=== PATIENT | female | born 1995 ===

== ENCOUNTER 2021-11-03 13:09 | Emergency (ER) | payer OTHER, SELFPAY ==
--- NOTE | 2021-11-03 13:13 | ECG_ITS ---
Test Reason : chest muscle pain Blood Pressure : / mmHG Vent. Rate : 098 BPM Atrial Rate : 098 BPM P-R Int : 152 ms QRS Dur : 086 ms QT Int : 356 ms P-R-T Axes : 039 007 021 degrees QTc Int : 454 ms Normal sinus rhythm Inferior infarct , age undetermined Cannot rule out Anterior infarct , age undetermined Abnormal ECG No previous ECGs available Referred By: Generic ED Physician Electronically Signed By:DAYAMI BOWERS MD
[2021-11-03 13:14] VITALS: BP 147/93; PULSE 90; RESP 18; TEMP 36.6; O2SAT 98; BMI 50.1
--- NOTE | 2021-11-03 15:41 | ED.GENADULT ---
HPI - General Adult General Chief complaint: General Medical Stated complaint: chest pain Time Seen by Provider: 11/03/21 15:41 Source: patient Mode of arrival: ambulatory Limitations: no limitations History of Present Illness HPI narrative: 26 yo female presents to the ER for evaluation of chest wall pain since yesterday after she was pushing a vehicle. She reports the pain is in left side of her breast bone and it is worse with movement her arms and when she moves her head up. She states the pain got worse after she was pushing her uncle's car. She did fall or sustain any injuries. She denies any other muscle pains or aches. No SOB. No leg pain or swelling. She took some tylenol for the pain but did not have any relief. MD complaint: chest wall pain Onset (ago): day(s) (1) Location: chest Radiation: non-radiation Severity: moderate Severity scale (1-10): 6 Quality: aching Pain Consistency: intermittent Relieving factors: rest Exacerbating factors: movement Associated symptoms: denies other symptoms Treatments prior to arrival: none Related Data Previous Rx's Medication Instructions Recorded naproxen 500 mg tablet 500 mg PO BID PRN pain #20 tabs 11/03/21 Allergies Allergy/AdvReac Type Severity Reaction Status Date / Time No Known Allergies Allergy Unverified 01/11/20 16:13 [No Known Allergies*] Review of Systems Review of Systems: Constitutional: No Fever, No Chills ENT/Mouth: No sore throat Cardiovascular: + Chest Pain, No SOB, No Orthopnea, No Edema Respiratory: No Cough, No Sputum, No Wheezing, No dyspnea Gastrointestinal: No Nausea, No Vomiting, No abdominal Pain Musculoskeletal: No joint pain, No Myalgias Skin: No Skin Lesions, No rash Neuro: No Weakness, No Numbness, No Dizziness, No Headache Psych: No Anxiety/Panic, No Depression Heme/Lymph: No Bruising, No Lymphadenopathy Physical Exam ED Vital Signs: Vital Signs - 24 hr 11/03/21 13:14 Temperature 98 F Pulse Rate 90 Respiratory Rate 18 Blood Pressure 147/93 H Pulse Oximetry 98 BMI result Body Mass Index 50.1 Appearance: Alert. Oriented X3. No acute distress. HEENT: normal inspection CVS: Normal heart rate and rhythm. Pulses normal. Respiratory: No respiratory distress. Lungs CTAB. No chest wall ecchymosis. Tenderness along the left sternal border, reproducible with palpation and movement of the arms. Skin: Skin warm and dry. Normal skin color. Normal skin turgor. No rashes. Extremities: normal inspection x4, no leg swelling, no calf pain Neuro: Oriented X 3. Grossly normal, nonfocal Course Course Course Narrative: 26 yo female presents to the ER with nontraumatic, reproducible central chest pain that is worse with movement of her UE. Started after she was playing with her kids and pushing her uncle's car. EKG is unremarkable. Exam and clinical presentation is consistent with costochondritis. PERC negative. Will treat with NSAID and have her follow up with her PCP. Return precauations discussed. Stable for d/c home. Medical Decision Making ECG Data Attestation: I personally reviewed and interpreted this ECG as follows: Interpretation: normal sinus rhythm, HR 98 BPM, normal NV interval, normal QTc, no ST segment elevations or depressions. Critical Care Time Critical Care Time Critical Care Time: No Discharge Plan Discharge Clinical Impression: Acute costochondritis Patient Disposition: Home, Self-Care Instructions: Costochondritis (ED) Additional Instructions: Your EKG today was normal. Take the prescribed anti-inflammatory pain medication as needed for pain. Rest. No heavy lifting until better. Follow up with your PCP as needed. If you develop new or worsening symptoms call 911 or come back to the ER for further evaluation. Prescriptions: New naproxen 500 mg tablet 500 mg PO BID PRN (Reason: pain) Qty: 20 0RF
== END 2021-11-03 16:17 | disposition home or self-care (01) ==
PROVIDERS: Emergency Provider Emergency Medicine
DX: M94.0 Chondrocostal junction syndrome [Tietze] (principal); R07.89 Other chest pain
CPT/HCPCS: 93005; 99283

== ENCOUNTER 2021-12-24 16:34 | Emergency (ER) | payer OTHER, SELFPAY ==
[2021-12-24 16:36] VITALS: BP 135/105; PULSE 111; RESP 18; TEMP 36.8; O2SAT 98; BMI 50.8
--- NOTE | 2021-12-24 18:19 | ED.GENADULT ---
HPI - General Adult General Chief complaint: Eye Problems Stated complaint: facial pressure,headache Time Seen by Provider: 12/24/21 17:24 Source: patient Mode of arrival: ambulatory Limitations: no limitations History of Present Illness HPI narrative: Patient is a 26 year old female presenting to the emergency department today with drainage of her left eye and not feeling well. Patient states that her daughter has been home sick with the same symptoms. Patient states that over the last 3 days, she has woken up with left eye drainage and pressure as well not feeling well. Patient denies any dizziness, lightheadedness, abdominal pain, nausea, vomiting, fever, chills, blurry vision, double vision, loss of vision, chest pain, difficulty breathing, shortness of breath, back pain, night sweats, pain with urination, increased urinary frequency, increased urinary urgency, blood in her urine or stool, syncope or a near syncopal episode, recent trauma or falls, bowel incontinence, bladder incontinence, bowel retention, bladder retention, or any other complaints at this time. Onset (ago): day(s) (3) Radiation: non-radiation Severity: mild Severity scale (1-10): 2 Quality: aching and dull Pain Consistency: constant Relieving factors: none Exacerbating factors: none Associated symptoms: denies other symptoms Treatments prior to arrival: none Related Data Previous Rx's Medication Instructions Recorded naproxen 500 mg tablet 500 mg PO BID PRN pain #20 tabs 11/03/21 erythromycin 5 mg/gram (0.5 %) eye 0.5 inch ophthalmic (eye) DAILY 7 12/24/21 ointment days #3.5 grams penicillin V potassium 500 mg 500 mg PO BID 10 days #20 tabs 12/24/21 tablet Allergies Allergy/AdvReac Type Severity Reaction Status Date / Time No Known Allergies Allergy Unverified 01/11/20 16:13 [No Known Allergies*] Review of Systems Constitutional: Constitutional: Reports no additional constitutional complaints, Denies chills, Denies fever(s) and Denies night sweats Eyes: Eyes: Reports no additional eye complaints, Denies blurry vision, Denies change in vision, Denies diplopia, Reports eye discharge, Denies loss of vision and Denies eye pain ENT: Denies dizziness Cardiovascular: Cardiovascular: Reports no additional cardiovascular complaints, Denies chest pain, Denies lightheadedness, Denies Loss of Consciousness and Denies dyspnea Respiratory: Respiratory: Reports no additional respiratory complaints and Denies dyspnea Gastrointestinal: Gastrointestinal: Reports no additional gastrointestinal complaints, Denies abdominal pain, Denies melena, Denies hematochezia, Denies change in bowel habits and Denies change in stool character Genitourinary: Genitourinary: Denies hematuria, Denies urinary frequency, Denies dysuria, Denies urinary incontinence, Denies urinary hesitancy and Denies urinary urgency Musculoskeletal: Musculoskeletal: Reports no additional musculoskeletal complaints, Denies numbness and Denies tingling Neurologic: Denies dizziness, Denies loss of vision, Denies numbness and Denies tingling Psychiatric: Psychiatric: Reports no additional psychiatric complaints Endocrine: Endocrine: Reports no additional endocrine complaints Hematologic/Lymphatic: Hematologic/Lymphatic: Reports no additional hematologic/lymphatic complaints Allergic/Immunologic: Allergic/Immunologic: Reports no additional allergic/immunologic complaints [facility] Past Medical History Attestation statement: The following information was validated with the patient. Source: old records reviewed Social History Social History Advance Directives: No Advance Directives Information Provided: No Physical Exam ED Vital Signs: Vital Signs - 24 hr 12/24/21 16:36 Temperature 98.2 F Pulse Rate 111 H Respiratory Rate 18 Blood Pressure 135/105 H Pulse Oximetry 98 Oxygen Delivery Method Room Air BMI result Body Mass Index 50.8 Const General: cooperative, no acute distress, alert and awake Nutritional Appearance: well nourished Orientation/consciousness: patient oriented x3 Limitations: no limitations [facility] Head: Yes normal to inspection and Yes atraumatic Ears: hearing grossly normal bilaterally and external ears normal General nose exam: Normal external nose present, no nasal discharge noted and no epistaxis Face and sinus: Yes normal facial exam, No abrasion and No laceration Mouth: Normal oral and palatal mucosa present, no drooling and no muffled voice Eyes General: appearance normal, both eyes and all related structures Periorbital: periorbital findings normal Eyelids: Yes eyelids normal Conjunctivae: conjunctivae normal Pupils: Equal, round and reactive pupils present EOM: EOMs intact bilaterally Neck Neck: Yes normal visual inspection, Yes full ROM and Yes no lymphadenopathy Chest Chest palpation & inspection: normal inspection of the chest Resp Effort & Inspection: normal respiratory effort and able to speak in complete sentences Auscultation: clear to auscultation bilaterally Cardio Rate: regular rate Rhythm: regular rhythm GI Inspection: Yes normal to inspection Neuro General: patient oriented x3 and moves all extremities Cranial nerves: Yes Equal, round and reactive pupils present Cognition (Neuro): normal cognition Motor exam (neuro): 5/5 motor strength present throughout Sensory Exam: Normal double simultaneous stimulation for sensation Coordination: [id number] test normal Extrem General: Yes normal to inspection, Yes full ROM and Yes capillary refill normal Psych Appearance: grossly normal Mental Status: mental status grossly normal Affect: normal affect Attitude: cooperative Thought process: Normal thought process present Thought content: Normal thought content present Insight: Good insight present (Psych) Medical Decision Making MDM Narrative Medical decision making narrative: Patient is a 26 year old female presenting to the emergency department today with left eye discharge and feeling generally unwell. Patient's physical exam was unremarkable. I explained my physical exam findings to the patient. I answered all questions asked by the patient. I stressed the importance of the patient taking her medication as prescribed. I stressed the importance of the patient following up with her primary care provider. I stressed the importance of the patient returning to the emergency department immediately if her symptoms were to worsen or if she were to develop any dizziness, shortness of breath, difficulty breathing, chest pain, blurry vision, loss of vision, nausea, vomiting, abdominal pain, fever, chills, back pain, or any other complaints. Patient verbalized agreement and understanding with this treatment plan and discharge. Differential Diagnosis Differential Diagnosis: conjunctivitis, pharyngitis Medical Records Medical records reviewed: Yes I reviewed the patient's medical records. Discharge Plan Discharge Clinical Impression: Bacterial conjunctivitis, Pharyngitis Patient Disposition: Home, Self-Care Instructions: Pharyngitis (ED), Conjunctivitis (ED) Additional Instructions: Follow up with your primary care provider. Return to the emergency department immediately if your symptoms worsen or if you develop any dizziness, shortness of breath, difficulty breathing, chest pain, blurry vision, loss of vision, nausea, vomiting, abdominal pain, fever, chills, back pain, or any other complaints. Prescriptions: New penicillin V potassium 500 mg tablet 500 mg PO BID 10 Days Qty: 20 0RF erythromycin 5 mg/gram (0.5 %) ointment 0.5 inch ophthalmic (eye) DAILY 7 Days Qty: 3.5 0RF No Action naproxen 500 mg tablet 500 mg PO BID PRN (Reason: pain) Qty: 20 0RF [place] [facility] [place] (Call to establish and follow up with a primary care provider. If you already have a primary care provider, please call and follow up with them. ) [facility] [place] Group] (Call to establish and follow up with a primary care provider. If you already have a primary care provider, please call and follow up with them. ) [facility] [place]] (Call to establish and follow up with a primary care provider. If you already have a primary care provider, please call and follow up with them. ) Stand Alone Forms: Work/School Release Print Language: [place]
== END 2021-12-24 18:48 | disposition home or self-care (01) ==
PROVIDERS: Emergency Provider Emergency Medicine
DX: H10.32 Unspecified acute conjunctivitis, left eye (principal); J02.9 Acute pharyngitis, unspecified; R51.9 Headache, unspecified; Z79.899 Other long term (current) drug therapy
CPT/HCPCS: 99281; 99283

== ENCOUNTER 2022-12-23 17:17 | Outpatient (REF) | payer MEDICAID, SELFPAY ==
[2022-12-23 20:38] LABS: Influenza A PCR NEGATIVE (Negative); Influenza B PCR NEGATIVE (Negative); Resp Syncy Virus RNA Qual PCR NEGATIVE (Negative); SARS COV2 PCR INHOUSE NEGATIVE (Negative)
== END 2022-12-23 17:18 | disposition home or self-care (01) ==
LOC: HO.HHCLNP 17:17
PROVIDERS: Visit Provider Emergency Medicine
DX: R68.89 Other general symptoms and signs (principal); Z20.822 Contact with and (suspected) exposure to COVID-19
CPT/HCPCS: 0241U; 87070; 87147

== ENCOUNTER 2023-01-25 18:09 | Outpatient (REF) | payer MEDICAID, SELFPAY ==
[2023-01-25 19:10] LABS: Influenza A PCR NEGATIVE (Negative); Influenza B PCR NEGATIVE (Negative); Resp Syncy Virus RNA Qual PCR NEGATIVE (Negative); SARS COV2 PCR INHOUSE NEGATIVE (Negative)
== END 2023-01-25 18:10 | disposition home or self-care (01) ==
LOC: HO.HHCLNP 18:09
PROVIDERS: Visit Provider Internal Medicine
DX: R05.9 Cough, unspecified (principal); Z11.52 Encounter for screening for COVID-19
CPT/HCPCS: 0241U

== ENCOUNTER 2023-02-03 11:18 | Outpatient (REF) | payer MEDICAID, SELFPAY ==
[2023-02-05 22:53] LABS: C. trachomatis RNA TMA NOT DETECTED (NOT DETECTED); N. gonorrhoeae RNA TMA NOT DETECTED (NOT DETECTED); Trichomonas (NAAT) NOT DETECTED (NOT DETECTED)
== END 2023-02-03 11:19 | disposition home or self-care (01) ==
LOC: HO.HHCL 11:18
PROVIDERS: Visit Provider Advanced Practice Midwife
DX: N93.9 Abnormal uterine and vaginal bleeding, unspecified (principal); Z12.4 Encounter for screening for malignant neoplasm of cervix
CPT/HCPCS: 36415; 84443; 85014; 85018; 87491; 87591; 87661; 88142

== ENCOUNTER 2023-06-23 07:17 | Emergency (ER) | payer MEDICAID, SELFPAY ==
[2023-06-23 07:19] VITALS: BP 121/79; PULSE 82; RESP 14; TEMP 36.8; O2SAT 95; BMI 51.0
--- NOTE | 2023-06-23 07:55 | ED.BACK ---
HPI - Back Pain/Injury General Chief Complaint: Back Pain/Injury Stated Complaint: Back Side & Chest Pain Time Seen by Provider: 06/23/23 07:31 Source: patient Mode of arrival: ambulatory Limitations: no limitations History of Present Illness HPI Narrative: 28 yo female otherwise healthy here with c/o bilateral paraspinal pain with spasm no radicular symptoms no numbness no weakness no loss of control of bowel or bladder. This started two days ago after lifting a 65lb entertainment center at home on her own. 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 She has tried tylenol and motrin last dose tylenol today with little relief. She is not on thinners and does not use IVDA. MD elicited complaint: back injury Onset (ago): day(s) (2) Timing: constant Severity: moderate Similar Symptoms Previously: No Quality: spasming and throbbing Location: lumbar spine and thoracic spine Radiation: neck Exacerbating factors: movement and walking Relieving factors: immobilization Context: while lifting Associated symptoms: denies other symptoms Treatments prior to arrival: NSAIDS and acetaminophen Work related injury: No Related Data Previous Rx's Medication Instructions Recorded naproxen 500 mg tablet 500 mg PO BID PRN pain #20 tabs 11/03/21 erythromycin 5 mg/gram (0.5 %) eye 0.5 inch ophthalmic (eye) DAILY 7 12/24/21 ointment days #3.5 grams penicillin V potassium 500 mg 500 mg PO BID 10 days #20 tabs 12/24/21 tablet cyclobenzaprine 10 mg tablet 10 mg PO TID PRN muscle spasm #20 06/23/23 tabs ibuprofen 600 mg tablet 600 mg PO Q6H PRN pain #30 tabs 06/23/23 lidocaine 5 % topical patch 1 patch topical DAILY #30 ea 06/23/23 Allergies Allergy/AdvReac Type Severity Reaction Status Date / Time No Known Allergies Allergy Verified 06/23/23 07:19 [No Known Allergies*] Review of Systems Review of Systems: Constitutional : No Weight loss, No Fever, No Chills, ENT/Mouth : No Hearing loss, No Ear Pain, No Nasal Congestion, No Sinus Pain, No Hoarseness, No sore throat, No Rhinorrhea, No Swallowing Difficulty Cardiovascular : No Chest Pain, No SOB Respiratory : No Cough, No Dyspnea Gastrointestinal : No Nausea, No Vomiting, No Diarrhea, No abdominal Pain, No Hematochezia, No Melena Genitourinary : No Dysuria, No Urinary Frequency, No Hematuria, No Urinary Incontinence, Musculoskeletal : positive back pain Skin : No Skin Lesions, No rash Neuro : No Weakness, No Numbness, No Paresthesias, no loss of bowel or bladder incontinence, no saddle anesthesia all other systems reviewed and are negative [facility] Past Medical History Attestation statement: The following information was validated with the patient. Source: old records reviewed Medical History No pertinent past medical history Social History Social History (Updated 06/23/23 @ 08:01 by Deirdre Carlson DO) Patient Tobacco Use Status: Never used Tobacco Physical Exam Vital Signs: Vital Signs: Last Vital Signs Temp 98.3 F 06/23/23 07:19 Pulse 82 06/23/23 07:19 Resp 14 06/23/23 07:19 BP 121/79 06/23/23 07:19 Pulse Ox 95 06/23/23 07:19 O2 Del Method Room Air 06/23/23 07:19 BMI result Body Mass Index 51.0 Appearance: Alert. Oriented X3. No acute distress. Eyes: Pupils equal, round and reactive to light. ENT: Pharynx normal. Neck: Normal inspection. Neck supple. CVS: Normal heart rate and rhythm. Pulses normal. Respiratory: No respiratory distress. Breath sounds normal. Abdomen: Soft and nontender. Back: bilateral paraspinal ttp with reproduction of pain Skin: Skin warm and dry. Normal skin color. Normal skin turgor. Extremities: No lower extremity edema. No calf ttp Neuro: Oriented X 3. No motor deficit. No sensory deficit. L5 5/5 bilaterally SILT intact inner thigh Medical Decision Making Medical Decision Making [facility] Narrative: 28 yo female with no sig PMH here with back pain and injury after lifting she has no b/b incontinence no saddle anesthesia no radicular symptoms - no red flags she is neuro intact at this time will provide IM toradol and PO valium for spasm. Will start on medications for spasm and limit activities for the next two days Differential Diagnosis Differential Diagnoses: The differential diagnosis associated with the presentation includes back spasm, back pain Admission/Observation Consideration of admission/observation: Escalation of care including admission/observation considered pain improved able to walk stable for DC Prescription Management I considered prescription management with: Pain Medication and Other Discharge Plan Discharge Clinical Impression: Back muscle spasm Patient Disposition: Home, Self-Care Instructions: Muscle Spasm (ED), Back Pain (ED) Additional Instructions: return for worsening symptoms - numbness, weakness, loss of control of bowel or bladder or any other concerns no lifting more than 10lbs for 10 days Prescriptions: New cyclobenzaprine 10 mg tablet 10 mg PO TID PRN (Reason: muscle spasm) Qty: 20 0RF lidocaine 5 % adhesive patch,medicated 1 patch topical DAILY Qty: 30 0RF Rx Instructions: leave on most painful area for up to 12 hrs ibuprofen 600 mg tablet 600 mg PO Q6H PRN (Reason: pain) Qty: 30 0RF No Action naproxen 500 mg tablet 500 mg PO BID PRN (Reason: pain) Qty: 20 0RF penicillin V potassium 500 mg tablet 500 mg PO BID 10 Days Qty: 20 0RF erythromycin 5 mg/gram (0.5 %) ointment 0.5 inch ophthalmic (eye) DAILY 7 Days Qty: 3.5 0RF Stand Alone Forms: Work/School Release
[2023-06-23] MEDS: diazePAM 2 MG TABLET 5 MG PO (08:05)
[2023-06-23] MEDS: Ketorolac Tromethamine 30 MG/ML VIAL IM (08:06)
--- NOTE | 2023-06-23 08:26 | PC.NURSE ---
pt a&o x4, pleasant, calm, and cooperative. pt medicated per mar for pain. given heating packs for back. pt provided with willie crackers. call fong within reach. plan of care ongoing.
== END 2023-06-23 09:10 | disposition home or self-care (01) ==
PROVIDERS: Emergency Provider Emergency Medicine; PCP Nurse Practitioner Family
DX: M62.830 Muscle spasm of back (principal)
CPT/HCPCS: 96372; 99284; J1885

== ENCOUNTER 2023-10-01 17:25 | Outpatient (REF) | payer MEDICAID, SELFPAY | END 2023-10-01 17:26 | disposition home or self-care (01) | LOC: HO.HHCLNP 17:25 | PROVIDERS: Visit Provider Emergency Medicine | DX: R05.1 Acute cough (principal) | CPT/HCPCS: 87070; 87147 ==

== ENCOUNTER 2023-11-24 07:53 | Emergency (ER) | payer MEDICAID, SELFPAY ==
[2023-11-24 08:02] VITALS: BP 128/85; PULSE 90; RESP 18; TEMP 36.4; O2SAT 98; BMI 50.8
[2023-11-24 08:13] VITALS: BP 128/85; PULSE 90; RESP 18; TEMP 36.4; O2SAT 98
--- NOTE | 2023-11-24 08:18 | ED.GENADULT ---
HPI - General Adult General Chief complaint: Upper Respiratory Symptoms Stated complaint: sore throat Time Seen by Provider: 11/24/23 08:02 Source: patient Mode of arrival: ambulatory Limitations: no limitations History of Present Illness ED Provider: jj LI narrative: Patient is a 28-year-old female presenting to the emergency department with complaint of sore throat, nonproductive cough, bilateral ear pain, nasal congestion, body aches and chest pain since Wednesday. States chest pain is with episodes of coughing but yesterday felt as though the pain was radiating to her left arm. Reports subjective fevers. States daughter was recently sick with viral illness for 1 week. Has not taken any [id number] medications for her symptoms. Had nausea and vomiting yesterday, denies any today and has been able to tolerate fluids today. MD complaint: sore throat, cough Onset (ago): day(s) Associated symptoms: chest pain, cough and fever/chills Treatments prior to arrival: none Related Data Previous Rx's ?Medication ?Instructions ?Recorded naproxen 500 mg tablet 500 mg PO BID PRN pain #20 tabs 11/03/21 erythromycin 5 mg/gram (0.5 %) eye 0.5 inch ophthalmic (eye) DAILY 7 12/24/21 ointment days #3.5 grams penicillin V potassium 500 mg 500 mg PO BID 10 days #20 tabs 12/24/21 tablet cyclobenzaprine 10 mg tablet 10 mg PO TID PRN muscle spasm #20 06/23/23 tabs ibuprofen 600 mg tablet 600 mg PO Q6H PRN pain #30 tabs 06/23/23 lidocaine 5 % topical patch 1 patch topical DAILY #30 ea 06/23/23 ondansetron 4 mg disintegrating 4 mg PO Q8H PRN nausea and 11/24/23 tablet vomiting #6 tabs Allergies Allergy/AdvReac Type Severity Reaction Status Date / Time No Known Allergies Allergy Verified 11/24/23 08:03 [No Known Allergies*] Review of Systems Review of Systems: As per HPI. Yes all other systems are reviewed and are negative Constitutional: Constitutional: Reports as per HPI [facility] Past Medical History Medical History No pertinent past medical history Social History Social History (Updated 06/23/23 @ 08:01 by Deirdre Carlson DO) Patient Tobacco Use Status: Never used Tobacco Smoked in Last 30 Days: Yes Substance Use Type: Marijuana Advance Directives: No Advance Directives Information Provided: No Patient : No Physical Exam ED Vital Signs: Vital Signs - 24 hr 11/24/23 08:02 11/24/23 08:13 11/24/23 08:13 Temperature 97.5 F 97.5 F Pulse Rate 90 90 Respiratory Rate 18 18 Blood Pressure 128/85 128/85 Pulse Oximetry 98 98 98 Oxygen Delivery Method Room Air Room Air Room Air BMI result Body Mass Index 50.8 Vital signs have been reviewed and appear to be correct. Blood pressure normal. Heart rate normal. Respiratory rate normal. Temperature normal. Oxygen saturation normal. Const General: cooperative, healthy appearing and no acute distress Orientation/consciousness: oriented to person, oriented to place, oriented to time and patient oriented x3 Limitations: no limitations HENMT Head: Yes normocephalic and Yes atraumatic Ears: external ears normal, TM's normal bilaterally and EAC's normal General nose exam: Normal external nose present, Normal nasal mucous membranes and turbinates present and Normal septum present Face and sinus: Yes face symmetric Mouth: Normal oral and palatal mucosa present, lip normal, tongue normal, oropharynx normal and moist mucous membranes Throat: Yes uvula midline, Yes abnormal tonsil (erythema, no edema or exudate), No peritonsillar mass and No uvular edema Eyes Pupils: Equal, round and reactive pupils present Neck Neck: Yes normal visual inspection, Yes no lymphadenopathy and Yes supple Resp Effort & Inspection: normal respiratory effort and able to speak in complete sentences Auscultation: clear to auscultation bilaterally Cardio Rate: regular rate Rhythm: regular rhythm Heart sounds: S1 normal heart sound present and S2 normal heart sound present GI Palpation (GI): Soft to palpation and nontender Auscultation: normoactive bowel sounds General: Yes no CVA tenderness Back/Spine/Pelvis Back: no CVA tenderness Skin General skin exam: elasticity normal and turgor normal Neuro General: oriented to person, oriented to place, oriented to time, patient oriented x3, moves all extremities, no focal motor deficits and CN's II-XI intact bilaterally Cranial nerves: Yes Equal, round and reactive pupils present Cognition (Neuro): normal cognition Extrem General: Yes full ROM, Yes no pedal edema and Yes no calf tenderness Psych Mental Status: mental status grossly normal Affect: normal affect Thought process: Normal thought process present Medical Decision Making Medical Decision Making [facility] Narrative: Patient is a 28-year-old female presenting to the emergency department with complaint of sore throat, nonproductive cough, bilateral ear pain, nasal congestion, body aches and chest pain since Wednesday. On exam patient is awake, A+Ox3, VS WNL, afebrile, normal neurological exam without focal deficits, physical exam findings as above. Given reported symptoms and physical exam findings, initial differential includes viral illness, COVID, flu, strep pharyngitis. Unlikely ACS but will obtain EKG. EKG shows normal sinus rhythm. Viral swab positive for Covid, strep negative. Results discussed with patient and all questions answered. Discussed treatment with Paxlovid which patient declined. Isolation discussed. Patient verbalized understanding of and agreement with plan. Differential Diagnosis Differential Diagnoses: The differential diagnosis associated with the presentation includes As per [facility] Lab Data [facility] Lab Attestation statement: I reviewed the patient's lab results. As per [facility] Labs: Lab Results 11/24/23 Range/Units 08:09 Influenza Type A (PCR) NEGATIVE (Negative) Influenza Type B (PCR) NEGATIVE (Negative) RSV RNA Qual (PCR) NEGATIVE (Negative) SARS-CoV-2 RNA (RT-PCR) POSITIVE A (Negative) S. pyogenes GrpA ANNABEL Negative (Negative) Independent Interpretation I performed an independent interpretation of an: EKG (normal sinus rhythm, rate 77bpm, normal TX interval and QTc) External Record Review External record reviewed: Inpatient record, Office record and Outpatient record Prescription Management I considered prescription management with: Antiviral Discharge Plan Discharge Clinical Impression: COVID-19 Patient Disposition: Home, Self-Care Instructions: COVID-19 (Coronavirus Disease 2019) (ED) Additional Instructions: You were evaluated in the emergency department today for sore throat, cough, fever. Your COVID test was resulted as positive. You should continue to isolate at home for another 4 days. You should continue to wear mask for 5 days after that. You were offered treatment with Paxlovid which you deferred. If you change your mind within the next 48 hours, contact your primary care provider to discuss this treatment. Return to the emergency department with worsening shortness of breath, chest pain, fever that does not improve with Tylenol or ibuprofen, persistent vomiting, or any other concerning symptoms. You should follow-up with your primary care provider. Prescriptions: New ondansetron 4 mg tablet,disintegrating 4 mg PO Q8H PRN (Reason: nausea and vomiting) Qty: 6 0RF No Action naproxen 500 mg tablet 500 mg PO BID PRN (Reason: pain) Qty: 20 0RF penicillin V potassium 500 mg tablet 500 mg PO BID 10 Days Qty: 20 0RF erythromycin 5 mg/gram (0.5 %) ointment 0.5 inch ophthalmic (eye) DAILY 7 Days Qty: 3.5 0RF cyclobenzaprine 10 mg tablet 10 mg PO TID PRN (Reason: muscle spasm) Qty: 20 0RF lidocaine 5 % adhesive patch,medicated 1 patch topical DAILY Qty: 30 0RF Rx Instructions: leave on most painful area for up to 12 hrs ibuprofen 600 mg tablet 600 mg PO Q6H PRN (Reason: pain) Qty: 30 0RF Stand Alone Forms: Work/School Release Print Language: Jamaican
--- NOTE | 2023-11-24 08:23 | ECG_ITS ---
Test Reason : chest pain Blood Pressure : / mmHG Vent. Rate : 077 BPM Atrial Rate : 077 BPM P-R Int : 158 ms QRS Dur : 080 ms QT Int : 372 ms P-R-T Axes : 054 017 022 degrees QTc Int : 420 ms Normal sinus rhythm Cannot rule out Anterior infarct (cited on or before 03-NOV-2021) Abnormal ECG When compared with ECG of 03-NOV-2021 13:05, No significant change was found Referred By: Kamini Mckeon Electronically Signed By:Gurjit Calles
[2023-11-24 08:39] LABS: IDNOW Serial# 08D9AD1C; Strep A Nucleic Acid Negative (Negative)
[2023-11-24 09:17] LABS: Influenza A PCR NEGATIVE (Negative); Influenza B PCR NEGATIVE (Negative); Resp Syncy Virus RNA Qual PCR NEGATIVE (Negative); SARS COV2 PCR INHOUSE POSITIVE (Negative)
[2023-11-24 09:36] VITALS: BP 128/85; PULSE 90; RESP 18; TEMP 36.4; O2SAT 98
== END 2023-11-24 09:36 | disposition home or self-care (01) ==
PROVIDERS: Registered Nurse Emergency; Emergency Provider Emergency Medicine; PCP Nurse Practitioner Family
DX: U07.1 COVID-19 (principal); J02.9 Acute pharyngitis, unspecified; R07.89 Other chest pain
CPT/HCPCS: 0241U; 87651; 93005; 99283; 99285

== ENCOUNTER → 2023-11-24 08:23 | Outpatient (BNV) | payer MEDICAID, SELFPAY | PROVIDERS: Emergency Provider Emergency Medicine; PCP Nurse Practitioner Family; Visit Provider Internal Medicine Cardiovascular Disease | DX: R94.31 Abnormal electrocardiogram [ECG] [EKG] (principal) | CPT/HCPCS: 93010 ==

== ENCOUNTER 2024-02-18 08:16 | Inpatient (IN) | payer MEDICAID, SELFPAY ==
[2024-02-18] VITALS (8 sets, daily range): BP systolic 102–118; BP diastolic 50–76; PULSE 95–118; RESP 18–103; TEMP 36.1–39.4; O2SAT 95–99; BMI 50.5; BMI 51.1
--- NOTE | ~2024-02-18 | CT_ITS ---
EXAMINATION: CT ABDOMEN AND PELVIS WITH CONTRAST CLINICAL INFORMATION: Left lower quadrant pain and tenderness. COMPARISON: Most recent limited abdominal ultrasound dated 08/16/[address] abdomen/pelvis dated 05/08/2018. TECHNIQUE: Multidetector volumetric images were obtained from the superior aspect of the liver through the pubic symphysis following administration 85 mL of Omnipaque 350 intravenous contrast. Sagittal and coronal reformatted images were obtained on the technologist's workstation. Oral contrast: No This CT examination was performed using dose optimization techniques as appropriate, variously including the following: *Automated exposure control *Adjustment of mA and/or kV according to patient size (this includes techniques or standardized protocols for targeted exams where dose is matched to indication/reason for exam; i.e. extremities or head) *Use of iterative reconstruction technique DLP: 889 mGy-cm FINDINGS: LUNG BASES: The visualized lung bases are unremarkable. LIVER, GALLBLADDER, AND BILIARY TREE: The liver is normal in size and shape. Diffuse parenchymal hypoattenuation consistent with steatosis. There are areas of fatty sparing within the lateral right hepatic lobe as well as centrally. No focal hepatic lesion or biliary ductal dilatation is present. Status post cholecystectomy. PANCREAS: Unremarkable. SPLEEN: Unremarkable. ADRENAL GLANDS: Unremarkable. KIDNEYS AND URETERS: The kidneys are normal in size, shape, and attenuation. No hydronephrosis, hydroureter, or calculi seen. No perinephric stranding. BLADDER: Unremarkable. GASTROINTESTINAL TRACT: Left lower quadrant sigmoid colon diverticula with associated hyperdensity as well as wall thickening and adjacent fat stranding, consistent with acute diverticulitis (axial image 66/94). No extraluminal air or organized fluid collection to suggest perforation or abscess formation. No small or large bowel obstruction. Unremarkable appendix. PERITONEAL CAVITY: No intra-abdominal free air or free fluid. No intra-abdominal mass or organized fluid collection/abscess formation. ABDOMINAL WALL: No significant hernia is appreciated. LYMPH NODES: No significant lymphadenopathy. VASCULAR: Unremarkable. PELVIC VISCERA: The uterus and adnexa are unremarkable. OSSEOUS STRUCTURES: Unremarkable. CT/CT abdomen pelvis w IV con IMPRESSION: 1. Acute left lower quadrant sigmoid diverticulitis. No evidence of perforation or abscess formation. 2. Hepatic steatosis. No hepatic parenchymal lesion or biliary ductal dilatation. Fleischner guidelines were followed. Electronically signed by: Sumanth Oseguera MD 02/18/2024 11:02 AM EDT
--- NOTE | 2024-02-18 08:50 | PC.NURSE ---
a&ox4. vss and up to date. sinus tachy on the electronic device monitor - pt denies chest pain/palpitations. pt presents to the ED c/o 10/10 LLQ pain that radiates to RLQ x wednesday. pt reports pain worsens w/ movement. subsides w/ rest. abd tender w/ palpation. pt also c/o nausea w/ nonbloody vomiting/diarrhea. pt denies any fever but reports chills x last night. denies chance of . LMP some time last week. 20gIV placed in the left AC - labs obtained/sent to lab. urine obtained/sent to lab. no sob/wob noted. respirations even/unlabored. plan of care ongoing. call fong placed within reach.
[2024-02-18 08:52] LABS: MANUAL DIFF FLAG NO
--- NOTE | 2024-02-18 08:55 | ED_ITS ---
HPI - Abdominal Pain General Chief Complaint: Abdominal Pain Stated Complaint: abd pain Time Seen by Provider: 02/18/24 08:54 Source: patient Mode of arrival: ambulatory Limitations: no limitations History of Present Illness ED Provider: Flaco Smith PA-C HPI narrative: 28 yo female with history of morbid obesity who presents to the ER for evaluation of 2-3 days of LLQ abdominal cramping pain with nausea and vomiting. Patient reports the pain comes in severe waves, doubles her over in pain. She has had a diffuse headache as well. She has not had any diarrhea or constipation. Her last bowel movement was yesterday and was normal. She reports the pain is primarily in the left lower quadrant, worse with any movement. It sometimes radiates to the center of her abdomen. She denies any urinary symptoms. No vaginal discharge. Denies chance of . No known sick contacts. No fevers at home. MD elicited complaint: abdominal pain Pertinent past history: none Onset (ago): day(s) (3) Pain Consistency: intermittent Location: LLQ Severity: severe Pain scale (0-10): 9 Quality: cramping and stabbing Radiation: other (Periumbilical) Migration to: no migration Exacerbating factors: movement Relieving factors: nothing Associated symptoms: nausea and vomiting Related Data Previous Rx's ?Medication ?Instructions ?Recorded naproxen 500 mg tablet 500 mg PO BID PRN pain #20 tabs 11/03/21 erythromycin 5 mg/gram (0.5 %) eye 0.5 inch ophthalmic (eye) DAILY 7 12/24/21 ointment days #3.5 grams penicillin V potassium 500 mg 500 mg PO BID 10 days #20 tabs 12/24/21 tablet cyclobenzaprine 10 mg tablet 10 mg PO TID PRN muscle spasm #20 06/23/23 tabs ibuprofen 600 mg tablet 600 mg PO Q6H PRN pain #30 tabs 06/23/23 lidocaine 5 % topical patch 1 patch topical DAILY #30 ea 06/23/23 ondansetron 4 mg disintegrating 4 mg PO Q8H PRN nausea and 11/24/23 tablet vomiting #6 tabs Allergies Allergy/AdvReac Type Severity Reaction Status Date / Time No Known Allergies Allergy Verified 02/18/24 08:26 [No Known Allergies*] Review of Systems Review of Systems Yes all other systems are reviewed and are negative PMFSH Past Medical History Medical History (Updated 02/18/24 @ 13:22 by Wolfgang Manzo MD) Morbid obesity No pertinent past medical history Social History Social History (Updated 06/23/23 @ 08:01 by Deirdre Carlson DO) Unable to assess alcohol history related to: Unable to respond Patient Tobacco Use Status: Never used Tobacco Smoked in Last 30 Days: Yes Use of substances other than those prescribed or required for medical reasons: Yes Substance Use Type: Marijuana Advance Directives: No Advance Directives Information Provided: No Nutrition Risks: No Nutritional Risk Patient : No Physical Exam ED Vital Signs: Vital Signs - 24 hr 02/18/24 08:24 02/18/24 10:17 02/18/24 12:07 Temperature 98.8 F 100.0 F 98.3 F Pulse Rate 118 H 103 H Respiratory Rate 18 18 103 H Blood Pressure 109/76 105/51 L 118/68 Pulse Oximetry 97 97 98 Oxygen Delivery Method Room Air Room Air Room Air BMI result Body Mass Index 50.5 Appearance: Alert. Oriented X3. Appears uncomfortable Head: normocephalic, atraumatic. Eyes: Pupils equal, round and reactive to light. ENT: Pharynx normal. No tonsillar swelling or exudate. Neck: Normal inspection. Neck supple. CVS: Normal heart rate and rhythm. Pulses normal. Respiratory: No respiratory distress. Breath sounds normal. Abdomen: Obese, Soft with significant tenderness and guarding to the left lower quadrant. Positive rebound. Normal active +BS x4 Skin: Skin warm and dry. Normal skin color. Normal skin turgor. No rashes. Extremities: No lower extremity edema. No joint swelling. Neuro/psych: Oriented X 3. No motor deficit. No sensory deficit. CN II-XII intact. Normal speech and cognition. Medical Decision Making Medical Decision Making MDM Narrative: 28-year-old female presents to the ER for evaluation of intermittent, severe left lower quadrant abdominal cramping for the last 2 or 3 days. It is accompanied with nausea, vomiting, headaches. She reports the vomiting is due to severe pain waves. On examination she appears uncomfortable, she is tachycardic, likely due to pain. She has significant tenderness in her left lower quadrant. IV was established and she was given IV morphine and Zofran. CT scan and lab work were performed. Lab work showing a stable microcytic anemia with a significant leukocytosis of 18.7. Platelets are normal. No major metabolic derangement or evidence of dehydration. Urinalysis shows possible UTI with moderate leukocyte esterase and some white blood cells however may be contaminated with squamous cells. Empiric IV Rocephin given due to her leukocytosis, tachycardia and severe pain. CT scan of her abdomen was performed that showed acute left lower quadrant sigmoid diverticulitis without evidence of perforation or abscess. Upon re- evaluation patient continued to have significant discomfort and pain. Toradol and Flagyl added. Case discussed with Dr. Manzo who will admit the patient for further management. He came to the bedside to evaluate the patient in the ER Differential Diagnosis Differential Diagnoses: The differential diagnosis associated with the presentation includes UTI, pyelonephritis, diverticulitis, colitis, intra-abdominal abscess, PID, TOA Admission/Observation Consideration of admission/observation: Escalation of care including admission/observation considered Consult Healthcare Provider Management of the patient was discussed with: [employer] Dr. Manzo general surgeon Lab Data MDM Lab Attestation statement: I reviewed the patient's lab results. Microcytic anemia, leukocytosis, normal BUN and creatinine 02/18/24 08:43 02/18/24 08:43 Labs: Lab Results 02/18/24 02/18/24 02/18/24 Range/Units 08:43 09:12 10:12 WBC 18.7 H (4.8-10.8) X10*3/uL RBC 5.19 (4.20-5.50) X10*6/uL Hgb 11.4 L (12.0-16.0) g/dl Hct 36.4 L (37.0-47.0) % MCV 70.1 L (80.0-98.0) fL MCH 22.0 L (27.0-33.0) pg MCHC 31.3 (31.0-35.0) g/dl RDW 16.2 H (11.0-16.0) % Plt Count 346 (160-400) X10*3/uL MPV 10.3 (9.4-12.3) fL Immature Gran % (Auto) 0.6 H (0.0-0.4) % Neut % (Auto) 91.0 H (45-73) % Lymph % (Auto) 4.3 L (20-40) % [place] % (Auto) 3.5 (2-11) % Eos % (Auto) 0.3 (0-4) % Baso % (Auto) 0.3 (0-2) % Lymph # (Auto) 0.8 L (1.2-4.9) X10*3/uL [place] # (Auto) 0.7 (0.1-1.2) X10*3/uL Eos # (Auto) 0.1 (0.0-0.4) X10*3/uL Baso # (Auto) 0.1 (0.0-0.2) X10*3/uL Abs Immat Gran (auto) 0.11 H (0.00-0.03) X10*3/uL Absolute Neuts (auto) 17.0 H (2.0-8.3) x10*3/uL Absolute Nucleated RBC 0.000 (0.0-0.012) X10*3/uL Nucleated RBC % (auto) 0.0 (0.0-0.2) /100WBC Sodium 137 (135-145) mmol/L Potassium 3.6 (3.3-5.1) mmol/L Chloride 105 (96-108) mmol/L Carbon Dioxide 25 (22-29) mmol/L Anion Gap 11 L (12-20) BUN 8 L (9-16) mg/dL Creatinine 0.77 (0.5-1.4) mg/dL Estim Creat Clear Calc 125.0 Estimated GFR > 60 Random Glucose 134 H (60-115) mg/dL Lactic Acid 1.4 (0.5-2.0) mmol/L Calcium 8.9 (8.4-10.2) mg/dL Total Bilirubin 0.2 (0.0-1.0) mg/dL AST 15 (5-31) U/L ALT 15 (0-31) U/L Alkaline Phosphatase 71 (39-117) U/L Total Protein 7.0 (6.5-8.0) g/dL Albumin 3.8 (3.5-5.0) g/dL Lipase 18 (8-78) U/L Beta HCG, Quant < 2 mIU/mL Urine Color Yellow Urine Appearance Clear Urine pH 6.0 (5.0-9.0) Ur Specific [place] 1.020 (1.005-1.025) Urine Protein Negative (Neg-Trace) mg/dL Urine Glucose (UA) Negative (Negative) mg/dL Urine Ketones Negative (Negative) mg/dL Urine Blood Negative (Negative) Urine Nitrite Negative (Negative) Ur Leukocyte Esterase Moderate (2+) H (Negative) Urine RBC 0-2 (0-2) /HPF Urine WBC 21-50 H (0-5) /HPF Ur Squamous Epith Cells 6-10 (0-2) /HPF Urine Bacteria 1+ (None Seen) Hyaline Casts 0-2 (0-2) /LPF Urine Test NEGATIVE (NEGATIVE) COVID-19 ([place]) Negative (Negative) COVID-19 Clin Com See Note Independent Interpretation I performed an independent interpretation of an: CT Scan Interpretation: CT scan with the inflammation in the left lower quadrant, no evidence of free air or air-fluid levels to suggest obstruction Radiology Impression Discussion of test interpretation with radiology: I have reviewed the radiologist's reading. Radiologist Impression: CT/CT abdomen pelvis w IV con IMPRESSION: 1. Acute left lower quadrant sigmoid diverticulitis. No evidence of perforation or abscess formation. 2. Hepatic steatosis. No hepatic parenchymal lesion or biliary ductal dilatation. External Record Review External record reviewed: Prior outpatient labs and Prior outpatient radiology Prescription Management I considered prescription management with: Pain Medication and Antibiotic Chronic Conditions Patient?s care impacted by: Other (Morbid obesity) Medications Administered Discontinued Medications Generic Name Dose Route Start Last Admin Trade Name Freq PRN Reason Stop Dose Admin Ceftriaxone Sodium 1 gm 02/18/24 09:51 02/18/24 10:18 Ceftriaxone Sodium 1 Gm Vial IVPUSH 02/18/24 09:52 1 gm ONCE ONE Administration Metronidazole 500 mg in 100 mls @ 100 mls/hr 02/18/24 11:36 02/18/24 13:15 Flagyl IV 02/18/24 12:35 Infused ONCE ONE Infusion Iohexol 85 ml 02/18/24 10:13 02/18/24 10:14 Iohexol 350 Mg/Ml 100 Ml Infus..Btl IV 02/18/24 10:14 85 ml ONCE ONE Administration Ketorolac Tromethamine 30 mg 02/18/24 11:36 02/18/24 12:13 Ketorolac Tromethamine 30 Mg/Ml Vial IVPUSH 02/18/24 11:37 30 mg ONCE ONE Administration Morphine Sulfate 4 mg 02/18/24 09:03 02/18/24 09:09 Morphine Sulfate 4 Mg/Ml Cartridge IVPUSH 02/18/24 09:04 4 mg ONCE ONE Administration Protocol Morphine Sulfate 4 mg 02/18/24 12:59 02/18/24 13:08 Morphine Sulfate 4 Mg/Ml Cartridge IVPUSH 02/18/24 13:00 4 mg ONCE ONE Administration Protocol Ondansetron HCl 4 mg 02/18/24 09:03 02/18/24 09:09 Ondansetron Hcl 4 Mg/2 Ml Vial IVPUSH 02/18/24 09:04 4 mg ONCE ONE Administration Critical Care Time Critical Care Time Critical Care Time: Yes Total Critical Care Time: 35 Attestation: I have personally provided critical care time exclusive of time spent on separately billable procedures. Time includes review of lab data, radiology results, discussion with consultants, and monitoring for potential decompensation. Intervention performed as documented. Discharge Plan Discharge Clinical Impression: Diverticulitis Patient Disposition: Admitted As Inpatient
[2024-02-18 08:56] LABS: Appearance Urine Clear; Color Urine Yellow; Glucose Urine UA Negative (Negative); Leukocyte Esterase Urine Moderate (2+) (Negative); Nitrite Urine Negative (Negative); UMIC TRIGGER UACC YES; Urine Blood Negative (Negative); Urine Ketones Negative (Negative); Urine Protein Negative (Neg-Trace)
[2024-02-18 08:57] LABS: UPreg QC Valid YES; Urine Pregnancy NEGATIVE (NEGATIVE)
[2024-02-18 09:02] LABS: Bacteria Urine 1+ (None Seen); Hyaline Casts Urine 0-2 /LPF (0-2); RBC Urine 0-2 /HPF (0-2); UACC Culture Trigger YES; WBC Urine 21-50 /HPF (0-5)
[2024-02-18 09:08] LABS: Basophils Absolute Auto 0.1 X10*3/uL (0.0-0.2); Basophils Percent Auto 0.3 % (0-2); Eosinophils Absolute Auto 0.1 X10*3/uL (0.0-0.4); Eosinophils Percent Auto 0.3 % (0-4); Hematocrit 36.4 % (37.0-47.0); Hemoglobin 11.4 g/dl (12.0-16.0); Imm Gran Abs Auto 0.11 X10*3/uL (0.00-0.03); Imm Gran Pct Auto 0.6 % (0.0-0.4); Lymphocytes Absolute Auto 0.8 X10*3/uL (1.2-4.9); Lymphocytes Percent Auto 4.3 % (20-40); Mean Corpuscular HGB Conc 31.3 g/dl (31.0-35.0); Mean Corpuscular Volume 70.1 fL (80.0-98.0); Mean Platelet Volume 10.3 fL (9.4-12.3); Monocytes Absolute Auto 0.7 X10*3/uL (0.1-1.2); Monocytes Percent Auto 3.5 % (2-11); Platelet Count 346 X10*3/uL (160-400); Red Blood Count 5.19 X10*6/uL (4.20-5.50); Red Cell Distribution Width 16.2 % (11.0-16.0); SCAN SMEAR FLAG 1; White Blood Count 18.7 X10*3/uL (4.8-10.8)
[2024-02-18] MEDS: ondansetron HCL 4 MG/2 ML VIAL IVPUSH ×2 (09:09→17:38)
[2024-02-18] MEDS: Morphine Sulfate 4 MG/ML CARTRIDGE IVPUSH ×4 (09:09→23:04)
[2024-02-18 09:13] LABS: Alanine Aminotransferase 15 U/L (0-31); Albumin Level 3.8 g/dL (3.5-5.0); Alkaline Phosphatase 71 U/L (39-117); Anion Gap 11 (12-20); Aspartate Amino Transferase 15 U/L (5-31); Bilirubin Total 0.2 mg/dL (0.0-1.0); Blood Urea Nitrogen 8 mg/dL (9-16); Calcium 8.9 mg/dL (8.4-10.2); Carbon Dioxide 25 mmol/L (22-29); Chloride 105 mmol/L (96-108); Estimated Glomerular Filt Rate > 60; Glucose Random 134 mg/dL (60-115); Lipase 18 U/L (8-78); Potassium 3.6 mmol/L (3.3-5.1); Sodium 137 mmol/L (135-145)
--- NOTE | 2024-02-18 09:14 | PC.NURSE ---
swab obtained/sent to lab. medication administered per provider order. effectiveness pending.
[2024-02-18 09:16] LABS: HCG Quantitative < 2 mIU/mL
[2024-02-18 09:46] LABS: COVID-19 Test Negative (Negative); IDNOW Serial# 152EDE1D
[2024-02-18] MEDS: iohexoL 350 MG/ML 100 ML INFUS..BTL 85 ML IV (10:14)
[2024-02-18] MEDS: cefTRIAXone sodium 1 GM VIAL IVPUSH (10:18)
--- NOTE | 2024-02-18 10:19 | PC.NURSE ---
cultures obtained/sent to lab. abx administered per provider order.
[2024-02-18 10:42] LABS: Lactic Acid 1.4 mmol/L (0.5-2.0)
[2024-02-18] MEDS: metroNIDAZOLE/NS 500 MG/100 ML PIGGYBACK 100 MG IV (12:13)
[2024-02-18] MEDS: Ketorolac Tromethamine 30 MG/ML VIAL IVPUSH ×2 (12:13→19:59)
--- NOTE | 2024-02-18 13:21 | P.HPGS_ITS ---
History of Present Illness History of Present Illness Date of Service: 02/20/24 Chief complaint: Acute diverticulitis Narrative: Rosalind Rajan is a 28 year old female in the ER for abdominal pain. She says this started about almost 48 hours ago. She describes this as on the left lower quadrant and lower abdomen. She says that seemed to be a little better yesterday but had persisted. She says that this seems to be worse with bowel movements as well. She denies any fever or chills. She denies any previous similar episodes. She denies dysuria She denies other GI complaints. She has significant morbid obesity. She says she used to be on blood pressure medications but she says she had stopped this on her own. She says that her blood pressure has been stable. Review of Systems Constitutional: Constitutional: Denies chills and Denies fever(s) Cardiovascular: Cardiovascular: Denies chest pain, Denies dyspnea and Denies dyspnea on exertion Respiratory: Respiratory: Denies cough, Denies dyspnea and Denies dyspnea on exertion Gastrointestinal: Gastrointestinal: Denies hematochezia and Denies change in bowel habits Genitourinary: Genitourinary: Denies hematuria Musculoskeletal: Musculoskeletal: Denies back pain and Denies limited range of motion Neurologic: Denies focal weakness and Denies convulsions Psychiatric: Psychiatric: Denies depression and Denies mood swings PMFSH Past Medical History Medical History (Updated 02/19/24 @ 10:02 by Wolfgang Manzo MD) Urinary tract infection HTN (hypertension) with goal to be determined Morbid obesity No pertinent past medical history Surgical History Surgical History (Updated 02/18/24 @ 18:26 by Wolfgang Manzo MD) History of laparoscopic cholecystectomy Social History Social History Household Members: Family and Children Housing: Apartment Do you presently have visiting nurse or other home services: No Unable to assess alcohol history related to: Unable to respond Patient Tobacco Use Status: Never used Tobacco Tobacco use type: Cigarette Cigarette Packs Per Day: 0.5 Cigarettes Per Day: 10.0 Smoked in Last 30 Days: Yes e-Cigarette/Vaping Use: Never Used Patient Interested in Nicotine Replacement: No Use of substances other than those prescribed or required for medical reasons: Yes Substance Use Type: Marijuana Substance Use Frequency: Daily Last Used Substance: Days (ago) Currently Displaying Signs/Symptoms of Drug Intoxication Withdrawal: No Any prior treatment program specific to substance use: No Have you been hit, kicked, punched, or otherwise hurt by someone within the past year? If so, by whom?: No Do you feel safe in your current relationship?: No Current Relationship Is there a partner from a previous relationship who is making you feel unsafe now?: No Are you made to feel afraid or neglected: No Advance Directives: No Advance Directives Information Provided: No Advance Directives on File: No Recently lost weight without trying: No Eating poorly because of decreased appetite: No Nutrition Risks: No Nutritional Risk Patient : No : No Poor oral hygiene: No service: No Meds Allergies Allergy/AdvReac Type Severity Reaction Status Date / Time No Known Allergies Allergy Verified 02/18/24 08:26 [No Known Allergies*] Home Medications ?Medication ?Instructions ?Recorded ?Confirmed ?Last Taken ?Type amlodipine 5 mg tablet 5 mg PO DAILY 02/18/24 02/18/24 Unknown History bupropion HCl 150 mg 24 hr tablet, 150 mg PO DAILY 02/18/24 02/18/24 Unknown History extended release Physical Exam Vital Signs: Vital Signs: Last Vital Signs Temp 98.3 F 02/18/24 12:07 Pulse 103 H 02/18/24 10:17 Resp 103 H 02/18/24 12:07 BP 118/68 02/18/24 12:07 Pulse Ox 98 02/18/24 12:07 O2 Del Method Room Air 02/18/24 12:07 BMI result Body Mass Index 50.5 Const: Other: Very morbidly obese General: no acute distress Orientation/consciousness: patient oriented x3 Neck: Neck: Yes no lymphadenopathy Resp: Auscultation: clear to auscultation bilaterally Cardio: Rhythm: regular rhythm GI: Other: Tender in the left lower quadrant Palpation (GI): Soft to palpation, not firm, Tenderness to palpation present (GI) and no guarding Neuro: General: patient oriented x3 Results Results Labs: Short CBC 02/18/24 Range/Units 08:43 WBC 18.7 H (4.8-10.8) X10*3/uL Hgb 11.4 L (12.0-16.0) g/dl Hct 36.4 L (37.0-47.0) % Plt Count 346 (160-400) X10*3/uL BMP 02/18/24 08:43 Sodium 137 Potassium 3.6 Chloride 105 Carbon Dioxide 25 BUN 8 L Creatinine 0.77 Calcium 8.9 Liver Function 02/18/24 Range/Units 08:43 Total Bilirubin 0.2 (0.0-1.0) mg/dL AST 15 (5-31) U/L ALT 15 (0-31) U/L Alkaline Phosphatase 71 (39-117) U/L Albumin 3.8 (3.5-5.0) g/dL Urine 02/18/24 Range/Units 08:43 Urine Color Yellow Urine Appearance Clear Urine pH 6.0 (5.0-9.0) Ur Specific [place] 1.020 (1.005-1.025) Urine Protein Negative (Neg-Trace) mg/dL Urine Glucose (UA) Negative (Negative) mg/dL Urine Test NEGATIVE (NEGATIVE) Assessment and Plan (1) Diverticulitis: Status: Acute She has left lower quadrant and lower abdominal pain a CT scan showing inflammatory changes in the sigmoid consistent with acute diverticulitis. There was no evidence of any collection. There was note of hyper density in the area. She does have leukocytosis but her exam is otherwise benign. I will admit her and start her on IV antibiotics with Zosyn. We will do bowel rest. We will do serial abdominal exams The rest of management will depend on her clinical course. She does understand that there is always a small chance of requiring urgent surgery. She should have a colonoscopy down the line to visually examine the area of the sigmoid colon and rule out other pathology. Quality Stroke Does the patient have a stroke diagnosis?: No VTE Prior VTE?: No VTE Risk Level:: Medical - low VTE Device Contraindication: N/A - Device Ordered VTE Drug Contraindication: Treatment Not Indicated Procedures Date of Service Date of Service: 02/20/24
--- NOTE | 2024-02-18 13:33 | PC.NURSE ---
pt verbalizes 9/10 pain despite previous interventions. provider notified/aware. medication administered per provider order. effectiveness pending. otherwise, vs remain stable/up to date. nsr on the ophthalmologist retina specialist. no sob/wob noted. respirations remain even/unlabored. pending admission at this time. plan of care ongoing. call fong placed within reach.
--- NOTE | 2024-02-18 13:41 | PHA.MEDREC ---
Pharmacy Consult ? Medication Reconciliation Pharmacy has completed the medication reconciliation. Spoke with pt at bedside to confirm meds. Pt confirmed she should be on Wellbutrin and Amlodipine, but has not taken them in 3 months. Called her pharmacy to confirm medications, as claims were not since September 2023, and they confirmed she has not filled any medications since then also.
[2024-02-18] MEDS: Lactated Ringers 1,000 ML 100 ML IVCONT (13:48)
[2024-02-18] MEDS: Piperacillin Sodium/Tazobactam 3.375 GM in 0.9 % Sodium Chloride 50 ML IV (13:48)
[2024-02-18] MEDS: Acetaminophen 325 MG TABLET 650 MG PO (17:42)
--- NOTE | 2024-02-18 17:48 | PC.NURSE ---
Addendum entered by Mary Hernandez RN 02/18/24 19:08: Zosyn dose increased to 4.5GM per MD. Addendum entered by Mary Hernandez RN 02/18/24 18:45: MD Manzo made aware pt temp recheck 103.0. Ice packs in bilateral groin and axilla applied. No new orders at this time. Original Note: MD Manzo made aware pt has oral temperature of 101.8, nausea & vomiting. PRN Tylenol and Zofran given per JUN, pending effectiveness.
[2024-02-18] MEDS: Piperacillin Sodium/Tazobactam 4.5 GM in 0.9 % Sodium Chloride 100 ML IV (20:01)
[2024-02-19] VITALS (10 sets, daily range): BP systolic 113–138; BP diastolic 54–67; PULSE 102–113; RESP 16–20; TEMP 37.2–39.2; O2SAT 95–96
[2024-02-19] MEDS: ondansetron HCL 4 MG/2 ML VIAL IVPUSH ×3 (01:09→19:48)
[2024-02-19] MEDS: Piperacillin Sodium/Tazobactam 4.5 GM in 0.9 % Sodium Chloride 100 ML IV ×4 (01:30→19:51)
[2024-02-19] MEDS: Lactated Ringers 1,000 ML 100 ML IVCONT ×3 (01:30→22:50)
[2024-02-19] MEDS: Morphine Sulfate 4 MG/ML CARTRIDGE IVPUSH ×4 (02:22→18:33)
[2024-02-19 07:57] LABS: Hematocrit 32.8 % (37.0-47.0); Hemoglobin 10.7 g/dl (12.0-16.0); Mean Corpuscular HGB Conc 32.6 g/dl (31.0-35.0); Mean Corpuscular Hemoglobin 22.6 pg (27.0-33.0); Mean Corpuscular Volume 69.2 fL (80.0-98.0); Mean Platelet Volume 10.1 fL (9.4-12.3); Platelet Count 258 X10*3/uL (160-400); Red Blood Count 4.74 X10*6/uL (4.20-5.50); Red Cell Distribution Width 16.2 % (11.0-16.0); White Blood Count 9.6 X10*3/uL (4.8-10.8)
[2024-02-19] MEDS: buPROPion HCl XL 150 MG TAB.ER.24H PO (08:21)
[2024-02-19] MEDS: Acetaminophen 325 MG TABLET 650 MG PO ×3 (08:21→19:49)
[2024-02-19] MEDS: 0.9 % Sodium Chloride Flush 3 ML SYRINGE IVFLUSH ×2 (08:22→19:49)
[2024-02-19] MEDS: amLODIPine Besylate 5 MG TABLET PO (08:25)
[2024-02-19 08:28] LABS: Anion Gap 11 (12-20); Blood Urea Nitrogen 5 mg/dL (9-16); Calcium 8.2 mg/dL (8.4-10.2); Carbon Dioxide 22 mmol/L (22-29); Chloride 105 mmol/L (96-108); Creatinine Clr Calc Pharmacy 127.8; Estimated Glomerular Filt Rate > 60; Glucose Random 114 mg/dL (60-115); Potassium 3.4 mmol/L (3.3-5.1); Sodium 135 mmol/L (135-145)
--- NOTE | 2024-02-19 09:31 | PM.PNGS ---
Subjective Subjective Date of Service: 02/20/24 Interval history: Less abdominal pain although still present especially when she moves around No fever overnight but had another spike this morning Denies nausea or vomiting Complains of headache Physical Exam Vital Signs: Vital Signs: Last Vital Signs Temp 102.6 F H 02/19/24 08:00 Pulse 113 H 02/19/24 08:00 Resp 16 02/19/24 08:00 BP 119/59 L 02/19/24 08:00 Pulse Ox 96 02/19/24 08:00 O2 Del Method Room Air 02/19/24 08:00 BMI result Body Mass Index 51.1 Const: Other: Complains of headache General: comfortable and no acute distress Nutritional Appearance: obese morbidly obese Resp: Effort & Inspection: normal respiratory effort Cardio: Rate: tachycardic GI: Palpation (GI): Soft to palpation, not firm, Tenderness to palpation present (GI) (Some tenderness of the left lower quadrant) and no guarding Objective Data Active Medications Acetaminophen (Acetaminophen 325 Mg Tablet) 650 mg PO Q6H PRN PRN Reason: Pain, Mild (Pain Scale 1-3), fever or headache Last Admin: 02/19/24 08:21 Dose: 650 mg Documented By: ADONIS Amlodipine Besylate (Amlodipine Besylate 5 Mg Tablet) 5 mg PO DAILY [facility]; Protocol Last Admin: 02/19/24 08:25 Dose: 5 mg Documented By: ADONIS Bupropion HCl (Bupropion Hcl Xl 150 Mg Tab.Er.24h) 150 mg PO DAILY [facility] Last Admin: 02/19/24 08:21 Dose: 150 mg Documented By: ADONIS Calcium Carbonate (Calcium Carbonate 750 Mg Tab.Chew) 750 mg PO Q4H PRN PRN Reason: Heartburn Lactated Ringer's (Lr) 1,000 mls @ 100 mls/hr IVCONT .Q10H [facility] Last Infusion: 02/19/24 02:02 Dose: 100 mls/hr Documented By: KARLA Piperacillin Sod/Tazobactam (Sod 4.5 gm/ Sodium Chloride) 100 mls @ 200 mls/hr IV Q6H [facility] Last Admin: 02/19/24 08:22 Dose: 200 mls/hr Documented By: ADONIS Ketorolac Tromethamine (Ketorolac Tromethamine 30 Mg/Ml Vial) 30 mg IVPUSH Q6H PRN PRN Reason: Pain, Severe (Pain Scale 7-10) Last Admin: 02/18/24 19:59 Dose: 30 mg Documented By: KARLA Melatonin (Melatonin 3 Mg Tablet) 6 mg PO BEDTIME PRN PRN Reason: Insomnia Morphine Sulfate (Morphine Sulfate 4 Mg/Ml Cartridge) 4 mg IVPUSH Q3H PRN; Protocol PRN Reason: Pain, Severe (Pain Scale 7-10) Last Admin: 02/19/24 06:36 Dose: 4 mg Documented By: KARLA Ondansetron HCl (Ondansetron Hcl 4 Mg/2 Ml Vial) 4 mg IVPUSH Q6H PRN PRN Reason: Nausea and Vomiting Last Admin: 02/19/24 01:09 Dose: 4 mg Documented By: KARLA Sodium Chloride (0.9 % Sodium Chloride Flush 3 Ml Syringe) [facility] Last Admin: 02/19/24 08:22 Dose: 3 ml Documented By: ADONIS Labs 02/19/24 07:50 02/19/24 07:50 Labs: Laboratory Results - last 24 hr 02/18/24 02/18/24 02/19/24 09:12 10:12 07:50 MCV 69.2 L MCH 22.6 L MCHC 32.6 RDW 16.2 H Plt Count 258 D MPV 10.1 Absolute Nucleated RBC 0.000 Nucleated RBC % (auto) 0.0 Anion Gap 11 L Estim Creat Clear Calc 127.8 Estimated GFR > 60 Random Glucose 114 Lactic Acid 1.4 Calcium 8.2 L D COVID-19 ([place]) Negative COVID-19 Clin Com See Note Microbiology Microbiology Results: Microbiology 02/18/24 10:12 Blood Culture - Preliminary Blood - Venous Prelim: GNR Gram Stain only Procedures Date of Service Date of Service: 02/20/24 Progress Note: A&P Assessment and plan (1) Diverticulitis: Status: Acute Assessment and Plan: Abdominal pain and tenderness less No fever overnight but again another fever spike this morning Check blood cultures and lactate WBC now normal Clinically looks well We will keep on bowel rest for now IV Zosyn Rest of labs okay Encouraged to get out of bed and ambulate Review of labs in the ED shows she has UTI - we will ask hospitalist to see (2) Urinary tract infection: Status: Acute Assessment and Plan: On IV antibiotics Has had fevers so I will consult the hospitalist service Time Spent With Patient Time: Total time managing care of this patient today ____ minutes. Quality Stroke Does the patient have a stroke diagnosis?: No VTE Prior VTE?: No VTE Risk Level:: Medical - low VTE Device Contraindication: N/A - Device Ordered VTE Drug Contraindication: Treatment Not Indicated
[2024-02-19 09:53] LABS: Lactic Acid 0.7 mmol/L (0.5-2.0)
--- NOTE | 2024-02-19 10:45 | PM.IMCN ---
History of Present Illness Data of Consult Service Date: 02/19/24 Primary Care Provider: Rhonda Mejia NP HPI Reason for consult: fever 28F PMH htn, morbid obesity, mood disorder, admitted to general surgery for acute sigmoid diverticulitis. Patient reports left lower quadrant and lower abdominal pain for about [address] scan consistent with sigmoid diverticulitis. Also had positive UA, and Gram-negative rods in 1/2 blood cultures. Review of Systems Review of Systems: Yes all other systems are reviewed and are negative [facility] Medical History (Updated 02/19/24 @ 10:02 by Wolfgang Manzo MD) Urinary tract infection HTN (hypertension) with goal to be determined Morbid obesity No pertinent past medical history Surgical History (Updated 02/18/24 @ 18:26 by Wolfgang Manzo MD) History of laparoscopic cholecystectomy Social History Household Members: Family and Children Housing: Apartment Do you presently have visiting nurse or other home services: No Unable to assess alcohol history related to: Unable to respond Patient Tobacco Use Status: Never used Tobacco Tobacco use type: Cigarette Cigarette Packs Per Day: 0.5 Cigarettes Per Day: 10.0 Smoked in Last 30 Days: Yes e-Cigarette/Vaping Use: Never Used Patient Interested in Nicotine Replacement: No Use of substances other than those prescribed or required for medical reasons: Yes Substance Use Type: Marijuana Substance Use Frequency: Daily Last Used Substance: Days (ago) Currently Displaying Signs/Symptoms of Drug Intoxication Withdrawal: No Any prior treatment program specific to substance use: No Have you been hit, kicked, punched, or otherwise hurt by someone within the past year? If so, by whom?: No Do you feel safe in your current relationship?: No Current Relationship Is there a partner from a previous relationship who is making you feel unsafe now?: No Are you made to feel afraid or neglected: No Advance Directives: No Advance Directives Information Provided: No Advance Directives on File: No Recently lost weight without trying: No Eating poorly because of decreased appetite: No Nutrition Risks: No Nutritional Risk Patient : No : No Poor oral hygiene: No Meds Allergies Allergy/AdvReac Type Severity Reaction Status Date / Time No Known Allergies Allergy Verified 02/18/24 08:26 [No Known Allergies*] Active Medications: Current Medications Acetaminophen (Acetaminophen 325 Mg Tablet) 650 mg PO Q6H PRN PRN Reason: Pain, Mild (Pain Scale 1-3), fever or headache Last Admin: 02/19/24 08:21 Dose: 650 mg Amlodipine Besylate (Amlodipine Besylate 5 Mg Tablet) 5 mg PO DAILY [facility]; Protocol Last Admin: 02/19/24 08:25 Dose: 5 mg Bupropion HCl (Bupropion Hcl Xl 150 Mg Tab.Er.24h) 150 mg PO DAILY [facility] Last Admin: 02/19/24 08:21 Dose: 150 mg Calcium Carbonate (Calcium Carbonate 750 Mg Tab.Chew) 750 mg PO Q4H PRN PRN Reason: Heartburn Lactated Ringer's (Lr) 1,000 mls @ 100 mls/hr IVCONT .Q10H [facility] Last Infusion: 02/19/24 02:02 Dose: 100 mls/hr Piperacillin Sod/Tazobactam (Sod 4.5 gm/ Sodium Chloride) 100 mls @ 200 mls/hr IV Q6H [facility] Last Infusion: 02/19/24 09:47 Dose: Infused Ketorolac Tromethamine (Ketorolac Tromethamine 30 Mg/Ml Vial) 30 mg IVPUSH Q6H PRN PRN Reason: Pain, Severe (Pain Scale 7-10) Last Admin: 02/18/24 19:59 Dose: 30 mg Melatonin (Melatonin 3 Mg Tablet) 6 mg PO BEDTIME PRN PRN Reason: Insomnia Morphine Sulfate (Morphine Sulfate 4 Mg/Ml Cartridge) 4 mg IVPUSH Q3H PRN; Protocol PRN Reason: Pain, Severe (Pain Scale 7-10) Last Admin: 02/19/24 06:36 Dose: 4 mg Ondansetron HCl (Ondansetron Hcl 4 Mg/2 Ml Vial) 4 mg IVPUSH Q6H PRN PRN Reason: Nausea and Vomiting Last Admin: 02/19/24 01:09 Dose: 4 mg Sodium Chloride (0.9 % Sodium Chloride Flush 3 Ml Syringe) [address] [facility] Last Admin: 02/19/24 08:22 Dose: 3 ml Home Medications ?Medication ?Instructions ?Recorded ?Confirmed ?Last Taken ?Type amlodipine 5 mg tablet 5 mg PO DAILY 02/18/24 02/18/24 Unknown History bupropion HCl 150 mg 24 hr tablet, 150 mg PO DAILY 02/18/24 02/18/24 Unknown History extended release Physical Exam Vital Signs and Narrative: Vital Signs: Last Vital Signs Temp 100.8 F H 02/19/24 09:34 Pulse 113 H 02/19/24 08:00 Resp 16 02/19/24 08:00 BP 119/59 L 02/19/24 08:00 Pulse Ox 96 02/19/24 08:00 O2 Del Method Room Air 02/19/24 08:00 BMI result Body Mass Index 51.1 General: AO X 3, no acute distress Resp: CTA bilateral, no accessory muscles used CVS: S1,S2,RRR GI: soft, tender, non distended Neuro: motor grossly intact, alert Psych: appropriate affect, appropriate insight Results Labs 02/19/24 07:50 02/19/24 07:50 Labs: Laboratory Results - last 24 hr 02/19/24 02/19/24 07:50 09:27 MCV 69.2 L MCH 22.6 L MCHC 32.6 RDW 16.2 H Plt Count 258 D MPV 10.1 Absolute Nucleated RBC 0.000 Nucleated RBC % (auto) 0.0 Anion Gap 11 L Estim Creat Clear Calc 127.8 Estimated GFR > 60 Random Glucose 114 Lactic Acid 0.7 Calcium 8.2 L D Imaging Radiologist's Impressions: Impressions Abdomen/Pelvis CT 02/18/24 09:56 IMPRESSION: 1. Acute left lower quadrant sigmoid diverticulitis. No evidence of perforation or abscess formation. 2. Hepatic steatosis. No hepatic parenchymal lesion or biliary ductal dilatation. Fleischner guidelines were followed. Electronically signed by: Sumanth Oseguera MD 02/18/2024 11:02 AM EDT Assessment and Plan (1) HTN (hypertension) with goal to be determined: Status: Acute Plan 28F PMH htn, morbid obesity, mood disorder, admitted to general surgery for acute sigmoid diverticulitis Sepsis(not severe) due to acute sigmoid diverticulitis and urinary tract infection complicated by Gram-negative rodrigo bacteremia Continue IV Zosyn Follow-up cultures and adjust antibiotics as needed Hypertension Continue amlodipine Mood disorder Continue bupropion Morbid obesity Weight loss is recommended
--- NOTE | 2024-02-19 11:28 | MHC.CM.PN ---
Patient lives in an apartment w/ sister and children. Functionally independent. Denies use of DME/services. PCP Rhonda Mejia [employer] No HCP. CM provided education and offered assistance. Patient declined. DP: Goal is home self care. Grandmother to transport. CM will continue to follow.
--- NOTE | 2024-02-19 17:16 | PM.EVENT ---
Event Note Date of Service: 02/19/24 Event Note: Seen on afternoon rounds Had another fever spike earlier this afternoon Looks comfortable Abdomen is soft and benign Non septic looking Continue IV antibiotics Blood cultures showing Gram-negative rods in 1/2 bottles We will stay with Zosyn - discussed with hospitalist service Time Spent With Patient Time: Total time managing care of this patient today ____ minutes.
[2024-02-19] MEDS: Ketorolac Tromethamine 30 MG/ML VIAL IVPUSH (19:55)
[2024-02-20] MEDS: Piperacillin Sodium/Tazobactam 4.5 GM in 0.9 % Sodium Chloride 100 ML IV ×4 (01:06→19:42)
[2024-02-20 02:23] VITALS: BP 104/52; PULSE 76; RESP 18; TEMP 36.4; O2SAT 98
[2024-02-20] MEDS: ondansetron HCL 4 MG/2 ML VIAL IVPUSH ×3 (05:23→22:24)
[2024-02-20 07:53] VITALS: BP 140/88; PULSE 98; RESP 18; TEMP 37; O2SAT 97
[2024-02-20] MEDS: amLODIPine Besylate 5 MG TABLET PO (08:04)
[2024-02-20] MEDS: Lactated Ringers 1,000 ML 100 ML IVCONT (08:05)
[2024-02-20] MEDS: buPROPion HCl XL 150 MG TAB.ER.24H PO (08:05)
[2024-02-20] MEDS: Acetaminophen 325 MG TABLET 650 MG PO ×3 (08:11→22:41)
--- NOTE | 2024-02-20 09:02 | PM.PNGS ---
Subjective Subjective Date of Service: 02/20/24 Interval history: feels much better much less pain says she slept well no fever overnight Physical Exam Vital Signs: Vital Signs: Last Vital Signs Temp 98.6 F 02/20/24 07:53 Pulse 98 02/20/24 07:53 Resp 18 02/20/24 07:53 BP 140/88 H 02/20/24 07:53 Pulse Ox 97 02/20/24 07:53 O2 Del Method Room Air 02/20/24 07:53 BMI result Body Mass Index 51.1 Const: General: comfortable and no acute distress Nutritional Appearance: obese Resp: Effort & Inspection: normal respiratory effort Cardio: Rate: regular rate GI: Other: mild tenderness left lower quadrant Palpation (GI): Soft to palpation, not firm and no guarding Objective Data Active Medications Acetaminophen (Acetaminophen 325 Mg Tablet) 650 mg PO Q6H PRN PRN Reason: Pain, Mild (Pain Scale 1-3), fever or headache Last Admin: 02/20/24 08:11 Dose: 650 mg Documented By: ADONIS Amlodipine Besylate (Amlodipine Besylate 5 Mg Tablet) 5 mg PO DAILY [facility]; Protocol Last Admin: 02/20/24 08:04 Dose: 5 mg Documented By: ADONIS Bupropion HCl (Bupropion Hcl Xl 150 Mg Tab.Er.24h) 150 mg PO DAILY [facility] Last Admin: 02/20/24 08:05 Dose: 150 mg Documented By: ADONIS Calcium Carbonate (Calcium Carbonate 750 Mg Tab.Chew) 750 mg PO Q4H PRN PRN Reason: Heartburn Lactated Ringer's (Lr) 1,000 mls @ 100 mls/hr IVCONT .Q10H [facility] Last Admin: 02/20/24 08:05 Dose: 100 mls/hr Documented By: ADONIS Piperacillin Sod/Tazobactam (Sod 4.5 gm/ Sodium Chloride) 100 mls @ 200 mls/hr IV Q6H [facility] Last Admin: 02/20/24 08:04 Dose: 200 mls/hr Documented By: ADONIS Ketorolac Tromethamine (Ketorolac Tromethamine 30 Mg/Ml Vial) 30 mg IVPUSH Q6H PRN PRN Reason: Pain, Severe (Pain Scale 7-10) Last Admin: 02/19/24 19:55 Dose: 30 mg Documented By: TRACY Melatonin (Melatonin 3 Mg Tablet) 6 mg PO BEDTIME PRN PRN Reason: Insomnia Morphine Sulfate (Morphine Sulfate 4 Mg/Ml Cartridge) 4 mg IVPUSH Q3H PRN; Protocol PRN Reason: Pain, Severe (Pain Scale 7-10) Last Admin: 02/19/24 18:33 Dose: 4 mg Documented By: ADONIS Ondansetron HCl (Ondansetron Hcl 4 Mg/2 Ml Vial) 4 mg IVPUSH Q6H PRN PRN Reason: Nausea and Vomiting Last Admin: 02/20/24 05:23 Dose: 4 mg Documented By: TRACY Sodium Chloride (0.9 % Sodium Chloride Flush 3 Ml Syringe) 3 ml IVFLUSH [facility] Last Admin: 02/19/24 19:49 Dose: 3 ml Documented By: TRACY Labs 02/19/24 07:50 02/19/24 07:50 Labs: Laboratory Results - last 24 hr 02/19/24 09:27 Lactic Acid 0.7 Microbiology Microbiology Results: Microbiology 02/18/24 10:12 Blood Culture - Preliminary Blood - Venous Gram negative rodrigo 02/18/24 10:12 Blood Culture - Preliminary Blood - Venous No growth after 24 hours. 02/18/24 Unknown Urine Culture - Final Urine clean catch - Clean Catch Midstream No growth. Procedures Date of Service Date of Service: 02/20/24 Progress Note: A&P Assessment and plan (1) Diverticulitis: Status: Acute Assessment and Plan: abdl pain much improved looks well abdl exam soft, benign temperature pattern much improved ambulate continue IV abx ok to try clear liquids (2) Urinary tract infection: Status: Acute Assessment and Plan: temperature pattern much improved on IV abx Time Spent With Patient Time: Total time managing care of this patient today ____ minutes. Quality Stroke Does the patient have a stroke diagnosis?: No VTE Prior VTE?: No VTE Risk Level:: Medical - low VTE Device Contraindication: N/A - Device Ordered VTE Drug Contraindication: Treatment Not Indicated
[2024-02-20 14:37] VITALS: TEMP 36.8
[2024-02-20 16:00] VITALS: BP 129/81; PULSE 88; RESP 16; TEMP 36.9; O2SAT 97
[2024-02-20] MEDS: Lactated Ringers 1,000 ML 80 ML IVCONT (16:00)
[2024-02-20] MEDS: Ketorolac Tromethamine 30 MG/ML VIAL IVPUSH ×2 (16:35→22:42)
[2024-02-20 20:00] VITALS: BP 131/84; PULSE 82; RESP 18; TEMP 36.3; O2SAT 96
[2024-02-20] MEDS: Calcium Carbonate 750 MG TAB.CHEW PO (22:40)
[2024-02-20] MEDS: Melatonin 3 MG TABLET 6 MG PO (22:41)
[2024-02-21] MEDS: 0.9 % Sodium Chloride Flush 3 ML SYRINGE IVFLUSH ×3 (01:00→14:36)
[2024-02-21] MEDS: Piperacillin Sodium/Tazobactam 4.5 GM in 0.9 % Sodium Chloride 100 ML IV ×3 (02:13→14:36)
[2024-02-21] MEDS: Lactated Ringers 1,000 ML 80 ML IVCONT (03:56)
[2024-02-21 04:00] VITALS: BP 142/92; PULSE 107; RESP 18; TEMP 36.1; O2SAT 97
[2024-02-21] MEDS: ondansetron HCL 4 MG/2 ML VIAL IVPUSH (06:37)
--- NOTE | 2024-02-21 07:45 | PM.PNGS ---
Subjective Subjective Date of Service: 02/21/24 <Missy Bragg PA-C - Last Filed: 02/21/24 07:49> 02/21/24 <Wolfgang Manzo MD - Last Filed: 02/21/24 10:30> Interval history: Feels improved. Currently denies pain this morning. Tolerating clear liquids. Would like to eat solid food. <Missy Bragg PA-C - Last Filed: 02/21/24 07:49> Physical Exam Vital Signs: Vital Signs: Last Vital Signs Temp 97.0 F 02/21/24 04:00 Pulse 107 H 02/21/24 04:00 Resp 18 02/21/24 04:00 BP 142/92 H 02/21/24 04:00 Pulse Ox 97 02/21/24 04:00 O2 Del Method Room Air 02/21/24 04:00 BMI result Body Mass Index 51.1 <Missy Bragg PA-C - Last Filed: 02/21/24 07:49> Const: General: comfortable, no acute distress and alert <Missy Bragg PA-C - Last Filed: 02/21/24 07:49> Orientation/consciousness: patient oriented x3 <KIAH Fernández Last Filed: 02/21/24 07:49> Resp: Effort & Inspection: normal respiratory effort <KIAH Fernández Last Filed: 02/21/24 07:49> GI: Other: corpulent abdomen mild left sided tenderness, moderate LLQ <Missy Bragg PA-C - Last Filed: 02/21/24 07:49> Palpation (GI): Soft to palpation, Tenderness to palpation present (GI) with no rebound tenderness and no guarding <Missy Bragg PA-C - Last Filed: 02/21/24 07:49> Skin: General skin exam: no rashes or lesions noted <KIAH Fernández Last Filed: 02/21/24 07:49> Neuro: General: patient oriented x3 and moves all extremities <KIAH Fernández Last Filed: 02/21/24 07:49> Objective Data Active Medications Acetaminophen (Acetaminophen 325 Mg Tablet) 650 mg PO Q6H PRN PRN Reason: Pain, Mild (Pain Scale 1-3), fever or headache Last Admin: 02/20/24 22:41 Dose: 650 mg Documented By: KARLA Amlodipine Besylate (Amlodipine Besylate 5 Mg Tablet) 5 mg PO DAILY [facility]; Protocol Last Admin: 02/20/24 08:04 Dose: 5 mg Documented By: ADONIS Bupropion HCl (Bupropion Hcl Xl 150 Mg Tab.Er.24h) 150 mg PO DAILY [facility] Last Admin: 02/20/24 08:05 Dose: 150 mg Documented By: ADONIS Calcium Carbonate (Calcium Carbonate 750 Mg Tab.Chew) 750 mg PO Q4H PRN PRN Reason: Heartburn Last Admin: 02/20/24 22:40 Dose: 750 mg Documented By: KARLA Piperacillin Sod/Tazobactam (Sod 4.5 gm/ Sodium Chloride) 100 mls @ 200 mls/hr IV Q6H [facility] Last Infusion: 02/21/24 02:43 Dose: Infused Documented By: KARLA Lactated Ringer's (Lr) 1,000 mls @ 80 mls/hr IVCONT .[id number] [facility] Last Admin: 02/21/24 03:56 Dose: 80 mls/hr Documented By: KARLA Ketorolac Tromethamine (Ketorolac Tromethamine 30 Mg/Ml Vial) 30 mg IVPUSH Q6H PRN PRN Reason: Pain, Severe (Pain Scale 7-10) Last Admin: 02/20/24 22:42 Dose: 30 mg Documented By: KARLA Melatonin (Melatonin 3 Mg Tablet) 6 mg PO BEDTIME PRN PRN Reason: Insomnia Last Admin: 02/20/24 22:41 Dose: 6 mg Documented By: KARLA Morphine Sulfate (Morphine Sulfate 4 Mg/Ml Cartridge) 3 mg IVPUSH Q3H PRN; Protocol PRN Reason: Pain, Severe (Pain Scale 7-10) Ondansetron HCl (Ondansetron Hcl 4 Mg/2 Ml Vial) 4 mg IVPUSH Q6H PRN PRN Reason: Nausea and Vomiting Last Admin: 02/21/24 06:37 Dose: 4 mg Documented By: KARLA Sodium Chloride (0.9 % Sodium Chloride Flush 3 Ml Syringe) 3 ml IVFSH QSHIFT [facility] Last Admin: 02/21/24 01:00 Dose: 3 ml Documented By: KARLA <Missy Bragg PA-C - Last Filed: 02/21/24 07:49> Labs CBC & Chem 7: 02/19/24 07:50 02/19/24 07:50 <Missy Bragg PA-C - Last Filed: 02/21/24 07:49> Microbiology Microbiology Results: Microbiology 02/18/24 10:12 Blood Culture - Preliminary Blood - Venous No growth after 48 hours. 02/19/24 09:27 Blood Culture - Preliminary Blood - Venous No growth after 24 hours. 02/19/24 09:27 Blood Culture - Preliminary Blood - Venous No growth after 24 hours. 02/18/24 10:12 Blood Culture - Preliminary Blood - Venous Gram negative rodrigo <Missy Bragg PA-C - Last Filed: 02/21/24 07:49> Procedures Date of Service Date of Service: 02/21/24 <Missy Bragg PA-C - Last Filed: 02/21/24 07:49> 02/21/24 <Wolfgang Manzo MD - Last Filed: 02/21/24 10:30> Progress Note: A&P Assessment and plan (1) Diverticulitis: Status: Acute <Missy Bragg PA-C - Last Filed: 02/21/24 07:49> Assessment and Plan: Continues to feel better Abdomen soft and benign Nontender currently Has been afebrile She is hungry and wants to eat Advance diet today Re-evaluate later on - she says her daughter has a with a democrat tomorrow and she wants to go home today <Wolfgang Manzo MD - Last Filed: 02/21/24 10:30> Assessment and Plan: Improved, tolerating clears. VS- no fevers >24h, intermittently tachycardic. Normal HR on exam this AM. Abd overall benign, some tenderness, no peritoneal signs. Will advance to solid diet. If tolerating home possibly later today or tomorrow. patient comfortable with plan. Had BM yesterday. <iMssy Bragg PA-C - Last Filed: 02/21/24 07:49> Time Spent With Patient Time: Total time managing care of this patient today ____ minutes. <Missy Bragg PA-C - Last Filed: 02/21/24 07:49> Quality Stroke Does the patient have a stroke diagnosis?: No <Missy Bragg PA-C - Last Filed: 02/21/24 07:49> VTE Prior VTE?: No <Missy Bragg PA-C - Last Filed: 02/21/24 07:49> VTE Risk Level:: Medical - low <Missy Bragg PA-C - Last Filed: 02/21/24 07:49> VTE Device Contraindication: N/A - Device Ordered <Missy Bragg PA-C - Last Filed: 02/21/24 07:49> VTE Drug Contraindication: Treatment Not Indicated <Missy Bragg PA-C - Last Filed: 02/21/24 07:49>
[2024-02-21 08:09] VITALS: BP 134/75; PULSE 69; RESP 18; TEMP 36.5; O2SAT 97
[2024-02-21] MEDS: buPROPion HCl XL 150 MG TAB.ER.24H PO (08:38)
[2024-02-21] MEDS: amLODIPine Besylate 5 MG TABLET PO (08:38)
[2024-02-21] MEDS: Calcium Carbonate 750 MG TAB.CHEW PO (11:14)
--- NOTE | 2024-02-21 12:38 | PM.EVENT ---
Event Note Date of Service: 02/21/24 Event Note: tolerating diet denies abdl pain feels well overall has remained afberile abd soft, notnender she wants to go home - she has a bday constitution party for her daughter tomorrow dc home on Augmentin advised of benefits of weight loss - she wants to be referred to Weight Management she understands risks of recurrence dw above with Hospitalist Time Spent With Patient Time: Total time managing care of this patient today ____ minutes.
--- NOTE | 2024-02-21 13:12 | PM.DS ---
DS: Providers Provider Date of Service: 02/21/24 Date of admission: 02/18/24 13:25 Primary care physician: Rhonda Mejia NP Attending physician on admission: Wolfgang Manzo Consults: 02/19/24 10:01 Consult to Hospitalist Routine Comment: Consulting Provider: Hospitalist Reason For Exam: UTI, diverticulitis, with fever Attending physician on discharge: Wolfgang Manzo DS: Diagnosis Discharge Diagnosis (1) Diverticulitis: Status: Acute DS: Summary Hospital Course Hospital Course: HPI AT ADMISSION: Rosalind Rajan is a 28 year old female in the ER for abdominal pain. She says this started about almost 48 hours ago. She describes this as on the left lower quadrant and lower abdomen. She says that seemed to be a little better yesterday but had persisted. She says that this seems to be worse with bowel movements as well. She denies any fever or chills. She denies any previous similar episodes. She denies dysuria. She denies other GI complaints. She has significant morbid obesity. She says she used to be on blood pressure medications but she says she had stopped this on her own. She says that her blood pressure has been stable. CT scan showing inflammatory changes in the sigmoid consistent with acute diverticulitis, no evidence of any collection. There was note of hyper density in the area. HOSPITAL COURSE: She was admitted to the surgical service for further treatment of the acute diverticulitis. She did have a leukocytosis but her exam was otherwise benign. She was start her on IV Zosyn, IVF, bowel rest, serial abdominal exams with colonoscopy down the line to visually examine the area of the sigmoid colon and rule out other pathology. The patient improved symptomatically however spiked fevers. She had a UTI on admission urinalysis with blood cultures showing Gram-negative rods in 1/2 bottles. Hospitalist service was consulted who agreed with IV zosyn for coverage. Her fevers improved. Her diet was slowly advanced to clear liquids and then solids. On the day of discharge, she was tolerating a solid diet without nausea or vomiting, her abdominal pain had resolved. Her abdomen was benign with mild tenderness. Her vitals were stable and she was afebrile <24hs. She felt ready for discharge. She was discharged to home on a PO course of Augmentin and outpatient f/u in [address] Manzo. She was advised of the benefits of weight loss and was referred to Weight Management program. Status at Discharge Functional status at discharge: independent ambulation Overall status at discharge: patient is progressing back to baseline Time Attestation Discharge Coordination Time (in mins): 30 Quality: Safe Use of Opioids Does Pt have an Active Cancer Diagnosis on the Problem List?: No Quality: Stroke Does the patient have a stroke diagnosis?: No Physical Exam Vital Signs: Vital Signs: Last Vital Signs Temp 97.7 F 02/21/24 08:09 Pulse 69 02/21/24 08:09 Resp 18 02/21/24 08:09 BP 134/75 02/21/24 08:09 Pulse Ox 97 02/21/24 08:09 O2 Del Method Room Air 02/21/24 08:09 BMI result Body Mass Index 51.1 Const: General: comfortable, no acute distress and alert Orientation/consciousness: patient oriented x3 Resp: Effort & Inspection: normal respiratory effort GI: Inspection: No distended Palpation (GI): Soft to palpation, Tenderness to palpation present (GI) (mild left sided) and no guarding Skin: General skin exam: no rashes or lesions noted Neuro: General: patient oriented x3 and moves all extremities DS: Data Data Completed and Pending Labs on day of discharge: Preliminary micro results at discharge 02/19/24 09:27 Blood Culture - Preliminary Blood - Venous No growth after 48 hours. 02/19/24 09:27 Blood Culture - Preliminary Blood - Venous No growth after 48 hours. 02/18/24 10:12 Blood Culture - Preliminary Blood - Venous No growth after 48 hours. Discharge Plan Discharge Anticipated Discharge Date/Time: 02/21/24 12:40 Patient Disposition: Home, Self-Care Discharge Diagnosis: acute diverticulitis, UTI Referrals: Joshua De La Fuente PA [Physician Tester [employer]] - 1 Week Rhonda Mejia NP [Primary Care Provider] - Discharge Medications: New amoxicillin 875 mg tablet 875 mg PO BID Qty: 20 0RF ondansetron 8 mg tablet,disintegrating 8 mg PO Q8H PRN (Reason: nausea and vomiting) Qty: 20 0RF Continued amlodipine 5 mg tablet 5 mg PO DAILY bupropion HCl 150 mg tablet extended release 24 hr 150 mg PO DAILY Discharge Orders: Discharge Order (Routine); Ordered 02/21/24 Ordered By: Wolfgang Manzo Diet: Low fat, low cholesterol Activity on Discharge: As tolerated Stand Alone Forms: Patient Portal Discharge page, Work/School Release Print Language: Welsh Activity Restrictions/Additional Instructions: Follow up with your primary care physician A referral for the weight management program has been sent on your behalf Returned to the ER if you have high fevers, abdominal pain, vomiting Care Plan Goals: return to baseline Health Concerns: Diverticular disease Morbid obesity Plan of Treatment: Oral antibiotics Referral to weight management Assessment: Much improved Patient Instructions: Diverticulitis (ED), Diverticulitis Diet (ED)
--- NOTE | 2024-02-21 14:09 | MHC.CM.PN ---
PT WILL DC HOME TODAY WITH NO SERVICES VIA FAMILY TRANSPORT
--- NOTE | 2024-03-01 10:29 | P.CDIM_ITS ---
PROVIDER RESPONSE TEXT: To clarify, the appropriate diagnosis supported by the clinical indicators: Sepsis is/was present and is a clinical diagnosis QUERY TEXT: PHYSICIAN'S DOCUMENTATION REQUEST Date of Query: 03/01/2024 08:09 AM EST Patient Name: Rosalind Rajan Admit Date: 02/18/2024 Dear Wolfgang Manzo MD, A review of the medical record indicates additional documentation may be needed. Please review below and update the documentation accordingly. Documentation on progress note dated 02/19/24 included the diagnosis of sepsis. Sepsis is not noted as a diagnosis in the Discharge Summary of 02/21/24 The patient's infectious clinical indicators include: abd pain LLQ WBC 18.7 T 100.8 P 113 Urinalysis shows possible UTI Sepsis(not severe) due to acute sigmoid diverticulitis and urinary tract infection complicated by Gra m-negative rodrigo bacteremia Continue IV Zosyn Follow-up cultures and adjust antibiotics as needed Recognized standard criteria for this condition and other infectious definitions includes: Bacteremia Abnormal laboratory test - does not indicate a clinically ill patient Sepsis Systemic manifestations of infection, with 2 or more SIRS criteria which include: Fever > 100.4?F or hypothermia < 96.8?F Leukocytosis - WBC > 12,000 or leukopenia, WBC < 4,000, or > 10% bands Tachycardia- > 90 beats/minute Tachypnea- RR > 20 breaths/minute or PaCO2 < 32mmHg Source: [employer] Manual 2013 Documentation should include the known or suspected organism, and the underlying infection, such as U TI or pneumonia Severe Sepsis Sepsis with associated acute organ dysfunction, such as renal or respiratory failure Documentation should indicate the association between the sepsis and the organ dysfunction Septic Shock Severe sepsis with associated with circulatory failure, evidenced by hypotension and hypoperfusion Based on the above information and the recognized standard for sepsis, could you please clarify if th is diagnoses is still accurate and reflective of the patient's condition to ensure quality of the medical record. Sepsis is/was present and is a clinical diagnosis After study, Sepsis has been ruled out Other (explain) Clinically unable to determine (explain) Thank you, Janice Falcon RN Use of terms such as suspected, likely, concern for, or probable (associated with a specific diagnosi s that is being evaluated, monitored, or treated as if it exists) are acceptable and can be coded in the inpatient se tting, when documented at the time of discharge. Please use your independent medical judgment in providing your response. THIS QUERY IS PART OF THE PERMANENT MEDICAL RECORD
== END 2024-02-21 15:23 | disposition home or self-care (01) | DRG 720 ==
LOC: HO.ED 11:25 → HO.EDOVER 13:35 → HO.S3 14:45
PROVIDERS: Physician Assistant; Admitting Provider Surgery; Emergency Provider Emergency Medicine Emergency Medical Services; PCP Nurse Practitioner Family; Visit Provider Surgery
DX: A41.9 Sepsis, unspecified organism (principal); Z68.43 Body mass index [BMI] 50.0-59.9, adult; E66.01 Morbid (severe) obesity due to excess calories; K57.32 Diverticulitis of large intestine without perforation or abscess without bleeding; N39.0 Urinary tract infection, site not specified; F17.210 Nicotine dependence, cigarettes, uncomplicated; Z71.6 Tobacco abuse counseling; I10 Essential (primary) hypertension; F39 Unspecified mood [affective] disorder; Z71.3 Dietary counseling and surveillance; Z20.822 Contact with and (suspected) exposure to COVID-19; Z79.899 Other long term (current) drug therapy
CPT/HCPCS: 36415; 74177; 80048; 80053; 81001; 81025; 83605; 83690; 84702; 85025; 85027; 87040; 87077; 87086; 87186; 87205; 87635; 99285; J0696; J1836; J1885; J2270; J2405; J2543; J7120; Q9967

== ENCOUNTER → 2024-02-18 13:25 | Outpatient (BNV) | payer MEDICAID, SELFPAY | PROVIDERS: Admitting Provider Surgery; Emergency Provider Emergency Medicine Emergency Medical Services; PCP Nurse Practitioner Family; Visit Provider Internal Medicine | DX: A41.9 Sepsis, unspecified organism (principal); I10 Essential (primary) hypertension | CPT/HCPCS: 99223; 99232 ==

== ENCOUNTER → 2024-02-18 13:25 | Outpatient (BNV) | payer MEDICAID, SELFPAY | PROVIDERS: Admitting Provider Surgery; Emergency Provider Emergency Medicine Emergency Medical Services; PCP Nurse Practitioner Family; Visit Provider Surgery | DX: K57.92 Diverticulitis of intestine, part unspecified, without perforation or abscess without bleeding (principal) | CPT/HCPCS: 99222; 99232; 99238; 99499 ==

== ENCOUNTER → 2024-02-24 10:49 | Outpatient (BNVA) | payer MEDICAID, SELFPAY | PROVIDERS: PCP Internal Medicine; Visit Provider Physician Assistant Surgical ==

== ENCOUNTER 2024-03-21 10:39 | Emergency (ER) | payer MEDICAID, SELFPAY ==
--- NOTE | ~2024-03-21 | CT_ITS ---
EXAMINATION: CT ABDOMEN AND PELVIS WITH CONTRAST CLINICAL INFORMATION: Abdominal pain. COMPARISON: None available. TECHNIQUE: Multidetector volumetric images were obtained from the superior aspect of the liver through the pubic symphysis following administration 85 mL of Omnipaque 350 intravenous contrast. Sagittal and coronal reformatted images were obtained on the technologist's workstation. Oral contrast: No This CT examination was performed using dose optimization techniques as appropriate, variously including the following: *Automated exposure control *Adjustment of mA and/or kV according to patient size (this includes techniques or standardized protocols for targeted exams where dose is matched to indication/reason for exam; i.e. extremities or head) *Use of iterative reconstruction technique DLP: 861 mGy-cm FINDINGS: LUNG BASES: The visualized lung bases are unremarkable. LIVER, GALLBLADDER, AND BILIARY TREE: The liver is of heterogeneous diminished attenuation. There is no intrahepatic biliary duct dilatation. There has been a prior cholecystectomy. PANCREAS: Unremarkable. SPLEEN: Unremarkable. ADRENAL GLANDS: Unremarkable. KIDNEYS AND URETERS: The kidneys are normal in size, shape, and attenuation. No hydronephrosis, hydroureter, or calculi seen. No perinephric stranding. BLADDER: Unremarkable. GASTROINTESTINAL TRACT: There are diverticula of the transverse and descending colon with thickening and adjacent infiltrative change along the mid descending colon. The appendix is visualized and is within normal limits. ABDOMINAL WALL: No significant hernia is appreciated. LYMPH NODES: Normal. VASCULAR: Unremarkable. PELVIC VISCERA: Unremarkable. OSSEOUS STRUCTURES: There is mild diffuse thoracolumbar degenerative change. CT/CT abdomen pelvis w IV con IMPRESSION: Findings consistent with acute diverticulitis of the mid descending colon. Fleischner guidelines were followed. Electronically signed by: Lalito Pizarro MD 03/22/2024 12:09 AM [facility]
[2024-03-21 10:46] VITALS: BP 158/89; PULSE 84; RESP 18; TEMP 37; O2SAT 97; BMI 49.1
[2024-03-21 14:39] LABS: MANUAL DIFF FLAG NO
[2024-03-21 14:43] LABS: Basophils Absolute Auto 0.1 X10*3/uL (0.0-0.2); Basophils Percent Auto 0.3 % (0-2); Eosinophils Absolute Auto 0.3 X10*3/uL (0.0-0.4); Eosinophils Percent Auto 1.7 % (0-4); Hematocrit 37.1 % (37.0-47.0); Hemoglobin 11.9 g/dl (12.0-16.0); Imm Gran Abs Auto 0.08 X10*3/uL (0.00-0.03); Imm Gran Pct Auto 0.5 % (0.0-0.4); Lymphocytes Absolute Auto 3.7 X10*3/uL (1.2-4.9); Lymphocytes Percent Auto 23.1 % (20-40); Mean Corpuscular HGB Conc 32.1 g/dl (31.0-35.0); Mean Corpuscular Hemoglobin 22.1 pg (27.0-33.0); Mean Platelet Volume 10.7 fL (9.4-12.3); Monocytes Absolute Auto 0.8 X10*3/uL (0.1-1.2); Neutrophils Absolute Auto 11.2 x10*3/uL (2.0-8.3); Neutrophils Percent Auto 69.4 % (45-73); Platelet Count 385 X10*3/uL (160-400); Red Blood Count 5.38 X10*6/uL (4.20-5.50); Red Cell Distribution Width 16.5 % (11.0-16.0); White Blood Count 16.2 X10*3/uL (4.8-10.8)
[2024-03-21 14:48] LABS: Appearance Urine Clear; Color Urine Yellow; Glucose Urine UA Negative (Negative); Leukocyte Esterase Urine Trace (Negative); Nitrite Urine Negative (Negative); PH 5.5 (5.0-9.0); Specific Gravity - Urine 1.025 (1.005-1.025); UMIC TRIGGER UACC YES; Urine Blood Negative (Negative); Urine Ketones Trace mg/dL (Negative); Urine Protein Negative (Neg-Trace)
[2024-03-21 14:55] LABS: Bacteria Urine None Seen (None Seen); Hyaline Casts Urine 0-2 /LPF (0-2); RBC Urine 0-2 /HPF (0-2); WBC Urine 0-5 /HPF (0-5)
[2024-03-21 15:01] LABS: Alanine Aminotransferase 19 U/L (0-31); Albumin Level 4.1 g/dL (3.5-5.0); Alkaline Phosphatase 76 U/L (39-117); Anion Gap 13 (12-20); Aspartate Amino Transferase 18 U/L (5-31); Bilirubin Total 0.1 mg/dL (0.0-1.0); Blood Urea Nitrogen 8 mg/dL (9-16); Calcium 9.4 mg/dL (8.4-10.2); Carbon Dioxide 23 mmol/L (22-29); Chloride 106 mmol/L (96-108); Creatinine Clr Calc Pharmacy 127.9; Estimated Glomerular Filt Rate > 60; Glucose Random 102 mg/dL (60-115); Potassium 3.6 mmol/L (3.3-5.1); Sodium 138 mmol/L (135-145); Total Protein 7.6 g/dL (6.5-8.0)
[2024-03-21 15:04] LABS: HCG Quantitative < 2 mIU/mL
[2024-03-21 16:07] VITALS: BP 126/84; PULSE 101; RESP 20; TEMP 37; O2SAT 100
[2024-03-21 20:00] VITALS: BP 135/76; PULSE 91; RESP 18; TEMP 36.4; O2SAT 98
--- NOTE | 2024-03-21 20:18 | PC.NURSE ---
vomited 100ml bile tinged emisis.
--- NOTE | 2024-03-21 21:09 | ED.ABDPAIN ---
HPI - Abdominal Pain General Chief Complaint: Abdominal Pain Stated Complaint: Abd pain Time Seen by Provider: 03/21/24 21:04 Source: patient and old records reviewed Mode of arrival: ambulatory Limitations: no limitations History of Present Illness ED Provider: DA LI narrative: 28 yo female with PMH of lap hany and admitted here 02/17-02/20 for diverticulities and 1/2 GNR in blood - she was discharged on Augmentin and due to life stress did not take any antibiotcs as instructed. She noted pain came back Wednesday then much worse yesterday with n/v loose stools and some chills. She is worried she has diverticulitis again. Pain is in LLQ. MD elicited complaint: abdominal pain Pertinent past history: diverticulitis Onset (ago): day(s) (3) Pain Consistency: colicky Location: LLQ Severity: moderate Quality: stabbing Radiation: none Migration to: no migration Exacerbating factors: vomiting and movement Relieving factors: nothing Context: history of similar episodes Associated symptoms: nausea, vomiting and chills Related Data Home Medications ?Medication ?Instructions ?Recorded ?Confirmed amlodipine 5 mg tablet 5 mg PO DAILY 02/18/24 02/18/24 bupropion HCl 150 mg 24 hr tablet, 150 mg PO DAILY 02/18/24 02/18/24 extended release Previous Rx's ?Medication ?Instructions ?Recorded amoxicillin 875 mg tablet 875 mg PO BID #20 tabs 02/21/24 ondansetron 8 mg disintegrating 8 mg PO Q8H PRN nausea and 02/21/24 tablet vomiting #20 tabs hydrocodone 5 mg-acetaminophen 325 1 tab PO Q6H PRN pain #10 tabs 03/22/24 mg tablet levofloxacin 750 mg tablet 750 mg PO DAILY #9 tabs 03/22/24 metronidazole 500 mg tablet 500 mg PO BID 10 days #20 tabs 03/22/24 ondansetron 4 mg disintegrating 4 mg PO Q8H PRN nausea and 03/22/24 tablet vomiting #20 tabs Allergies Allergy/AdvReac Type Severity Reaction Status Date / Time No Known Allergies Allergy Verified 03/21/24 10:48 [No Known Allergies*] Review of Systems Review of Systems Constitutional : No Weight loss, No Fever, pos Chills ENT/Mouth : No sore throat, No Rhinorrhea Eyes: No Swelling, No Redness Cardiovascular : No Chest Pain, No SOB, NoEdema Respiratory : No Cough, No Sputum, No Wheezing Gastrointestinal : Positive Nausea, Positive Vomiting, no Diarrhea, positive abdominal Pain, No Hematochezia, No Melena Genitourinary : No Dysuria, No Urinary Frequency, No Hematuria, No Urgency Musculoskeletal : No joint pain, No Myalgias, No Joint Swelling Skin : No Skin Lesions, No rash Neuro : No Weakness, No Numbness, No Dizziness, No Headache All other systems reviewed and are negative. [facility] Past Medical History Attestation statement: The following information was validated with the patient. Source: old records reviewed Medical History COVID-19 Urinary tract infection HTN (hypertension) with goal to be determined Morbid obesity No pertinent past medical history Surgical History Hx of wisdom tooth extraction History of wisdom tooth extraction, class I edentulism History of laparoscopic cholecystectomy Family History Family History (Updated 02/24/24 @ 11:20 by Zohra Burleson CMA) Mother Paroxysmal dystonia Diabetes Father Family history unknown Daughter No problems noted. Social History Social History Household Members: Family and Children Housing: Apartment Do you presently have visiting nurse or other home services: No Alcohol intake: never Patient Tobacco Use Status: Current someday Tobacco user Tobacco use type: Cigarette Cigarette Packs Per Day: 0.5 Cigarettes Per Day: 7 Smoked in Last 30 Days: No e-Cigarette/Vaping Use: Never Used Use of substances other than those prescribed or required for medical reasons: No Substance Use Type: Marijuana Advance Directives: No Advance Directives Information Provided: No Patient : No service: No Physical Exam ED Vital Signs: Vital Signs - 24 hr 03/21/24 10:46 03/21/24 16:07 03/21/24 20:00 Temperature 98.6 F 98.6 F 97.6 F Pulse Rate 84 101 H 91 Respiratory Rate 18 20 18 Blood Pressure 158/89 H 126/84 135/76 Pulse Oximetry 97 100 98 Oxygen Delivery Method Room Air Room Air Room Air 03/21/24 21:26 03/21/24 23:38 Temperature 98.1 F 98.1 F Pulse Rate 81 96 Respiratory Rate 18 18 Blood Pressure 133/80 105/60 Pulse Oximetry 98 97 Oxygen Delivery Method Room Air Room Air BMI result Body Mass Index 49.1 Appearance: Alert. Oriented X3. No acute distress. Eyes: Pupils equal, round and reactive to light. ENT: Pharynx normal. Neck: Normal inspection. Neck supple. CVS: Normal heart rate and rhythm. Pulses normal. Respiratory: No respiratory distress. Breath sounds normal. Abdomen: Soft and moderate LLQ pain no rebound Skin: Skin warm and dry. Normal skin color. Normal skin turgor. Extremities: No lower extremity edema. No calf ttp Neuro: Oriented X 3. No motor deficit. No sensory deficit. Medical Decision Making Medical Decision Making [facility] Narrative: 28 yo female with PMH of lap hany recent diverticulitis with DC on 02/20 unfortunately did not take her Rx for augmentin. She is now back with recurrent LLQ pain n/v loose stools and chills. I have ordered labs, CT scan for diverticulitis with complication. IV morphine for pain and empiric levofloxacin. Differential Diagnosis Differential Diagnoses: The differential diagnosis associated with the presentation includes diverticulitis - complicated vs uncomplicated Admission/Observation Consideration of admission/observation: Escalation of care including admission/observation considered tolerating PO has WBC count but this seems intermittently chronic pain well controlled can be managed with oral abx Lab Data [facility] Lab Attestation statement: I reviewed the patient's lab results. 03/21/24 14:28 03/21/24 14:28 Labs: Lab Results 03/21/24 03/21/24 03/21/24 Range/Units 14:28 14:35 21:32 WBC 16.2 H (4.8-10.8) X10*3/uL RBC 5.38 (4.20-5.50) X10*6/uL Hgb 11.9 L (12.0-16.0) g/dl Hct 37.1 (37.0-47.0) % MCV 69.0 L (80.0-98.0) fL MCH 22.1 L (27.0-33.0) pg MCHC 32.1 (31.0-35.0) g/dl RDW 16.5 H (11.0-16.0) % Plt Count 385 D (160-400) X10*3/uL MPV 10.7 (9.4-12.3) fL Immature Gran % (Auto) 0.5 H (0.0-0.4) % Neut % (Auto) 69.4 (45-73) % Lymph % (Auto) 23.1 (20-40) % [place] % (Auto) 5.0 (2-11) % Eos % (Auto) 1.7 (0-4) % Baso % (Auto) 0.3 (0-2) % Lymph # (Auto) 3.7 (1.2-4.9) X10*3/uL [place] # (Auto) 0.8 (0.1-1.2) X10*3/uL Eos # (Auto) 0.3 (0.0-0.4) X10*3/uL Baso # (Auto) 0.1 (0.0-0.2) X10*3/uL Abs Immat Gran (auto) 0.08 H (0.00-0.03) X10*3/uL Absolute Neuts (auto) 11.2 H (2.0-8.3) x10*3/uL Absolute Nucleated RBC 0.000 (0.0-0.012) X10*3/uL Nucleated RBC % (auto) 0.0 (0.0-0.2) /100WBC Sodium 138 (135-145) mmol/L Potassium 3.6 (3.3-5.1) mmol/L Chloride 106 (96-108) mmol/L Carbon Dioxide 23 (22-29) mmol/L Anion Gap 13 (12-20) BUN 8 L (9-16) mg/dL Creatinine 0.74 (0.5-1.4) mg/dL Estim Creat Clear Calc 127.9 Estimated GFR > 60 Random Glucose 102 (60-115) mg/dL Lactic Acid 1.3 (0.5-2.0) mmol/L Calcium 9.4 D (8.4-10.2) mg/dL Total Bilirubin 0.1 (0.0-1.0) mg/dL AST 18 (5-31) U/L ALT 19 (0-31) U/L Alkaline Phosphatase 76 (39-117) U/L Total Protein 7.6 (6.5-8.0) g/dL Albumin 4.1 (3.5-5.0) g/dL Lipase 18 (8-78) U/L Beta HCG, Quant < 2 mIU/mL Urine Color Yellow Urine Appearance Clear Urine pH 5.5 (5.0-9.0) Ur Specific [place] 1.025 (1.005-1.025) Urine Protein Negative (Neg-Trace) mg/dL Urine Glucose (UA) Negative (Negative) mg/dL Urine Ketones Trace (Negative) mg/dL Urine Blood Negative (Negative) Urine Nitrite Negative (Negative) Ur Leukocyte Esterase Trace H (Negative) Urine RBC 0-2 (0-2) /HPF Urine WBC 0-5 (0-5) /HPF Ur Squamous Epith Cells 3-5 (0-2) /HPF Urine Bacteria None Seen (None Seen) Hyaline Casts 0-2 (0-2) /LPF Independent Interpretation I performed an independent interpretation of an: CT Scan (diverticulitis) Radiology Impression Discussion of test interpretation with radiology: I have reviewed the radiologist's reading. External Record Review External record reviewed: Inpatient record Prescription Management I considered prescription management with: Pain Medication, Antibiotic and Other Medications Administered Discontinued Medications Generic Name Dose Route Start Last Admin Trade Name Freq PRN Reason Stop Dose Admin Sodium Chloride 1,000 mls @ 999 mls/hr 03/21/24 21:11 03/21/24 21:27 Ns IV 03/21/24 22:11 999 mls/hr .Q1H1M ONE Administration Levofloxacin 750 mg in 150 mls @ 100 mls/hr 03/21/24 21:11 03/21/24 22:30 Levaquin IV 03/21/24 22:40 100 mls/hr ONCE ONE Administration Morphine Sulfate 4 mg 03/21/24 21:11 03/21/24 22:27 Morphine Sulfate 4 Mg/Ml Cartridge IVPUSH 03/21/24 21:12 4 mg ONCE ONE Administration Protocol Ondansetron HCl 4 mg 03/21/24 21:11 03/21/24 22:27 Ondansetron Hcl 4 Mg/2 Ml Vial IVPUSH 03/21/24 21:12 4 mg ONCE ONE Administration Critical Care Time Critical Care Time Critical Care Time: Yes Total Critical Care Time: 35 Attestation: review of records, repeat assessment, pain in improved with IV morphine I attest to this time spent taking care of the patient Discharge Plan Discharge Clinical Impression: Diverticulitis Patient Disposition: Home, Self-Care Instructions: Diverticulitis (ED) Additional Instructions: YOU HAVE TO TAKE THE ANTIBIOTICS WE DISCUSSED return for fevers, vomiting, worsening symptoms or any other concerns. no alcohol with the antibiotics no strenuous activity or working out while on antibiotics and for 5 days after Prescriptions: New ondansetron 4 mg tablet,disintegrating 4 mg PO Q8H PRN (Reason: nausea and vomiting) Qty: 20 0RF metronidazole 500 mg tablet 500 mg PO BID 10 Days Qty: 20 0RF levofloxacin 750 mg tablet 750 mg PO DAILY Qty: 9 0RF hydrocodone-acetaminophen 5-325 mg tablet 1 tab PO Q6H PRN (Reason: pain) Qty: 10 0RF Rx Instructions: partial fill okay; Partial Fill upon patient request. No Action amlodipine 5 mg tablet 5 mg PO DAILY bupropion HCl 150 mg tablet extended release 24 hr 150 mg PO DAILY amoxicillin 875 mg tablet 875 mg PO BID Qty: 20 0RF ondansetron 8 mg tablet,disintegrating 8 mg PO Q8H PRN (Reason: nausea and vomiting) Qty: 20 0RF Print Language: Korean
[2024-03-21 21:26] VITALS: BP 133/80; PULSE 81; RESP 18; TEMP 36.7; O2SAT 98
[2024-03-21] MEDS: 0.9 % Sodium Chloride 1,000 ML 999 ML IV (21:27)
[2024-03-21 21:36] LABS: Lipase 18 U/L (8-78)
[2024-03-21 21:50] LABS: Lactic Acid 1.3 mmol/L (0.5-2.0)
[2024-03-21] MEDS: Morphine Sulfate 4 MG/ML CARTRIDGE IVPUSH (22:27)
[2024-03-21] MEDS: ondansetron HCL 4 MG/2 ML VIAL IVPUSH (22:27)
[2024-03-21] MEDS: levoFLOXacin/D5W 750 MG/150 ML PIGGYBACK 100 MG IV (22:30)
[2024-03-21 23:38] VITALS: BP 105/60; PULSE 96; RESP 18; TEMP 36.7; O2SAT 97
[2024-03-22 01:00] VITALS: BP 110/71; PULSE 90; RESP 16; TEMP 36.4; O2SAT 98
== END 2024-03-22 01:01 | disposition home or self-care (01) ==
PROVIDERS: Registered Nurse Emergency; Emergency Provider Emergency Medicine; PCP Nurse Practitioner Family
DX: K57.32 Diverticulitis of large intestine without perforation or abscess without bleeding (principal); R10.2 Pelvic and perineal pain; R11.2 Nausea with vomiting, unspecified; Z79.899 Other long term (current) drug therapy
CPT/HCPCS: 36415; 74177; 80053; 81001; 83605; 83690; 84702; 85025; 87040; 96361; 96374; 96375; 99285; J1956; J2270; J2405

== ENCOUNTER 2024-03-31 15:11 | Outpatient (REF) | payer MEDICAID, SELFPAY ==
[2024-03-31 16:02] LABS: MANUAL DIFF FLAG NO
[2024-03-31 16:10] LABS: Basophils Absolute Auto 0.1 X10*3/uL (0.0-0.2); Basophils Percent Auto 0.4 % (0-2); Eosinophils Absolute Auto 0.2 X10*3/uL (0.0-0.4); Eosinophils Percent Auto 1.9 % (0-4); Hematocrit 36.5 % (37.0-47.0); Hemoglobin 11.6 g/dl (12.0-16.0); Imm Gran Abs Auto 0.05 X10*3/uL (0.00-0.03); Imm Gran Pct Auto 0.4 % (0.0-0.4); Lymphocytes Absolute Auto 3.4 X10*3/uL (1.2-4.9); Lymphocytes Percent Auto 28.4 % (20-40); Mean Corpuscular HGB Conc 31.8 g/dl (31.0-35.0); Mean Corpuscular Hemoglobin 22.2 pg (27.0-33.0); Mean Corpuscular Volume 69.9 fL (80.0-98.0); Mean Platelet Volume 10.9 fL (9.4-12.3); Monocytes Absolute Auto 0.6 X10*3/uL (0.1-1.2); Neutrophils Absolute Auto 7.7 x10*3/uL (2.0-8.3); Neutrophils Percent Auto 63.9 % (45-73); Platelet Count 410 X10*3/uL (160-400); Red Blood Count 5.22 X10*6/uL (4.20-5.50); Red Cell Distribution Width 16.8 % (11.0-16.0); White Blood Count 12.1 X10*3/uL (4.8-10.8)
[2024-03-31 16:26] LABS: Estimated Average Glucose 120 mg/dL; Hemoglobin A1C 118.7441 umol/L; Hemoglobin A1c % 5.8 % (<6.0); Total Hemoglobin (HGBA1C) 2951.6133 umol/L
[2024-03-31 16:34] LABS: Alanine Aminotransferase 11 U/L (0-31); Albumin Level 3.8 g/dL (3.5-5.0); Alkaline Phosphatase 64 U/L (39-117); Anion Gap 13 (12-20); Aspartate Amino Transferase 16 U/L (5-31); Bilirubin Total 0.1 mg/dL (0.0-1.0); Blood Urea Nitrogen 9 mg/dL (9-16); Calcium 9.6 mg/dL (8.4-10.2); Carbon Dioxide 26 mmol/L (22-29); Chloride 106 mmol/L (96-108); Cholesterol 126 mg/dL (<200); Estimated Glomerular Filt Rate > 60; Glucose Random 102 mg/dL (60-115); HDL Cholesterol 45 mg/dL (>40); LDL Cholesterol Calculated 67 mg/dL (<100); Potassium 3.7 mmol/L (3.3-5.1); Sodium 141 mmol/L (135-145); Total Protein 7.4 g/dL (6.5-8.0); Triglycerides 72 mg/dL (<150)
[2024-04-03 08:21] LABS: HIV AB/AG Nonreactive (Nonreactive); HIV Num 1 0.06 S/CO (0.00-0.99); ~HepC Num1 0.22 S/CO (0.00-0.79); ~Hepatitis C Antibody Nonreactive (Nonreactive)
[2024-04-03 17:13] LABS: RPR Rapid Plasma Reagin NON-REACTIVE (NON-REACTIVE)
== END 2024-03-31 15:12 | disposition home or self-care (01) ==
LOC: HO.HHCL 15:11
PROVIDERS: Visit Provider Nurse Practitioner Family
DX: Z00.00 Encounter for general adult medical examination without abnormal findings (principal); Z11.4 Encounter for screening for human immunodeficiency virus [HIV]; K57.92 Diverticulitis of intestine, part unspecified, without perforation or abscess without bleeding
CPT/HCPCS: 36415; 80053; 80061; 83036; 85025; 86592; 86803; 87389

== ENCOUNTER 2024-06-27 10:23 | Emergency (ER) | payer SELFPAY ==
--- NOTE | ~2024-06-27 | CT_ITS ---
EXAMINATION: CT HEAD WITHOUT CONTRAST CLINICAL INFORMATION: headache COMPARISON: None available. TECHNIQUE: Contiguous axial imaging was performed from the skull base to vertex without intravenous administration of contrast. This CT examination was performed using dose optimization techniques as appropriate, variously including the following: *Automated exposure control *Adjustment of mA and/or kV according to patient size (this includes techniques or standardized protocols for targeted exams where dose is matched to indication/reason for exam; i.e. extremities or head) *Use of iterative reconstruction technique DLP: 684 mGy-cm FINDINGS: No acute intracranial hemorrhage, mass effect, midline shift, hydrocephalus or herniation. Gonzales-white matter differentiation is normal. Posterior cranial fossa contents demonstrated no acute intracranial hemorrhage or mass effect. Sellar/suprasellar region demonstrated no gross masses. No air-fluid levels in the included paranasal sinuses. For pneumatization of the frontal sinuses. Tympanic cavities and mastoid air cells are aerated. CT/CT head/brain wo IV con IMPRESSION: No acute or structural brain abnormality by CT. Electronically signed by: Carlitos Pascual MD 06/27/2024 01:14 PM CHERYL MARKHAM
[2024-06-27 12:13] VITALS: BP 132/96; PULSE 101; RESP 16; TEMP 36.8; O2SAT 100; BMI 48.8
--- NOTE | 2024-06-27 12:13 | ED_ITS ---
HPI - Headache General Chief Complaint: Headache Stated Complaint: Headache 1 week Time Seen by Provider: 06/27/24 19:18 Source: patient Mode of arrival: ambulatory Limitations: no limitations History of Present Illness ED Provider: Dr. Vitale HPI Narrative: 29-year-old female past medical history significant for hypertension currently not on any medications migraines presents emergency department for 1 week of body aches headache and rash. She has not taken anything for the rash in the any falls or injuries denies any new exposures patient was seen in triage had x- ray and labs including COVID flu and RSV swabs which were all negative. She also had a CT of the head which was negative. Patient noticed itchy rash to her chest arms and face for the past 3 days she denies any new foods or different foods but then admitted that she is on a new diet is only eating once a day. No history of migraines headaches or previous neuroimaging Related Data Home Medications ?Medication ?Instructions ?Recorded ?Confirmed amlodipine 5 mg tablet 5 mg PO DAILY 02/18/24 02/18/24 bupropion HCl 150 mg 24 hr tablet, 150 mg PO DAILY 02/18/24 02/18/24 extended release Previous Rx's ?Medication ?Instructions ?Recorded amoxicillin 875 mg tablet 875 mg PO BID #20 tabs 02/21/24 ondansetron 8 mg disintegrating 8 mg PO Q8H PRN nausea and 02/21/24 tablet vomiting #20 tabs hydrocodone 5 mg-acetaminophen 325 1 tab PO Q6H PRN pain #10 tabs 03/22/24 mg tablet levofloxacin 750 mg tablet 750 mg PO DAILY #9 tabs 03/22/24 metronidazole 500 mg tablet 500 mg PO BID 10 days #20 tabs 03/22/24 ondansetron 4 mg disintegrating 4 mg PO Q8H PRN nausea and 03/22/24 tablet vomiting #20 tabs acetaminophen 325 mg tablet 325 mg PO QID PRN pain #90 tabs 06/27/24 (Tylenol) diphenhydramine HCl 25 mg capsule 25 mg PO Q6-8H PRN allergic 06/27/24 (Benadryl) reaction #60 caps prednisone 20 mg tablet 60 mg (3 x 20 mg) PO DAILY Asthma 06/27/24 5 days #15 tabs Allergies Allergy/AdvReac Type Severity Reaction Status Date / Time No Known Allergies Allergy Verified 06/27/24 12:16 [No Known Allergies*] Review of Systems 2 Review of Systems: Review of systems: General: Patient denies any fever chills recent illness or falls Musculoskeletal: Denies back pain or body aches or other injuries HEENT: headache, runny nose, ear pain Respiratory: denies shortness of breath, cough Cardiovascular: no chest pain or palpitations : denies dysuria, frequency Abdomen: no nausea vomiting denies abdominal pain Extremities: no swelling, no pain Skin: Rash no diaphoresis Yes all other systems are reviewed and are negative [facility] Past Medical History Medical History COVID-19 Urinary tract infection HTN (hypertension) with goal to be determined Morbid obesity No pertinent past medical history Surgical History Hx of wisdom tooth extraction History of wisdom tooth extraction, class I edentulism History of laparoscopic cholecystectomy Family History Family History (Updated 02/24/24 @ 11:20 by Zohra Burleson CMA) Mother Paroxysmal dystonia Diabetes Father Family history unknown Daughter No problems noted. Social History Social History Household Members: Family and Children Housing: Apartment Do you presently have visiting nurse or other home services: No Alcohol intake: never Patient Tobacco Use Status: Current someday Tobacco user Tobacco use type: Cigarette Cigarette Packs Per Day: 0.5 Cigarettes Per Day: 7 e-Cigarette/Vaping Use: Never Used Substance Use Type: Marijuana service: No Physical Exam 2 Vital Signs: Vital Signs: Last Vital Signs Temp 97.9 F 06/27/24 19:15 Pulse 98 06/27/24 19:15 Resp 16 06/27/24 19:15 BP 126/83 06/27/24 19:15 Pulse Ox 100 06/27/24 19:15 O2 Del Method Room Air 06/27/24 19:15 BMI result Body Mass Index 48.8 Neurological exam: CN II- XII tested. Patient is alert and oriented to person place and time. Patient has no dysphagia or dysarthia, denies good vision in all four vision sánchez no nystagmus on exam, good strength to upper and lower extremities with normal reflexes to brachioradialis, wrist, patella and achilles. Negative romberg, good finger to nose and heel to calab[place]. General: Well-appearing well-nourished in no signs of distress HEENT: Normocephalic atraumatic Neck: No signs of JVD, no masses no tenderness or lymphadenopathy Cardiovascular: Regular rate and rhythm Respiratory: Clear to auscultation bilaterally Abdomen: Soft nontender no masses Extremities: Normal pedal pulses no signs of edema Skin: Dry warm no rashes Back: No tenderness full ROM Course Course Course Narrative: This is an RME: Additional HPI, ROS, PE not included below will be deferred to primary provider. RME assessment and note performed by: Kristin Kelley PA-C This is a [id number], with a hx of HTN, who presents to the ER with complaints of headache, body aches x 1 week. Pt reports that she has been taking OTC migraine. Hx of HTN, has not been compliant on her medications - advised by her PCP that she does not need to take it if her BP is WNL. Reporting intermittent rash on trunk x 2-3 days. No fevers, chills. Rash is itchy. Plan: Viral swabs, labs, CT head Medical Decision Making Medical Decision Making [facility] Narrative: I am unsure if the rash is related to her recent dieting related I do think the dieting likely is contributing to her headache causing some dehydration she does look well she would have COVID flu RSV x-ray and labs which were all unremarkable I do think she is safe to go home I will treat the patient with Toradol Tylenol Pepcid prednisone and Benadryl at this time. Differential Diagnosis Differential Diagnoses: The differential diagnosis associated with the presentation includes headache migraine dehydration electrolyte abnormality allergic reaction Lab Data [facility] Lab Attestation statement: I reviewed the patient's lab results. 06/27/24 12:40 06/27/24 12:40 Labs: Lab Results 06/27/24 Range/Units 12:40 WBC 6.0 (4.8-10.8) X10*3/uL RBC 5.43 (4.20-5.50) X10*6/uL Hgb 12.0 (12.0-16.0) g/dl Hct 37.5 (37.0-47.0) % MCV 69.1 L (80.0-98.0) fL MCH 22.1 L (27.0-33.0) pg MCHC 32.0 (31.0-35.0) g/dl RDW 15.9 (11.0-16.0) % Plt Count 344 (160-400) X10*3/uL MPV 10.3 (9.4-12.3) fL Immature Gran % (Auto) 0.2 (0.0-0.4) % Neut % (Auto) 56.1 (45-73) % Lymph % (Auto) 25.4 (20-40) % [place] % (Auto) 10.8 (2-11) % Eos % (Auto) 7.3 H (0-4) % Baso % (Auto) 0.2 (0-2) % Lymph # (Auto) 1.5 (1.2-4.9) X10*3/uL [place] # (Auto) 0.7 (0.1-1.2) X10*3/uL Eos # (Auto) 0.4 (0.0-0.4) X10*3/uL Baso # (Auto) 0.0 (0.0-0.2) X10*3/uL Abs Immat Gran (auto) 0.01 (0.00-0.03) X10*3/uL Absolute Neuts (auto) 3.4 (2.0-8.3) x10*3/uL Absolute Nucleated RBC 0.000 (0.0-0.012) X10*3/uL Nucleated RBC % (auto) 0.0 (0.0-0.2) /100WBC Sodium 142 (135-145) mmol/L Potassium 4.2 (3.3-5.1) mmol/L Chloride 110 H (96-108) mmol/L Carbon Dioxide 23 (22-29) mmol/L Anion Gap 13 (12-20) BUN 6 L (9-16) mg/dL Creatinine 0.68 (0.5-1.4) mg/dL Estim Creat Clear Calc 137.4 Estimated GFR > 60 Random Glucose 105 (60-115) mg/dL Calcium 9.0 D (8.4-10.2) mg/dL Total Bilirubin 0.2 (0.0-1.0) mg/dL AST 25 (5-31) U/L ALT 18 (0-31) U/L Alkaline Phosphatase 66 (39-117) U/L Total Protein 8.1 H (6.5-8.0) g/dL Albumin 3.9 (3.5-5.0) g/dL Beta HCG, Quant < 2 mIU/mL Influenza Type A (PCR) NEGATIVE (Negative) Influenza Type B (PCR) NEGATIVE (Negative) RSV RNA Qual (PCR) NEGATIVE (Negative) SARS-CoV-2 RNA (RT-PCR) NEGATIVE (Negative) External Record Review External record reviewed: Inpatient record and Office record Discharge Plan Discharge Clinical Impression: Headache, Allergic reaction Patient Disposition: Home, Self-Care Instructions: Acute Headache (DC), General Allergic Reaction (ED), Allergy Testing (ED) Additional Instructions: you were seen today in the emergency department for a headache as well as rash. You underwent CT labs and testing for COVID flu and RSV which were all negative. You need to follow up with your doctor I recommend trying Tylenol and ibuprofen at home he can also try Benadryl as needed. I will start her on some prednisone to help you with the rash as well Prescriptions: New acetaminophen [Tylenol] 325 mg tablet 325 mg PO QID PRN (Reason: pain) Qty: 90 0RF prednisone 20 mg tablet 60 mg PO DAILY 5 Days Qty: 15 0RF diphenhydramine HCl [Benadryl] 25 mg capsule 25 mg PO Q6-8H PRN (Reason: allergic reaction) Qty: 60 0RF No Action ondansetron 4 mg tablet,disintegrating 4 mg PO Q8H PRN (Reason: nausea and vomiting) Qty: 20 0RF metronidazole 500 mg tablet 500 mg PO BID 10 Days Qty: 20 0RF levofloxacin 750 mg tablet 750 mg PO DAILY Qty: 9 0RF hydrocodone-acetaminophen 5-325 mg tablet 1 tab PO Q6H PRN (Reason: pain) Qty: 10 0RF Rx Instructions: partial fill okay; Partial Fill upon patient request. amlodipine 5 mg tablet 5 mg PO DAILY bupropion HCl 150 mg tablet extended release 24 hr 150 mg PO DAILY amoxicillin 875 mg tablet 875 mg PO BID Qty: 20 0RF ondansetron 8 mg tablet,disintegrating 8 mg PO Q8H PRN (Reason: nausea and vomiting) Qty: 20 0RF Print Language: Nauruan
[2024-06-27 12:45] LABS: MANUAL DIFF FLAG NO
[2024-06-27 12:46] LABS: Basophils Percent Auto 0.2 % (0-2); Eosinophils Absolute Auto 0.4 X10*3/uL (0.0-0.4); Eosinophils Percent Auto 7.3 % (0-4); Hematocrit 37.5 % (37.0-47.0); Imm Gran Abs Auto 0.01 X10*3/uL (0.00-0.03); Imm Gran Pct Auto 0.2 % (0.0-0.4); Lymphocytes Absolute Auto 1.5 X10*3/uL (1.2-4.9); Lymphocytes Percent Auto 25.4 % (20-40); Mean Corpuscular Hemoglobin 22.1 pg (27.0-33.0); Mean Corpuscular Volume 69.1 fL (80.0-98.0); Mean Platelet Volume 10.3 fL (9.4-12.3); Monocytes Absolute Auto 0.7 X10*3/uL (0.1-1.2); Monocytes Percent Auto 10.8 % (2-11); Neutrophils Absolute Auto 3.4 x10*3/uL (2.0-8.3); Neutrophils Percent Auto 56.1 % (45-73); Platelet Count 344 X10*3/uL (160-400); Red Blood Count 5.43 X10*6/uL (4.20-5.50); Red Cell Distribution Width 15.9 % (11.0-16.0)
[2024-06-27 13:06] LABS: Alanine Aminotransferase 18 U/L (0-31); Albumin Level 3.9 g/dL (3.5-5.0); Alkaline Phosphatase 66 U/L (39-117); Anion Gap 13 (12-20); Aspartate Amino Transferase 25 U/L (5-31); Bilirubin Total 0.2 mg/dL (0.0-1.0); Blood Urea Nitrogen 6 mg/dL (9-16); Carbon Dioxide 23 mmol/L (22-29); Chloride 110 mmol/L (96-108); Creatinine Clr Calc Pharmacy 137.4; Estimated Glomerular Filt Rate > 60; Glucose Random 105 mg/dL (60-115); HCG Quantitative < 2 mIU/mL; Potassium 4.2 mmol/L (3.3-5.1); Sodium 142 mmol/L (135-145); Total Protein 8.1 g/dL (6.5-8.0)
[2024-06-27 13:24] LABS: Influenza A PCR NEGATIVE (Negative); Influenza B PCR NEGATIVE (Negative); Resp Syncy Virus RNA Qual PCR NEGATIVE (Negative); SARS COV2 PCR INHOUSE NEGATIVE (Negative)
--- OUTSIDE RECORDS SUMMARY | 2024-06-27 15:23 | XMS_ITS | Encounter Summary ---
Author Organization [employer] Address [address] [facility] 7 [place] [address] Care Team Providers Care Smeller Name Role Phone Cande Tolentino NP Primary Care Provider [phone] Reason for Visit * Reason Onset Date Comments Hospital Follow-up 02/23/2024 Encounter Details Date Type Department Care Team ([facility] st Contact Info) Description 02/23/2024 Telephone [facility] MEDICINE [address] [place] [address] Cande Tolentino NP [address] [place] [address] Hospital Follow-up Social History Tobacco Use Types Packs/Day Years Used Date Smoking Tobacco: Every Day Cigarettes Passive Smoke Exposure: Current Smokeless Tobacco: Never Alcohol Use Standard Drinks/Week Comments Never 0 (1 standard drink = 0.6 oz pur e alcohol) Depression Answer Date Recorded Patient Health Questionnaire-9 Score 20 06/07/2023 Patient Health Questionnaire-9 Score 20 06/07/2023 Last PHQ-9: Questionnaire Data Not on file 0 06/07/2023 Housing Stability Answer Date Recorded What is your housing situation today? I do not have housing (Staying with others, in a hotel, in a assisted, living outside on the street, on a beach, in a car, or in a park 02/01/[address] you li ve. Do you have problems with any of the following? None of the above 02/01/2023 Food Insecurity Answer Date Recorded Within the past 12 months, y ou worried that your food would run out before you got money to buy more: Never True 02/08/2023 Within the past 12 months,th e food you bought just didn't last and you didn't have enough money to get more: Never True Transportation Answer Date Recorded In the past 12 months, has l ack of transportation kept you from medical appts, meetings, work or from getting things needed for daily living? No 02/08/2023 Utilities Answer Date Recorded In the past 12 months, has t he electric, gas, oil or water company threatened to shut off services in your home? No 02/08/2023 Depression Answer Date Recorded Patient Health Questionnaire-2 Score 6 06/07/2023 Comments No Sex and Gender Information Value Date Recorded Sex Assigned at Female 02/23/2022 10:21 AM EDT Legal Sex Female 10:21 AM EDT Gender Identity Female 09/07/2022 8:53 AM EDT Sexual Orientation Straight 09/07/2022 8: 53 AM EDT documented as of this encounter Miscellaneous Notes * Telephone Encounter - Selma Arreguin - 02/23/2024 9:47 AM EDT Tc from pt requesting a HDF appt. [place] [facility] [place] Date of admission: 02/18/24 Discharge date: 02/21/24 Diagnosed: diverticulitis and UTI documented in this encounter Plan of Treatment Not on file documented as of this encounter Visit Diagnoses Not on filedocumented in this encounter Additional Health Concerns Assessment Noted Time PHQ-9 Depression Total Score: 20 024 2:33 PM EST documented as of this encounter Care Teams Smeller Relationship Specialty Start Date End Date Cande Tolentino NP [address] [place] [address] PCP - General Family Medicine 12/29/23 documented as of this encounter
--- OUTSIDE RECORDS SUMMARY | 2024-06-27 15:23 | XMS_ITS | Encounter Summary ---
Author Organization [employer] Address [address] [facility] [address] [place] [address] Care Team Providers Care Manager Exchange Name Role Phone Rhonda Mejia Primary Care Provider [phone] Cande Tolentino NP Primary Care Provider [phone] Reason for Visit * Reason Onset Date Comments Med Refill 09/06/2023 Encounter Details Date Type Department Care Team (Late st Contact Info) Description 09/06/2023 Refill [facility] MEDICINE [address] [place] [address] Rhonda Mejia FNP [address] [place], [place] [phone] Depression with anxiety Social History Tobacco Use Types Packs/Day Years [...] with others, in a hotel, in a long term, living outside on the street, on a [...] AM EDT documented as of this encounter Plan of Treatment Not on file documented as of this encounter Visit Diagnoses Diagnosis Depression with anxiety Dysthymic disorder documented in this encounter Additional Health Concerns Assessment Noted Time PHQ-9 Depression Total Score: 20 024 2:33 PM EST documented as of this encounter Care Teams Manager Exchange Relationship Specialty Start Date End Date Rhonda Mejia FNP [address] [place] [address] PCP - General Family Medicine 08/19/22 12/28/23 Cande Tolentino NP [address] [place] [address] PCP - General Family Medicine 12/29/23 documented as of this encounter
--- OUTSIDE RECORDS SUMMARY | 2024-06-27 15:23 | XMS_ITS | Encounter Summary ---
Author Organization [facility] Address [address] [place] [address] Care Team Providers Care Juvenile Court Liaison Name Role Phone Unknown Primary Care Provider [phone] Naty Bravo APRN Primary Care Provider + Encounter Details Date Type Department Care Team (Late st Contact Info) Description 07/24/2020 Scanned Document [facility] [address] [place] [id number] Primary Care, Scan Social History Tobacco Use Types Packs/Day Years Used Date Smoking Tobacco: Former Cigarettes Q uit: 06/2017 Smokeless Tobacco: Never Alcohol Use Standard Drinks/Week Comments No 0 (1 standard drink = 0.6 oz pur e alcohol) Sex and Gender Information Value Date Recorded Sex Assigned at Not on file Gender Identity Not on file Sexual Orientation Not on file COVID-19 Exposure Response Date Recorded In the last month, have you been in contact with someone who was confirmed or suspected to have Coronavirus / COVID-19? No / Unsure 07/24/2020 1:22 PM EDT documented as of this encounter Plan of Treatment Not on file documented as of this encounter Procedures Procedure Name Priority Date/Time Associated Diagnosis Comments HX OUTSIDE ORDER 07/24/2020 documented in this encounter Results * HX OUTSIDE ORDER (07/24/2020) Scan Primary Care HX AMB PROCEDURES documented in this encounter Visit Diagnoses Not on filedocumented in this encounter Care Teams Juvenile Court Liaison Relationship Specialty Start Date End Date Unknown Unknow Provider Address PCP - General 04/21/20 08/09/20 Naty Bravo APRN [address] [place] [id number] PCP - General Adult Health - TREY/JULIO/PAULETTE/PAZ 08/10/20 documented as of this encounter
--- OUTSIDE RECORDS SUMMARY | 2024-06-27 15:23 | XMS_ITS | Clinical Summary ---
Author Organization [employer] Address [address] [facility] [address] [place] [address] Care Team Providers Care Radiotelephone Technical Operator Name Role Phone CamCande sanchez PAULETTE Primary Care Provider [phone] Allergies No known active allergies Medications * This document contains information received from the source organization and may not represent a complete record from that organization. buPROPion XL (Wellbutrin XL) 150 MG 24 hr tabletIndication s:Depression with anxiety Take 1 tablet (150 mg) by mouth in the morning. Do not crush, chew, or split. 30 tablet 11 4 07/19/19 25 Active albuterol 108 (90 Base) MCG/ACT inhaler Inhale 2 puffs every 4 (four) hours if needed for wheezing or shortness of breath. 18 g 1 4 09/30/19 25 Active Spacer/Aero-Hold ing Chambers (OptiChamber Elzbieta) misc 1 each every 4 (four) hours if needed (asthma). 1 each 4 Active amLODIPine (Norvasc) 5 MG tabletIndication s:Hypertension, unspecified type Take 1 tablet (5 mg) by mouth Once per day. 90 tablet 3 4 03/31/20 25 Active Blood Pressure Monitoring (Comfort Touch BP Cuff/Large) miscIndications: Elevated blood pressure reading 1 kit Once per day. 1 each 4 Active Active Problems Problem Noted Date Diagnosed Date Elevated blood pressure reading 03/31/2024 Healthcare maintenance 03/31/2024 Assessment & Plan (03/31/2024 7:10 PM EST): Routine labs ordered Will schedule pap Atopic dermatitis 03/31/2024 Assessment & Plan (03/31/2024 7:10 PM EST): Inner thighs and gluteal folds Intertrigo 03/31/2024 Diverticulitis 03/30/2024 Assessment & Plan (03/31/2024 7:13 PM EST): Improving, completed abx, Return to clinic in 3-4 weeks Referral to GI Will completed fmla paperwork Vertigo 09/06/2023 Assessment & Plan (09/06/2023 4:26 PM EDT): Use meclizine 12.5-25mg tid prn dizziness, x max 2w, re consult prn if sxs persist. Use Flonase dialy x 2w to decrease nasal congestion that may be triggering sxs. Out of work x 2d so that she can freely take meclizine without concern for sedation at work. Tobacco dependence 12/23/2022 HTN (hypertension) 12/23/2022 Assessment & Plan (03/31/2024 7:10 PM EST): Above goal today, home bp cuff ordered Resume amlodipine 5 mg for bp above goal Assessment & Plan (09/06/2023 4:23 PM EDT): Uncontrolled, likely related to acute sxs. Continue to take amlodipine , check BP at home three times per week and fu with PCP if still elevated after 2w. Abdominal pain 11/16/2022 Moderate episode of recurrent major depressive d isorder 09/25/2022 Assessment & Plan (09/29/2022 2:29 PM EDT): Assessment: Patient with little interest/pleasure in things, feeling depressed, sleep disturbance, no energy, feeling bad about herself, trouble concentrating, and changes in speech and movement. She denies SI/HI. Presentation in the context of history of depression and trauma, recent loss of her great grandmother, housing issues. Patient will benefit from OP therapy referral. Patient declines referral for psychopharmacology service. At this time Rosalind Rajan meets criteria for Visit Diagnoses: Problem List Items Addressed This Visit Other Moderate episode of recurrent major depressive disorder (CMS/HCC) Patient ready to address current needs Yes Strengths include ability to seek out for help PLAN: 1. Follow up with [facility]: Not recommended for follow-up 2. Patient goal is to be connected to OP therapy 3. Behavioral Recommendations a. Patient will engage in OP therapy once service is established b. Patient will request to speak with a C during next PCP visit, if needed 01/03/2018 Obesity 10/14/2017 Overview (11/16/2022): BMI=43 Assessment & Plan (03/31/2024 7:13 PM EST): Will address at follow up, pt uncertain about bariatric procedure at this time Encounters Date Type Department Care Team Description 06/27/2024 Orders Only GENERIC EXTERNAL DATA DEPARTMENT Provider, Generic External Data 04/27/[address] [address] Radha Henriquez MA Chart Prep 04/24/[address] [address] Cande Tolentino NP Nurse Triage 03/31/2024 2:00 PM EST Office Visit [address] [address] Cande Tolentino NP Diverticulitis (Primary Dx); Elevated blood pressure reading; Hypertension, unspecified type; Healthcare maintenance; Atopic dermatitis, unspecified type; Intertrigo; Class 3 severe obesity with serious comorbidity and body mass index (BMI) of 45.0 to 49.9 in adult, unspecified obesity type (CMS/HCC) 03/29/[address] [address] Jonas Flores MA may recall from Last 3 Months Immunizations Name Administration Dates Next Due Tdap 12/22/2017 Family History Medical History Relation Name Comments Diabetes Mother Relation Name Status Comments Mother Social History Tobacco Use Types Packs/Day Years Used Date Smoking Tobacco: Every Day Cigarettes Passive Smoke Exposure: Current Smokeless Tobacco: Never Tobacco Cessation:Ready to Q uit: Not Asked; Counseling Given: Not Answered Alcohol Use Standard Drinks/Week Comments Never 0 (1 standard drink = 0.6 oz pur e alcohol) Depression Answer Date Recorded Patient Health Questionnaire-9 Score 19 03/31/2024 Patient Health Questionnaire-9 Score 19 03/31/2024 Last PHQ-9: Questionnaire Data Not on file 1 06/01/2023 Housing Stability Answer Date Recorded What is your housing situation today? I do not have housing (Staying with others, in a hotel, in a halfway, living outside on the street, on a [...] Answer Date Recorded Patient Health Questionnaire-2 Score 4 03/31/2024 Comments No Sex and Gender Information Value Date Recorded Sex Assigned at Female 02/23/2022 10:21 AM EDT Legal Sex Female 10:21 AM EDT Gender Identity Female 09/07/2022 8:53 AM EDT Sexual Orientation Straight 09/07/2022 8: 53 AM EDT Last Filed Vital Signs Vital Sign Reading Time Taken Comments Blood Pressure 146/88 03/31/2024 2:02 PM EST Pulse 83 03/31/2024 2:02 PM EST Temperature 36.4 ??C (97.5 ??F) 03/31/2024 2:02 PM ES T Respiratory Rate 18 03/31/2024 2:02 PM EST Oxygen Saturation 98% 03/31/2024 2:02 PM EST Inhaled Oxygen Concentration - - Weight 116 kg (255 lb 12.8 oz) 03/31/2024 2:02 P M EST Height 152.4 cm (5') 03/31/2024 2:02 PM EST Body Mass Index 49.96 03/31/2024 2:02 PM EST Plan of Treatment Health Maintenance Due Date Last Done Comments Family Planning (PISQ) 2008 Hepatitis A Vaccines (1 of 2 - Risk 2-dose series) 2012 Hepatitis B Vaccines (1 of 3 - 19+ 3-dose series) 2012 Pneumococcal Vaccine: Pediatrics (0 to 5 Years) and At-Risk Patients (6 to 49) Years) (1 of 2 - PCV) 2012 SDOH Screening 09/19/2023 09/18/2022 COVID-19 Vaccine (1 - 2023-2 5 season) 2023 Influenza Vaccine (#1) 2023 Depression Monitoring (PHQ-9) 09/29/2024, 03/31/2024 Alcohol/Substance Use Screening 03/31/2025 03/31/2024 Depression Screening 03/31/2025 03/31/2024, 03/31/2024 Diabetes: Hemoglobin A1C 03/31/2025 024, 09/07/2022 Tobacco Screening 03/31/2025 03/31/2024 Cervical Cancer Screening 02/03/2026 HPV/Cotest 02/03/2026 Pap Smear 02/03/2026 02/03/2023, 02/03/2023 DTaP/Tdap/Td Vaccines (2 - T d or Tdap) 12/23/2027 12/22/2017 Lipid Panel 03/31/2029 03/31/2024, 09/07/2022 Zoster Vaccines (1 of 2) 2043 RSV Patients and Patients Aged 60 years or older (1 - 1-dose 75+ series) 2068 HIV Screening Completed 03/31/2024, 09/07/2022 Hepatitis C Screening Completed 03/31/2024 , 09/07/2022 HIB Vaccines Aged Out No longer eligi ble based on patient's age to complete this topic HPV Vaccines Aged Out No longer eligi ble based on patient's age to complete this topic IPV Vaccines Aged Out No longer eligi ble based on patient's age to complete this topic Meningococcal Vaccine Aged Out No matheus fer eligible based on patient's age to complete this topic RSV under 20 months Aged Out No longe r eligible based on patient's age to complete this topic Rotavirus Vaccines Aged Out No longer eligible based on patient's age to complete this topic Procedures Procedure Name Priority Date/Time Associated Diagnosis Comments HCG, TOTAL, QN Routine 06/27/2024 12:40 PM EST COMPREHENSIVE METABOLIC PANEL Routine 06/27/2024 12:40 PM EST CBC WITH AUTO DIFFERENTIAL Routine 06/27/2024 12:40 PM EST SARS COV2/INFLUENZA A/B AND RSV RNA QL NAAT Routine 06/27/2024 12:[address] HEAD WO CONTRAST Routine 06/27/2024 1 2:24 PM EST RPR (MONITOR) W/REFL TITER Routine 03/31/2024 3:12 PM EST Healthcare maintenance LIPID PANEL, STANDARD Routine 03/31/2024 3:12 PM EST Healthcare maintenance HEPATITIS C AB W/REFL TO HCV RNA, QN, PCR Routine 03/31/2024 3:12 PM EST Healthcare maintenance HIV 1/2 ANTIGEN/ANTIBODY, FOURTH GENERATION W/RFL Routine 03/31/2024 3:12 PM EST Healthcare maintenance HEMOGLOBIN A1C Routine 03/31/2024 3:12 PM EST Diverticulitis CBC WITH AUTO DIFFERENTIAL Routine 03/31/2024 3:12 PM EST Diverticulitis COMPREHENSIVE METABOLIC PANEL Routine 03/31/2024 3:12 PM EST Diverticulitis IMAGE-GUIDED PAP W/AGE BASED SCR,W/CT/NG/TRICH Routine 02/03/2023 10:58 AM EDT Abnormal uterine bleeding Cervical cancer screening Encntr screen for infections w sexl mode of transmiss from Last 3 Months or Most Recently Relevant to Health Maintenance Results * SARS-CoV-2 RNA, Influenza A/B, and RSV RNA, Ql NAAT (06/27/2024 12:40 PM EST) Influenza A PCR NEGATIVE Negative [facility] Influenza B PCR NEGATIVE Negative [facility] Resp Syncy Virus RNA Qual PCR NEGATIVE Negative [facility] SARS COV2 PCR NEGATIVE Negative [facility] Comment:All test results mus t be correlated with clinical findings.Negative results do not preclude SARS-CoV2, influenza Avirus, influenza B virus and/or RSV infectionand should not be used as the sole basis for treatment orother patient management decisions. Negative results must becombined with clinical observations, patient history, andepidemiological information.This test has not been evaluated for monitoring treatment ofinfection.This test has been authorized by the FDA under an EmergencyUse Authorization (EUA) for use by authorized laboratories.Testing performed on the [employer] GeneXpert utilizingreal-time RT-PCR.All SARS CoV2 and positive influenza A/B results arereported to [facility]. 06/27/2024 12:4 0 PM EST 06/27/2024 12:43 PM EST us Generic External Data Provider LAB MICROBIOLOGY - GENERAL ORDERABLES Final Result [facility] [address], [place] [phone] * (ABNORMAL) CBC auto differential (06/27/2024 12:40 PM EST) Only the most recent of2 resultswithin the time period is included. White Blood Count 6.0 4.8 - 10.8 X10*3/uL [facility] Red Blood Count 5.43 4.20 - 5.50 X10*6/uL [facility] Hemoglobin 12.0 12.0 - 16.0 g/dl [facility] Hematocrit 37.5 37.0 - 47.0 % [facility] Mean Corpuscular Volume 69.1(L) 80.0 - 98.0 fL [facility] Mean Corpuscular Hemoglobin 22.1(L) 27.0 - 33.0 pg [facility] Mean Corpuscular HGB Conc 32.0 31.0 - 35.0 g/dl [facility] Red Cell Distribution Width 15.9 11.0 - 16.0 % [facility] Platelet Count 344 160 - 400 X10*3/uL [facility] Mean Platelet Volume 10.3 9.4 - 12.3 fL [facility] Neutrophils Percent Auto 56.1 45 - 73 % [facility] Imm Gran Pct Auto 0.2 0.0 - 0.4 % [facility] Lymphocytes Percent Auto 25.4 20 - 40 % [facility] Monocytes Percent Auto 10.8 2 - 11 % [facility] Eosinophils Percent Auto 7.3(H) 0 - 4 % [facility] Basophils Percent Auto 0.2 0 - 2 % [facility] NRBC Pct Auto 0.0 0.0 - 0.2 /100WBC [facility] Neutrophils Absolute Auto 3.4 2.0 - 8.3 x10*3/uL [facility] Imm Gran Abs Auto 0.01 0.00 - 0.03 X10*3/uL [facility] Lymphocytes Absolute Auto 1.5 1.2 - 4.9 X10*3/uL [facility] Monocytes Absolute Auto 0.7 0.1 - 1.2 X10*3/uL [facility] Eosinophils Absolute Auto 0.4 0.0 - 0.4 X10*3/uL [facility] Basophils Absolute Auto 0.0 0.0 - 0.2 X10*3/uL [facility] NRBC Abs Auto 0.000 0.0 - 0.012 X10*3/uL [facility] 06/27/2024 12:4 0 PM EST 06/27/2024 12:43 PM EST Generic External Data Provider LAB BLOOD ORDERAB LES Final Result Performing Organization Address [facility] de Phone Number [facility] [address] [place] [address] [phone] * hCG, Total, Quantitative (06/27/2024 12:40 PM EST) HCG Quantitative <2 mIU/mL [facility] Comment:Weeks post LMP Appro ximate hCG(Last Menstrual Period) Range (mIU/ml)3 - 4 weeks 9 - 1304 - 5 weeks 75 - 2,6005 - 6 weeks 850 - 20,8006 - 7 weeks 4000 - 100,2007 - 12 weeks 11,500 - 289,00087 - 16 weeks 18,300 - 137,79081 - 29 weeks (2nd trimester) 1,400 - 53,23516 - 41 weeks (3rd trimester) 940 - 60,000The Marshall B-hCG assay is used for the early detection ofpregnancy; it cannot be used to diagnose any conditionunrelated to . If a B-hCG level is not supportedby the clinical evidence, results should be confirmed by analternative method (qualitative urine hCG, for example). 06/27/2024 12:4 0 PM EST 06/27/2024 12:43 PM EST Generic External Data Provider LAB BLOOD ORDERAB LES Final Result Performing Organization Address [facility] Co de Phone Number [facility] [address] [place] [address] [phone] * (ABNORMAL) Comprehensive Metabolic Panel (06/27/2024 12:40 PM EST) Only the most recent of2 resultswithin the time period is included. Sodium 142 135 - 145 mmol/L [facility] Potassium 4.2 3.3 - 5.1 mmol/L [facility] Chloride 110(H) 96 - 108 mmol/L [facility] Carbon Dioxide 23 22 - 29 mmol/L [facility] Anion Gap 13 12 - 20 [facility] Urea Nitrogen (BUN) 6(L) 9 - 16 mg/dL [facility] Creatinine, Serum 0.68 0.5 - 1.4 mg/dL [facility] Creatinine Clr Calc Pharmacy 137.4 [facility] Comment:Provided height and weight: 152.4 cm,113.398 kg.eGFR (calculated from the MDRD study equation) and eCrCl(calculated from the Cockcroft-Gault equation) are based ondifferent parameters and may not yield comparable results.If eCrCl result is absurd, please check patient'sheight/weight. Estimated Glomerular Filt Rate >60 [facility] Comment:Chronic Kidney Disea se: Estimated GFR < 60 mL/min/1.20e2Cpeddc Kidney Disease: Estimated GFR < 15 mL/min/1.73m2 Glucose 105 60 - 115 mg/dL [facility] Calcium 9.0 8.4 - 10.2 mg/dL [facility] Bilirubin, Total 0.2 0.0 - 1.0 mg/dL [facility] Aspartate Amino Transferase 25 5 - 31 U/L [facility] Alanine Aminotransferase 18 0 - 31 U/L [facility] Total Protein 8.1(H) 6.5 - 8.0 g/dL [facility] Albumin Level 3.9 3.5 - 5.0 g/dL [facility] Alkaline Phosphatase 66 39 - 117 U/L [facility] 06/27/2024 12:4 0 PM EST 06/27/2024 12:43 PM EST us Generic External Data Provider LAB BLOOD ORDERAB LES Final Result [facility] [address] [place] [phone] * CT Head w/o Contrast (06/27/2024 12:24 PM EST) Anatomical Region Laterality Modality Head, Neck Computed Tomogra phy 06/27/2024 12:2 4 PM EST Narrative 06/27/2024 1:17 PM EST ? [facility] ?[address] ?[place] [address] ? CT Scan Report ? Signed ? Patient: Satinder,Rosalind ?MR#: [id number] ?? [id number] ? : 1995 ?Acct:[id number] ? Age/Sex: 29 / F ?ADM Date: 06/27/24 ? Loc: HO.ED ? Attending Dr: ? Ordering Physician: Kristin Kelley ?? Date of Service: 06/27/24 ?? Procedure(s): CT head/brain wo IV con ?? Accession Number(s): [id number] ? cc: Cande Tolentino CASE MGR; Kristin Kelley ? Report Number: ?? [id number]: Total DLP = ??684.00 mGy-cm ?? EXAMINATION: ?? CT HEAD WITHOUT CONTRAST ? CLINICAL INFORMATION: ?? headache ? COMPARISON: ?? None available. ? TECHNIQUE: ?? Contiguous axial imaging was performed from the skull base to vertex ?? without intravenous administration of contrast. ? This CT examination was performed using dose optimization techniques as ?? appropriate, variously including the following: ?? *Automated exposure control ?? *Adjustment of mA and/or kV according to patient size (this includes ?? techniques or standardized protocols for targeted exams where dose is ?? matched to indication/reason for exam; i.e. extremities or head) ?? *Use of iterative reconstruction technique ? DLP: ?? 684 mGy-cm ? FINDINGS: ?? No acute intracranial hemorrhage, mass effect, midline shift, ?? hydrocephalus or herniation. ?? Gonzales-white matter differentiation is normal. ?? Posterior cranial fossa contents demonstrated no acute intracranial ?? hemorrhage or mass effect. ?? Sellar/suprasellar region demonstrated no gross masses. ?? No air-fluid levels in the included paranasal sinuses. For ?? pneumatization of the frontal sinuses. Tympanic cavities and mastoid ?? air cells are aerated. ? CT/CT head/brain wo IV con ?? IMPRESSION: ?? No acute or structural brain abnormality by CT. ? Electronically signed by: ??Carlitos Pascual MD ??06/27/2024 01:14 PM ?? EST RP ? Dictated By: ?Carlitos Goldstein MD ? Signed By: ?<Electronically signed by Carlitos Mendez MD in OV> ? 06/27/24 1314 ? DD/ 1224 ? TD/TT: 06/27/24 1246 ? Medical Illustrator: ? Procedure Note Donotuseinterpreter, Image - 06/27/[address] [address] CT Scan Report Signed Patient: Jalen Rajan#: [id number] : 1995Acct:[id number] Age/Sex: Date: 06/27/24 Loc: HO.ED Attending Dr: Ordering Physician: Kristin Kelley Date of Service: 06/27/24 Procedure(s): CT head/brain wo IV con Accession Number(s): [id number] cc: Cande Tolentino CASE MGR; Kristin Kelley Report Number: [id number]: Total DLP = 684.00 mGy-cm EXAMINATION: CT HEAD WITHOUT CONTRAST CLINICAL INFORMATION: headache COMPARISON: None available. TECHNIQUE: Contiguous axial imaging was performed from the skull base to vertex without intravenous administration of contrast. This CT examination was performed using dose optimization techniques as appropriate, variously including the following: *Automated exposure control *Adjustment of mA and/or kV according to patient size (this includes techniques or standardized protocols for targeted exams where dose is matched to indication/reason for exam; i.e. extremities or head) *Use of iterative reconstruction technique DLP: 684 mGy-cm FINDINGS: No acute intracranial hemorrhage, mass effect, midline shift, hydrocephalus or herniation. Gonzales-white matter differentiation is normal. Posterior cranial fossa contents demonstrated no acute intracranial hemorrhage or mass effect. Sellar/suprasellar region demonstrated no gross masses. No air-fluid levels in the included paranasal sinuses. For pneumatization of the frontal sinuses. Tympanic cavities and mastoid air cells are aerated. CT/CT head/brain wo IV con IMPRESSION: No acute or structural brain abnormality by CT. Electronically signed by: Carlitos Pascual MD 06/27/2024 01:14 PM EST RP Dictated By: Carlitos Goldstein MD Signed By: <Electronically signed by Carlitos Mendez MDin OV> 06/27/24 1314 DD/ 1224 TD/TT: 06/27/24 1246 Medical Illustrator: Result [facility] External Provider IMG CT PROCEDURES Final Result * Hepatitis C Antibody with Reflex to HCV, RNA, Quantitative, Real-Time PCR (03/31/2024 3:12 PM EST) Hepatitis C Antibody Nonreactive Nonreactive [facility] Comment:Antibodies to HCV no t detected; does not exclude early acuteHCV infection. Blood Venous blood specimen / Unknown 03/31/2024 3:12 PM EST 03/31/2024 3:54 PM EST Result [facility] Cande Tolentino NP LAB BLOOD ORDERABLES Final Resul t Performing Organization Address [facility] Co de Phone Number [facility] [address] [place] [phone] * RPR (Monitor) with Reflex to??Titer (03/31/2024 3:12 PM EST) RPR (Monitor) w/Refl Titer NON-REACTI VE NON-REACT NAZARIO [facility] Comment:THIS TEST WAS PERFOR MED AT:[facility] [place] [phone] FAIR MD Rapid Plasma Reagin Ab Titer TNP [facility] Blood Venous blood specimen / Unknown 03/31/2024 3:12 PM EST 03/31/2024 3:54 PM EST Cande Tolentino NP LAB BLOOD ORDERABLES Final Resul t Performing Organization Address [facility]/ZIP Co de Phone Number [facility] [address] [place] [phone] * HIV-1/2 Antigen and Antibodies, Fourth Generation, with Reflexes (03/31/2024 3:12 PM EST) HIV AB/AG Nonreactive Nonreactive [facility] Comment:HIV-1 p24 Ag and/or HIV-1/HIV-2 Ab not detected.A test result that is nonreactive does not exclude thepossibility of exposure to or infection with HIV-1 and/orHIV-2. Nonreactive results in this assay for individualswith prior exposure to HIV-1 and/or HIV-2 may be due toantigen and antibody levels that are below the limit ofdetection of this assay.The [employer]ine[employer] HIV Ag/Ab Combo assay result andsupplemental assay results should be interpreted inconjunction with the patient's clinical presentation,history and other laboratory results. If the results areinconsistent with clinical evidence, additional testing issuggested to confirm the result. Blood Venous blood specimen / Unknown 03/31/2024 3:12 PM EST 03/31/2024 3:54 PM EST us Cande Tolentino NP LAB BLOOD ORDERABLES Final Resul t [facility] [address] [place] [phone] * Hemoglobin A1c (03/31/2024 3:12 PM EST) Hemoglobin A1c 5.8 <6.0 % [facility] Comment:Hemoglobin A1C Refer ence Range Adults: 4.8 - 6.0 % Non diabetic: < 6.0 % Goal: < 7.0 %Additional Action Suggested: > 8.0 %Note: Hemoglobin A1c results are invalid for patients with abnormal amounts of HbF. Blood transfusions may impact the HbA1c concentration in the patient sample. Estimated Average Glucose 120 mg/dL [facility] Comment:eAG = Estimated ave rage glucose which is %A1C expressed asaverage glucose, using the formula of the S2W-GzofxsqKdgzgnr Glucose study (ADAG), Diabetes Care, Vol.31,#8,2007 Blood Venous blood specimen / Unknown 03/31/2024 3:12 PM EST 03/31/2024 3:54 PM EST us Cande Tolentino CASE MGR LAB BLOOD ORDERABLES Final Resul t Performing Organization Address [facility] Co de Phone Number [facility] [address] [place] [address] [phone] * Lipid Panel, Standard (03/31/2024 3:12 PM EST) Triglycerides 72 <150 mg/dL [facility] Comment:Desirable Triglyceri de: less than 150 mg/dLBorderline High Triglyceride 150-199 mg/dLHigh Triglyceride: 200-499 mg/dLVery High Triglyceride: greater than or equal to 5OO mg/dL Cholesterol 126 <200 mg/dL [facility] Comment:Desirable Cholestero l: less than 200 mg/dLBorderline High Cholesterol: 200-239 mg/dLHigh Cholesterol: greater than 239 mg/dL LDL Cholesterol Calculated 67 <100 mg/dL [facility] Comment:Desirable LDL: less than 100 mg/dLNear Optimal/Above Optimal LDL: 110- 129 mg/dLBorderline High LDL: 130-159 mg/dLHigh LDL: 160-189 mg/dLVery High LDL: greater than or equal to 190 mg/dL HDL Cholesterol 45 >40 mg/dL [facility] Comment:Desirable HDL: great er than 40 mg/dL Note: This HDL assay may give artificially low results in patients with liver disease. Blood Venous blood specimen / Unknown 03/31/2024 3:12 PM EST 03/31/2024 3:54 PM EST us Cande Tolentino NP LAB BLOOD ORDERABLES Final Resul t Performing Organization Address [facility] Co de Phone Number [facility] [facility] [address] [place] [address] [phone] * Image-Guided Pap with Age-Based Screening??with CT/NG,??Trichomonas (02/03/2023 10:58 AM EDT) Trichomonas (NAAT) NOT DETECTED NOT DETECTED [facility] Comment:The analytical perfo rmance characteristics of thisassay have been determined by [employer]. Themodifications have not been cleared or approved bythe FDA. This assay has been validated pursuant to theCLIA regulations and is used for clinical purposes.For additional information, please refer tohttp://education.CellPly/faq/Trichomonastma(This link is being provided for information/educational purposes only.)THIS TEST WAS PERFORMED AT:[facility] [place] [phone] FAIR MD CTNG Ref Lab NOT DETECTED NOT DETECTED [facility] NG Ref Lab NOT DETECTED NOT DETECTED [facility] 02/03/2023 10:5 8 AM EDT 02/04/2023 7:20 AM EDT us Kenisha THAKKAR LAB CYTOLOGY ORDERABLES F inal Result [facility] [address] [place] [address] [phone] from Last 3 Months or Most Recently Relevant to Health Maintenance Care Teams Radiotelephone Technical Operator Relationship Specialty Start Date End Date Cande Tolentino NP [address] [place] [address] PCP - General Family Medicine 12/29/23
--- OUTSIDE RECORDS SUMMARY | 2024-06-27 15:23 | XMS_ITS | Encounter Summary ---
Author Organization [employer] Address [address] [facility] 7 [place] [address] Care Team Providers Care House Supervisor Name Role Phone Cande Tolentino NP Primary Care Provider [phone] Reason for Visit * Reason Onset Date Comments Med Refill 12/30/2023 Encounter Details Date Type Department Care Team (Late st Contact Info) Description 12/30/2023 Refill [facility] [address] [place] [address] Rhonda Mejia FNP [address] [place] [address] Hypertension, unspecified type Social History Tobacco Use Types Packs/Day Years [...] with others, in a hotel, in a chcf, living outside on the street, on a [...] as of this encounter Visit Diagnoses Diagnosis Hypertension, unspecified type documented in this encounter Additional Health Concerns Assessment Noted Time PHQ-9 Depression Total Score: 20 024 2:33 PM EST documented as of this encounter Care Teams House Supervisor Relationship Specialty Start Date End Date Cande Tolentino NP [address] [place] [address] PCP - General Family Medicine 12/29/23 documented as of this encounter
--- OUTSIDE RECORDS SUMMARY | 2024-06-27 15:23 | XMS_ITS | Encounter Summary ---
Author Organization [employer] Address 75 [facility] 7 [place] [address] Care Team Providers Care Statistics Intern Name Role Phone Rhonda Mejia Primary Care Provider [phone] Cande Tolentino NP Primary Care Provider [phone] Encounter Details Date Type Department Care Team ([facility] st Contact Info) Description 02/05/2023 Telephone [facility] MEDICINE [address] [place] [address] Rhonda Mejia FNP [address], [place] [phone] Social History Tobacco Use Types Packs/Day Years Used Date Smoking Tobacco: Former Cigarettes Passive Smoke Exposure: Current Smokeless Tobacco: Never Alcohol Use Standard Drinks/Week Comments Never 0 (1 standard drink = 0.6 oz pur e alcohol) Depression Answer Date Recorded Patient Health Questionnaire-9 Score 14 09/25/2022 Housing Stability Answer Date Recorded What is your housing situation today? I do not have housing (Staying with others, in a hotel, in a snf, living outside on the street, on a [...] Answer Date Recorded Patient Health Questionnaire-2 Score 3 09/25/2022 Comments No Sex and Gender Information Value [...] Assessment Noted Time PHQ-9 Depression Total Score: 14 023 2:16 PM EDT documented as of this encounter Care Teams Statistics Intern Relationship Specialty Start Date End Date Rhonda Mejia FNP [address] [place] [address] PCP - General Family Medicine 08/19/22 12/28/23 Cande Tolentino NP [address] [place] [address] PCP - General Family Medicine 12/29/23 documented as of this encounter
--- OUTSIDE RECORDS SUMMARY | 2024-06-27 15:23 | XMS_ITS | Encounter Summary ---
Author Organization [employer] Address 75 [facility] 7 [place] [address] Care Team Providers Care Cat Swamper Name Role Phone CamCande sanchez PAULETTE Primary Care Provider [phone] Encounter Details Date Type Department Care Team ([facility] st Contact Info) Description 06/27/2024 Orders Only GENERIC EXTERNAL DATA DEPARTMENT Provider, Generic External Data Social History Tobacco Use Types Packs/Day Years [...] with others, in a hotel, in a mcc, living outside on the street, on a [...] Procedure Name Priority Date/Time Associated Diagnosis Comments SARS COV2/INFLUENZA A/B AND RSV RNA QL NAAT Routine 06/27/2024 12:40 PM EST CBC WITH AUTO DIFFERENTIAL Routine 06/27/2024 12:40 PM EST HCG, TOTAL, QN Routine 06/27/2024 12:40 PM EST COMPREHENSIVE METABOLIC PANEL Routine 06/27/2024 12:[address] HEAD WO CONTRAST Routine 06/27/2024 1 2:24 PM EST documented in this encounter Results * SARS-CoV-2 RNA, Influenza A/B, and RSV RNA, Ql NAAT (06/27/2024 12:40 PM EST) Influenza A PCR NEGATIVE Negative [facility] Influenza B PCR NEGATIVE Negative [facility] Resp Syncy Virus RNA Qual PCR NEGATIVE Negative [facility] SARS COV2 PCR NEGATIVE Negative [facility] Comment:All test results mus t be [...] use by authorized laboratories.Testing performed on the [employer] GeneXpert utilizingreal-time RT-PCR.All SARS CoV2 and positive influenza A/B results arereported to [facility]. 06/27/2024 12:4 0 PM EST 06/27/2024 12:43 PM EST Generic External Data Provider LAB MICROBIOLOGY - GENERAL ORDERABLES Final Result Performing Organization Address [facility] Co de Phone Number [facility] [address] [place] [phone] * hCG, Total, Quantitative (06/27/2024 12:40 PM EST) HCG Quantitative <2 mIU/mL [facility] Comment:Weeks post LMP Appro ximate hCG(Last Menstrual Period) Range (mIU/ml)3 - 4 weeks 9 - 1304 - 5 weeks 75 - 2,6005 - 6 weeks 850 - 20,8006 - 7 weeks 4000 - 100,2007 - 12 weeks 11,500 - 289,13797 - 16 weeks 18,300 - 137,49335 - 29 weeks (2nd trimester) 1,400 - 53,64859 - 41 weeks (3rd trimester) 940 - 60,000The Marshall B- hCG assay is used for the early detection ofpregnancy; it cannot be used to diagnose any conditionunrelated to . If a B-hCG level is not supportedby the clinical evidence, results should be confirmed by analternative method (qualitative urine hCG, for example). 06/27/2024 12:4 0 PM EST 06/27/2024 12:43 PM EST Generic External Data Provider LAB BLOOD ORDERAB LES Final Result Performing Organization Address [facility] Co de Phone Number [facility] [address] [place] [phone] * (ABNORMAL) Comprehensive Metabolic Panel (06/27/2024 12:40 PM EST) Sodium 142 135 - 145 mmol/L [facility] Potassium 4.2 3.3 - 5.1 mmol/L [facility] Chloride 110(H) 96 - 108 mmol/L [facility] Carbon Dioxide 23 22 - 29 mmol/L [facility] Anion Gap 13 12 - 20 [facility] Urea Nitrogen (BUN) 6(L) 9 - 16 mg/dL [facility] Creatinine, Serum 0.68 0.5 - 1.4 mg/dL [facility] Creatinine Clr Calc Pharmacy 137.4 [facility] Comment:Provided height and weight: 152.4 cm,113.398 kg.eGFR (calculated from the MDRD study equation) and eCrCl(calculated from the Cockcroft-Gault equation) are based ondifferent parameters and may not yield comparable results.If eCrCl result is absurd, please check patient'sheight/weight. Estimated Glomerular Filt Rate >60 [facility] Comment:Chronic Kidney Disea se: Estimated GFR < 60 mL/min/1.98u0Zwtyyf Kidney Disease: Estimated GFR < 15 mL/min/1.73m2 Glucose 105 60 - 115 mg/dL [facility] Calcium 9.0 8.4 - 10.2 mg/dL [facility] Bilirubin, Total 0.2 0.0 - 1.0 mg/dL [facility] Aspartate Amino Transferase 25 5 - 31 U/L [facility] Alanine Aminotransferase 18 0 - 31 U/L [facility] Total Protein 8.1(H) 6.5 - 8.0 g/dL [facility] Albumin Level 3.9 3.5 - 5.0 g/dL [facility] Alkaline Phosphatase 66 39 - 117 U/L [facility] 06/27/2024 12:4 0 PM EST 06/27/2024 12:43 PM EST us Generic External Data Provider LAB BLOOD ORDERAB LES Final Result [facility] [address] [place] [address] [phone] * (ABNORMAL) CBC auto differential (06/27/2024 12:40 PM EST) White Blood Count 6.0 4.8 - 10.8 X10*3/uL [facility] Red Blood Count 5.43 4.20 - 5.50 X10*6/uL [facility] Hemoglobin 12.0 12.0 - 16.0 g/dl [facility] Hematocrit 37.5 37.0 - 47.0 % [facility] Mean Corpuscular Volume 69.1(L) 80.0 - 98.0 fL [facility] Mean Corpuscular Hemoglobin 22.1(L) 27.0 - 33.0 pg [facility] Mean Corpuscular HGB Conc 32.0 31.0 - 35.0 g/dl [facility] Red Cell Distribution Width 15.9 11.0 - 16.0 % [facility] Platelet Count 344 160 - 400 X10*3/uL [facility] Mean Platelet Volume 10.3 9.4 - 12.3 fL [facility] Neutrophils Percent Auto 56.1 45 - 73 % [facility] Imm Gran Pct Auto 0.2 0.0 - 0.4 % [facility] Lymphocytes Percent Auto 25.4 20 - 40 % [facility] Monocytes Percent Auto 10.8 2 - 11 % [facility] Eosinophils Percent Auto 7.3(H) 0 - 4 % [facility] Basophils Percent Auto 0.2 0 - 2 % [facility] NRBC Pct Auto 0.0 0.0 - 0.2 /100WBC [facility] Neutrophils Absolute Auto 3.4 2.0 - 8.3 x10*3/uL [facility] Imm Gran Abs Auto 0.01 0.00 - 0.03 X10*3/uL [facility] Lymphocytes Absolute Auto 1.5 1.2 - 4.9 X10*3/uL [facility] Monocytes Absolute Auto 0.7 0.1 - 1.2 X10*3/uL [facility] Eosinophils Absolute Auto 0.4 0.0 - 0.4 X10*3/uL [facility] Basophils Absolute Auto 0.0 0.0 - 0.2 X10*3/uL [facility] NRBC Abs Auto 0.000 0.0 - 0.012 X10*3/uL [facility] 06/27/2024 12:4 0 PM EST 06/27/2024 12:43 PM EST us Generic External Data Provider LAB BLOOD ORDERAB LES Final Result [facility] [address] [place] [address] [phone] * CT Head w/o Contrast (06/27/2024 12:24 PM EST) Anatomical Region Laterality Modality Head, Neck Computed Tomogra phy 06/27/2024 12:2 4 PM EST Narrative 06/27/2024 1:17 PM EST ? [facility] ?[address] ?[place] [address] ? CT Scan Report ? Signed ? Patient: Rosalind Rajan ?MR#: [id number] ?? [id number] ? : 1995 ?Acct:[id number] ? Age/Sex: 29 / F ?ADM Date: 06/27/24 ? Loc: HO.ED ? Attending Dr: ? Ordering Physician: Kristin Kelley ?? Date of Service: 06/27/24 ?? Procedure(s): CT head/brain wo IV con ?? Accession Number(s): [id number] ? cc: Cande Tolentino GOLF SUPERINTENDENT; Kristin Kelley ? Report Number: ?? [id number]: Total DLP = ??684.00 mGy-cm ?? EXAMINATION: [...] Pascual MD ??06/27/2024 01:14 PM ?? EST ? Dictated By: ?Carlitos Goldstein MD ? Signed By: ?<Electronically signed by Carlitos Mendez MD in OV> ? 06/27/24 1314 ? DD/ 1224 ? TD/TT: 06/27/24 1246 ? Python Programmer: ? Procedure Note Smitha, Tasneem - 06/27/[address] [place] [address] [address] Scan Report Signed Patient: Jalen Rajan#: [id number] : 1995Acct:[id number] Age/Sex: 29 FADM Date: 06/27/24 Loc: HO.ED Attending Dr: Ordering Physician: Kristin Kelley Date of Service: 06/27/24 Procedure(s): CT head/brain wo IV con Accession Number(s): [id number] cc: Cande Tolentino GOLF SUPERINTENDENT; Kristin Kelley Report Number: [id number]: Total DLP = 684.00 mGy-cm EXAMINATION: CT [...] 06/27/24 1314 DD/ 1224 TD/TT: 06/27/24 1246 Python Programmer: [facility] External Provider IMG CT PROCEDURES Final Result documented in this encounter Visit Diagnoses Not on filedocumented in this encounter Additional Health Concerns Assessment Noted Time PHQ-9 Depression Total Score: 19 024 2:03 PM EST documented as of this encounter Care Teams Cat Swamper Relationship Specialty Start Date End Date Cande Tolentino NP [address] [place] [address] PCP - General Family Medicine 12/29/23 documented as of this encounter
--- OUTSIDE RECORDS SUMMARY | 2024-06-27 15:23 | XMS_ITS | Clinical Summary ---
Author Organization [facility] Address [address] [place] [address] Care Team Providers Care Shipper/Receiver Name Role Phone Naty Bravo APRN Primary Care Provider + Allergies No known active allergies Medications Medication Sig Dispensed Refills Start Date End Date Status vitamin with iron and folic acid ( PLUS) 27-1 MG Tab Take 1 tablet by mouth daily. Active ibuprofen (MOTRIN) 800 mg tabletIndications:M enstrual cramps Take 1 tablet (800 mg total) by mouth 4 times daily (every 6 hours) as needed (menstrual cramps). 30 tablet 04/21/2020 Active famotidine (PEPCID) 10 MG tablet Take 1-2 tablets (10-20 mg total) by mouth 2 (two) times a day as needed for indigestion or heartburn. 30 tablet 11/11/2020 Active amoxicillin-clavula isabell (AUGMENTIN) 875-125 MG per tabletIndications:L eft otitis media, unspecified otitis media type Take 1 tablet by mouth 2 (two) times a day. 14 tablet 03/12/2021 Active fluticasone (FloNASE) 50 mcg/spray nasal sprayIndications:Le ft otitis media, unspecified otitis media type 2 sprays into each nostril daily. 1 each 03/12/2021 Active benzonatate (TESSALON) 200 MG capsuleIndications: Left otitis media, unspecified otitis media type Take 1 capsule (200 mg total) by mouth 3 (three) times a day as needed for cough. 20 capsule 03/12/2021 Active Active Problems Problem Noted Date Diagnosed Date 01/03/2018 Alpha thalassemia trait 10/14/2017 Overview (10/14/2017): ?Alpha thalassemia trait vs iron deficieny anemia Obesity affecting in second trimester 10/14/2017 Overview (10/14/2017): BMI=43 Immunizations Name Administration Dates Next Due Rho (D) Immune Globulin 02/23/2018(Deferred: - p t rh+) Tdap 02/23/2018(Deferred: - received during PNC),12/22/2017 Social History Tobacco Use Types Packs/Day Years Used Date Smoking Tobacco: Former Cigarettes Q uit: 06/2017 Smokeless Tobacco: Never Alcohol Use Standard Drinks/Week Comments No 0 (1 standard drink = 0.6 oz pur e alcohol) Sex and Gender Information Value Date Recorded Sex Assigned at Not on file Gender Identity Not on file Sexual Orientation Not on file Last Filed Vital Signs Vital Sign Reading Time Taken Comments Blood Pressure 124/87 03/12/2021 9:17 AM EST Pulse 101 03/12/2021 9:17 AM EST Temperature 36.4 ??C (97.5 ??F) 03/12/2021 9:17 AM ES T Respiratory Rate 16 03/12/2021 9:17 AM EST Oxygen Saturation 99% 03/12/2021 9:17 AM EST Inhaled Oxygen Concentration - - Weight 108 kg (238 lb) 02/20/2018 11:00 AM EDT Height 154.9 cm (5' 1 ) 02/20/2018 11:00 AM EDT Body Mass Index 44.97 02/20/2018 11:00 AM EDT Plan of Treatment Health Maintenance Due Date Last Done Comments Hepatitis C Virus Screening 1995 Hepatitis B Vaccines (1 of 3 - 19+ 3-dose series) 2012 Pap Smear (Ages 21-65) 2014 Influenza Vaccine 11/25/2023 COVID-19 Vaccine (3 - 2023-2 5 season) 2023 10/02/2020, 09/04/2020 DTaP/Tdap/Td Vaccines (2 - T d or Tdap) 12/23/2027 12/22/2017 HIV Screening Completed 12/07/2017, 08/06/2017 HPV Vaccines Aged Out No longer eligi ble based on patient's age to complete this topic Pneumococcal Vaccine: Pediatric (0-5 Years) and At-Risk Patients (6 to 49 Years) Aged Out No longer eligible b ased on patient's age to complete this topic Procedures Procedure Name Priority Date/Time Associated Diagnosis Comments HIV 1/2 AG/AB CMIA REFLEX TO CONFIRMATION Routine 12/07/2017 from Last 3 Months or Most Recently Relevant to Health Maintenance Results * HIV 1/2 Ag/Ab CMIA Reflex to Confirmation (12/07/2017) HIV 1/2 Ag/Ab CMIA Negative [facility] Blood specimen (specimen) Blood specimen / Unknown External Provider LAB BLOOD ORDERABLE S Performing Organization Address City/State/[facility] Co de Phone Number [facility] from Last 3 Months or Most Recently Relevant to Health Maintenance Advance Directives * Full Code (Latest Code Status on File) Date Activated Date Inactivated Comments 02/21/2018 6:48 PM 02/25/2018 1:21 PM * Full Code Date Activated Date Inactivated Comments 02/20/2018 10:17 AM 02/21/2018 6:48 PM * Full Code Date Activated Date Inactivated Comments 01/03/2018 8:55 AM 02/20/2018 10:15 AM Care Teams Shipper/Receiver Relationship Specialty Start Date End Date Naty Bravo APRN [address] [place] [phone] PCP - General Adult Health - PA/APNP/INSURANCE ACCOUNT SPECIALIST/PARAKEET RAISER 08/10/20
--- OUTSIDE RECORDS SUMMARY | 2024-06-27 15:23 | XMS_ITS | Encounter Summary ---
Author Organization [employer] Address [address] [facility] 7 [place] [address] Care Team Providers Care Warehouse Receiving Clerk Name Role Phone Rhonda Mejia Primary Care Provider [phone] Cande Tolentino NP Primary Care Provider [phone] Reason for Visit * Reason Onset Date Comments Med Refill 05/04/2023 Encounter Details Date Type Department Care Team (Late st Contact Info) Description 05/04/2023 Refill [facility] MEDICINE [address] [place] [address] Rhonda Mejia FNP [address], [place] [phone] Gastroesophageal reflux disease without esophagitis Social History Tobacco Use Types Packs/Day Years Used Date Smoking Tobacco: Some Days Cigarettes Passive Smoke Exposure: Current Smokeless Tobacco: Never Alcohol Use Standard Drinks/Week Comments Never 0 (1 standard drink = 0.6 oz pur e alcohol) Depression Answer Date Recorded Patient Health Questionnaire-9 Score 14 09/25/2022 Housing Stability Answer Date Recorded What is your housing situation today? I do not have housing (Staying with others, in a hotel, in a skilled nursing, living outside on the street, on a [...] as of this encounter Visit Diagnoses Diagnosis Gastroesophageal reflux disease without esophagitis Esophageal reflux documented in this encounter Additional Health Concerns Assessment Noted Time PHQ-9 Depression Total Score: 14 023 2:16 PM EDT documented as of this encounter Care Teams Warehouse Receiving Clerk Relationship Specialty Start Date End Date Rhonda Mejia FNP [address] [place] [address] PCP - General Family Medicine 08/19/22 12/28/23 Cande Tolentino NP [address] [place] [address] PCP - General Family Medicine 12/29/23 documented as of this encounter
[2024-06-27 19:15] VITALS: BP 126/83; PULSE 98; RESP 16; TEMP 36.6; O2SAT 100
--- NOTE | 2024-06-27 19:18 | PC.NURSE ---
pt has hives to her arms adwoa, face, ears, thighs adwoa and itchy feet last night. pt states she has pressure to her head when bending down, or when she breaths in too deep and at rest.
[2024-06-27] MEDS: Ketorolac Tromethamine 30 MG/ML VIAL 15 MG IM (19:52)
[2024-06-27] MEDS: diphenhydrAMINE HCL 25 MG CAPSULE PO (19:53)
[2024-06-27] MEDS: Acetaminophen 325 MG TABLET 650 MG PO (19:53)
[2024-06-27] MEDS: Famotidine 20 MG TABLET PO (19:53)
[2024-06-27] MEDS: predniSONE 20 MG TABLET 60 MG PO (19:54)
[2024-06-27 19:57] VITALS: BP 126/83; PULSE 98; RESP 16; TEMP 36.6; O2SAT 100
== END 2024-06-27 19:59 | disposition home or self-care (01) ==
PROVIDERS: Physician Assistant Medical; Emergency Provider Student in an Organized Health Care Education/Training Program; PCP Nurse Practitioner Family
DX: R51.9 Headache, unspecified (principal); L50.0 Allergic urticaria; M79.10 Myalgia, unspecified site; F17.210 Nicotine dependence, cigarettes, uncomplicated; Z91.148 Patient's other noncompliance with medication regimen for other reason; Z79.899 Other long term (current) drug therapy; Z03.818 Encounter for observation for suspected exposure to other biological agents ruled out
CPT/HCPCS: 0241U; 70450; 80053; 84702; 85025; 96372; 99284; J1885

== ENCOUNTER → 2024-06-27 12:19 | Outpatient (BNV) | payer SELFPAY | PROVIDERS: PCP Nurse Practitioner Family; Visit Provider Radiology Diagnostic Radiology | DX: R51.9 Headache, unspecified (principal) | CPT/HCPCS: 70450 ==

== ENCOUNTER 2024-08-02 14:19 | Outpatient (AMB) | payer MEDICAID, SELFPAY ==
--- NOTE | 2024-08-02 14:20 | A.OFFVIS_ITS ---
Intake Visit Reasons: Diverticulitis Intake Note: Rosalind presents as a video call today for Diverticulitis. CC: States that she was diagnosed with Diverticulitis in the hospital and that her normal is having pains in the stomach, constipation and diarrhea and says she also has some reflux. Allergies No Known Allergies [No Known Allergies*] Allergy (Verified 08/02/24 14:20) HPI Comments Details: 29 y.o F with PMH of recent uncomplicated diverticulitis x 2 in Feb 2024. Both episodes were uncomplicated. Was seen by surg in Jan 2024. Currently reports persistent dull discomfort in left side all the time but dominique after eating. Irrespective of the type of food. This is assoc wth diarrhea with up to 3-4 BMs per day which are very loose and watery. Baseline prior t diverticulosis was formed BMs. No blood in stool. No fam hx of CRC in FDR. PFSH Medical History COVID-19 Urinary tract infection HTN (hypertension) with goal to be determined Morbid obesity No pertinent past medical history Surgical History Hx of wisdom tooth extraction History of wisdom tooth extraction, class I edentulism History of laparoscopic cholecystectomy Family History Mother Paroxysmal dystonia Diabetes Father Family history unknown Daughter No problems noted. Social History Household Members: Family and Children Housing: Apartment Do you presently have visiting nurse or other home services: No Alcohol intake: never Patient Tobacco Use Status: Current someday Tobacco user Tobacco use type: Cigarette Cigarette Packs Per Day: 0.5 Cigarettes Per Day: 7 e-Cigarette/Vaping Use: Never Used Substance Use Type: Marijuana service: No Review of Systems Const All systems reviewed & are unremarkable except as noted in HPI and below Physical Exam Vital Signs: Video visit: No acute distress No icterus noted No facial asymmetry Speaking in full sentences Telehealth Telehealth Telehealth [facility]: [facility] Location of provider rendering services: practice address Location of patient: address on file Patient Identification confirmed using: Name, : Yes Telehealth method: video Patient verbally consented to treatment: Yes Patient verbally consented to billing insurance company: Yes Patient informed of any privacy concerns related to visit: Yes Minutes spent on Phone/Video with Pt.: 16 Assessment & Plan Assessment & Plan (1) Diverticulosis: Code(s): K57.90 - Diverticulosis of intestine, part unspecified, without perforation or abscess without bleeding Category: Medical (2) History of diverticulitis: Code(s): Z87.19 - Personal history of other diseases of the digestive system Category: Medical (3) Change in bowel habit: Code(s): R19.4 - Change in bowel habit Category: Medical Plan Pt with hx of uncomplicated diverticulitis x 2 last year now with watery diarrhea. DDx include SCADD, smolerding diverticulitis, post infectious IBS, microscopic colitis, IBD. Plan: - Diagnostic colo to be set up. - PEG prep Rxed and instructions reviewed. Portal msg sent re instructions as well - Fiber intake - EtOH and red meat in moderation FOllow up after colo Medications: New peg 3350-electrolytes 236-22.74-6.74 -5.86 gram (Golytely) as per split prep instructions, until fecal effluent is clear 240 mL PO Q10M 4,000 mL 0RF colonoscopy Coding Level of Care Code Tele New Pt Level 4 (24225) Diagnoses Diverticulosis K57.90 History of diverticulitis Z87.19 Change in bowel habit R19.4
--- OUTSIDE RECORDS SUMMARY | 2024-08-02 16:36 | XMS_ITS | Encounter Summary ---
Author Organization [facility] Address [address] [place] [address] Care Team Providers Care Manager Environmental Affairs Name Role Phone Unknown Primary Care Provider [phone] Naty Bravo APRN Primary Care Provider + Encounter Details Date Type Department Care Team (Late st Contact Info) Description 07/24/2020 Scanned Document [facility] [address] [place] [phone] Primary Care, Scan Social History Tobacco Use [...] on filedocumented in this encounter Care Teams Manager Environmental Affairs Relationship Specialty Start Date End Date Unknown Unknow Provider Address PCP - General 04/21/20 08/09/20 Naty Bravo APRN [address] [place] [phone] PCP - General Adult Health - TREY/JULIO/PAULETTE/PAZ 08/10/20 documented as of this encounter
--- OUTSIDE RECORDS SUMMARY | 2024-08-02 16:36 | XMS_ITS | Clinical Summary ---
Author Organization [facility] Address [address] [place] [address] Care Team Providers Care Die Cleaner Name Role Phone Naty Bravo APRN Primary [...] LAB BLOOD ORDERABLE S Performing Organization Address City/State/[facility] Co de Phone Number [facility] from Last [...] 8:55 AM 02/20/2018 10:15 AM Care Teams Die Cleaner Relationship Specialty Start Date End Date Naty Bravo APRN [address] [place] [phone] PCP - General Adult Health - PA/APNP/VOLUNTEER PATIENT REPRESENTATIVE/INSTANT PRINTER OPERATOR 08/10/20
== END 2024-08-02 15:19 | disposition home or self-care (01) ==
LOC: HO.HGI 14:19
PROVIDERS: PCP Nurse Practitioner Family; Visit Provider Internal Medicine
DX: K57.90 Diverticulosis of intestine, part unspecified, without perforation or abscess without bleeding (principal); Z87.19 Personal history of other diseases of the digestive system; R19.4 Change in bowel habit
CPT/HCPCS: 99204

== ENCOUNTER → 2024-08-02 14:19 | Outpatient (BNVA) | payer MEDICAID, SELFPAY | PROVIDERS: PCP Nurse Practitioner Family; Visit Provider Internal Medicine ==

== ENCOUNTER 2024-09-05 15:11 | Outpatient (REF) | payer MEDICAID, SELFPAY ==
--- OUTSIDE RECORDS SUMMARY | 2024-09-05 16:08 | XMS_ITS | Encounter Summary ---
Author Organization [employer] Address 75 [facility] 7 [place] [address] Care Team Providers Care Licensed Master Social Worker Name Role Phone Cande Tolentino NP Primary Care Provider [phone] Reason for Visit * Reason Onset Date Comments Med Refill 12/30/2023 Encounter Details Date Type Department Care Team ([facility] st Contact Info) Description 12/30/2023 Refill [facility] [address] [place] [address] Rhonda Mejia FNP [address] [place] [address] Hypertension, unspecified type Social History Tobacco Use [...] with others, in a hotel, in a detention, living outside on the street, on a [...] as of this encounter Plan of Treatment Upcoming Encounters Date Type Department Care Team (Late st Contact Info) Description 10/24/2024 3:30 PM EDT Office Visit [facility] [address] [place] [address] Cande Tolentino NP [address] [place] [address] documented as of this encounter Visit Diagnoses Diagnosis Hypertension, unspecified type documented in this encounter Additional Health Concerns Assessment Noted Time PHQ-9 Depression Total Score: 20 024 2:33 PM EST documented as of this encounter Care Teams Licensed Master Social Worker Relationship Specialty Start Date End Date Cande Tolentino NP [address] [place] [address] PCP - General Family Medicine 12/29/23 documented as of this encounter
--- OUTSIDE RECORDS SUMMARY | 2024-09-05 16:08 | XMS_ITS | Encounter Summary ---
Author Organization [employer] Address 75 [facility] 7 [place] [address] Care Team Providers Care Innovation Analyst Name Role Phone Rhonda Mejia Primary Care Provider [phone] Cande Tolentino NP Primary Care Provider [phone] Encounter Details Date Type Department Care Team ([facility] st Contact Info) Description 02/05/2023 Telephone [facility] [address] [place] [address] Rhonda Mejia FNP [address] [place] [address] Social History Tobacco Use Types Packs/Day Years [...] Description 10/24/2024 3:30 PM EDT Office Visit [facility] [address] [place] [address] Cande Tolentino NP [address] [place] [address] documented as of this encounter Visit Diagnoses Not on filedocumented in this encounter Additional Health Concerns Assessment Noted Time PHQ-9 Depression Total Score: 14 023 2:16 PM EDT documented as of this encounter Care Teams Innovation Analyst Relationship Specialty Start Date End Date Rhonda Mejia FNP [address] [place] [phone] PCP - General Family Medicine 08/19/22 12/28/23 Cande Tolentino NP [address] [place] [address] PCP - General Family Medicine 12/29/23 documented as of this encounter
--- OUTSIDE RECORDS SUMMARY | 2024-09-05 16:08 | XMS_ITS | Clinical Summary ---
Author Organization [employer] Address 75 [facility] 7t [place] [address] Care Team Providers Care Pre Certification Specialist Name Role Phone Rajan Cande PAULETTE Primary Care Provider [phone] Allergies No known active allergies Medications * This document contains information received from the source organization and may not represent a complete record from that organization. buPROPion XL (Wellbutrin XL) 150 MG 24 hr tabletIndication s:Depression with anxiety Take 1 tablet (150 mg) by mouth in the morning. Do not crush, chew, or split. 30 tablet 11 4 Active albuterol 108 (90 Base) MCG/ACT inhaler [...] Active Problems Problem Noted Date Diagnosed Date Diarrhea of infectious origin 09/05/2024 Elevated blood pressure reading 03/31/2024 Healthcare maintenance [...] for help PLAN: 1. Follow up with [facility]: Not recommended for follow-up 2. Patient goal [...] Encounters Date Type Department Care Team Description 09/05/2024 2:30 PM EDT Office Visit [facility] [address] [place] [phone] Cande Tolentino NP Diarrhea of infectious origin (Primary Dx); Abdominal pain, unspecified abdominal location 09/05/2024 Travel 09/04/2024 Telephone [facility] [address] [place] [address] Cande Tolentino NP CHART PREP 08/29/2024 Patient Outreach [facility] [address] [place] [address] Cande Tolentino NP Pre-visit Planning (SDOH negative. Tobacco screening negative.) 08/21/2024 Population Health Risk Score [facility] Department [address] [facility] [address] [place] [address] Provider, Population Health Generic 06/27/2024 Orders Only GENERIC EXTERNAL DATA DEPARTMENT Provider, Generic External Data from Last 3 Months Immunizations Name Administration [...] What is your housing situation today? I have lena coburn 08/29/[address] you li ve. Do you have problems with any of the following? None of the above 08/29/2024 Food Insecurity Answer Date Recorded Within the past 12 months, y ou worried that your food would run out before you got money to buy more: Never True 08/29/2024 Within the past 12 months,th e food you bought just didn't last and you didn't have enough money to get more: Never True 09/2024 Transportation Answer Date Recorded In the past 12 months, has l ack of transportation kept you from medical appts, meetings, work or from getting things needed for daily living? No 08/29/2024 Utilities Answer Date Recorded In the past 12 months, has t he electric, gas, oil or water company threatened to shut off services in your home? No 08/29/2024 Depression Answer Date Recorded Patient Health Questionnaire-2 Score 4 03/31/2024 Internet Access Answer Date Recorded Internet Access Q1 Yes 08/29/2024 Internet Access Q2 Not on file 08/29/2024 Comments No Sex and Gender Information Value Date Recorded Sex Assigned at Female 02/23/2022 10:21 AM EDT Legal Sex Female 10:21 AM EDT Gender Identity Female 09/07/2022 8:53 AM EDT Sexual Orientation Straight 09/07/2022 8: 53 AM EDT Last Filed Vital Signs Vital Sign Reading Time Taken Comments Blood Pressure 136/91 09/05/2024 2:32 PM EDT Pulse 100 09/05/2024 2:32 PM EDT Temperature 36.7 ??C (98.1 ??F) 09/05/2024 2:32 PM ED T Respiratory Rate 20 09/05/2024 2:32 PM EDT Oxygen Saturation 98% 09/05/2024 2:32 PM EDT Inhaled Oxygen Concentration - - Weight 118 kg (261 lb) 09/05/2024 2:32 PM EDT Height 152.4 cm (5') 09/05/2024 2:32 PM EDT Body Mass Index 50.97 09/05/2024 2:32 PM EDT Plan of Treatment Upcoming Encounters Date Type Department Care Team (Late st Contact Info) Description 10/24/2024 3:30 PM EDT Office Visit [facility] [address] [place], [place] [phone] Cande Tolentino, PAULETTE [address] [place], [place] [phone] Health Maintenance Due Date Last Done Comments Family Planning (PISQ) 2008 Hepatitis B Vaccines (1 of 3 - 19+ 3-dose series) 2012 Pneumococcal Vaccine: Pediatrics (0 to 5 Years) and At-Risk Patients (6 to 49) Years) (1 of 2 - PCV) 2012 COVID-19 Vaccine ( - 2023-2 5 season) 2023 Influenza Vaccine (#1) 2023 Depression Screening 03/31/2025 03/31/2024, 03/31/2024 Diabetes: Hemoglobin A1C 03/31/2025 024, 09/07/2022 SDOH Screening 08/29/2025 08/29/2024 Alcohol/Substance Use Screening 09/05/2025 09/05/2024 Tobacco Screening 09/05/2025 09/05/2024 Cervical Cancer Screening 02/03/2026 HPV/Cotest 02/03/2026 Pap [...] on patient's age to complete this topic Hepatitis A Vaccines Aged Out No long er eligible based on patient's age to complete [...] CONTRAST Routine 06/27/2024 1 2:24 PM EST HEPATITIS C AB W/REFL TO HCV RNA, QN, PCR Routine 03/31/2024 3:12 PM EST Healthcare maintenance HIV 1/2 ANTIGEN/ANTIBODY, FOURTH GENERATION W/RFL Routine 03/31/2024 3:12 PM EST Healthcare maintenance HEMOGLOBIN A1C Routine 03/31/2024 3:12 PM EST Diverticulitis LIPID PANEL, STANDARD Routine 03/31/2024 3:12 PM EST Healthcare maintenance IMAGE-GUIDED PAP W/AGE BASED SCR,W/CT/NG/TRICH Routine 02/03/2023 10:58 AM EDT Abnormal uterine bleeding Cervical cancer screening Encntr screen for infections w sexl mode of transmiss from Last 3 Months or Most Recently Relevant to Health Maintenance Results * SARS-CoV-2 RNA, Influenza A/B, and RSV RNA, Ql NAAT (06/27/2024 12:40 PM EST) Pathologist [facility] Influenza A PCR NEGATIVE Negative [facility] Influenza B PCR NEGATIVE Negative [facility] Resp Syncy Virus RNA Qual PCR NEGATIVE Negative [facility] SARS COV2 PCR NEGATIVE Negative [facility] Comment:All test results mus t [...] use by authorized laboratories.Testing performed on the [employer] GeneXpert utilizingreal-time RT-PCR.All SARS CoV2 and positive influenza A/B results arereported to [facility]. 06/27/2024 12:4 0 PM EST 06/27/2024 12:43 PM EST Generic External Data Provider LAB MICROBIOLOGY - GENERAL ORDERABLES Final Result [facility] [address] [place] [phone] * (ABNORMAL) CBC auto differential (06/27/2024 12:40 PM EST) Pathologist [facility] White Blood Count 6.0 4.8 - 10.8 X10*3/uL [facility] Red Blood Count 5.43 4.20 - 5.50 X10*6/uL [facility] Hemoglobin 12.0 12.0 - 16.0 g/dl [facility] Hematocrit 37.5 37.0 - 47.0 % [facility] Mean Corpuscular Volume 69.1(L) 80.0 - 98.0 fL [facility] Mean Corpuscular Hemoglobin 22.1(L) 27.0 - 33.0 pg [facility] Mean Corpuscular HGB Conc 32.0 31.0 - 35.0 g/dl [facility] Red Cell Distribution Width 15.9 11.0 - 16.0 % [facility] Platelet Count 344 160 - 400 X10*3/uL [facility] Mean Platelet Volume 10.3 9.4 - 12.3 fL [facility] Neutrophils Percent Auto 56.1 45 - 73 % [facility] Imm Gran Pct Auto 0.2 0.0 - 0.4 % [facility] Lymphocytes Percent Auto 25.4 20 - 40 % [facility] Monocytes Percent Auto 10.8 2 - 11 % [facility] Eosinophils Percent Auto 7.3(H) 0 - 4 % [facility] Basophils Percent Auto 0.2 0 - 2 % [facility] NRBC Pct Auto 0.0 0.0 - 0.2 /100WBC [facility] Neutrophils Absolute Auto 3.4 2.0 - 8.3 x10*3/uL [facility] Imm Gran Abs Auto 0.01 0.00 - 0.03 X10*3/uL [facility] Lymphocytes Absolute Auto 1.5 1.2 - 4.9 X10*3/uL [facility] Monocytes Absolute Auto 0.7 0.1 - 1.2 X10*3/uL [facility] Eosinophils Absolute Auto 0.4 0.0 - 0.4 X10*3/uL [facility] Basophils Absolute Auto 0.0 0.0 - 0.2 X10*3/uL [facility] NRBC Abs Auto 0.000 0.0 - 0.012 X10*3/uL [facility] 06/27/2024 12:4 0 PM EST 06/27/2024 12:43 PM EST us Generic External Data Provider LAB BLOOD ORDERAB LES Final Result [facility] [address] [place] [phone] * hCG, Total, Quantitative (06/27/2024 12:40 PM EST) Pathologist [facility] HCG Quantitative <2 mIU/mL [facility] Comment:Weeks post LMP Appro ximate hCG(Last Menstrual Period) Range (mIU/ml)3 - 4 weeks 9 - 1304 - 5 weeks 75 - 2,6005 - 6 weeks 850 - 20,8006 - 7 weeks 4000 - 100,2007 - 12 weeks 11,500 - 289,61670 - 16 weeks 18,300 - 137,82387 - 29 weeks (2nd trimester) 1,400 - 53,60281 - 41 weeks (3rd trimester) 940 - [...] Provider LAB BLOOD ORDERAB LES Final Result [facility] [address] [place] [phone] * (ABNORMAL) Comprehensive Metabolic Panel (06/27/2024 12:40 PM EST) [facility] Sodium 142 135 - 145 mmol/L [facility] Potassium 4.2 3.3 - 5.1 mmol/L [facility] Chloride 110(H) 96 - 108 mmol/L [facility] Carbon Dioxide 23 22 - 29 mmol/L [facility] Anion Gap 13 12 - 20 [facility] Urea Nitrogen (BUN) 6(L) 9 - 16 mg/dL [facility] Creatinine, Serum 0.68 0.5 - 1.4 mg/dL [facility] Creatinine Clr Calc Pharmacy 137.4 [facility] Comment:Provided height and weight: 152.4 cm,113.398 kg.eGFR (calculated from the MDRD study equation) and eCrCl(calculated from the Cockcroft-Gault equation) are based ondifferent parameters and may not yield comparable results.If eCrCl result is absurd, please check patient'sheight/weight. Estimated Glomerular Filt Rate >60 [facility] Comment:Chronic Kidney Disea se: Estimated GFR < 60 mL/min/1.14i1Nliost Kidney Disease: Estimated GFR < 15 mL/min/1.73m2 Glucose 105 60 - 115 mg/dL [facility] Calcium 9.0 8.4 - 10.2 mg/dL [facility] Bilirubin, Total 0.2 0.0 - 1.0 mg/dL [facility] Aspartate Amino Transferase 25 5 - 31 U/L [facility] Alanine Aminotransferase 18 0 - 31 U/L [facility] Total Protein 8.1(H) 6.5 - 8.0 g/dL [facility] Albumin Level 3.9 3.5 - 5.0 g/dL [facility] Alkaline Phosphatase 66 39 - 117 U/L [facility] 06/27/2024 12:4 0 PM EST 06/27/2024 12:43 PM EST us Generic External Data Provider LAB BLOOD ORDERAB LES Final Result Performing Organization Address City/State/[facility] Co de Phone Number [facility] [address] [place] [phone] * CT Head w/o Contrast (06/27/2024 12:24 PM EST) Anatomical Region Laterality Modality Head, Neck Computed Tomogra phy 06/27/2024 12:2 4 PM EST Narrative 06/27/2024 1:17 PM EST ? [facility] ?[address] ?[place] [address] ? CT Scan Report ? Signed ? Patient: Satinder,Rosalind ?MR#: [id number] ?? [id number] ? : 1995 ?Acct:[id number] ? Age/Sex: 29 / F ?ADM Date: 03/04/25 ? Loc: HO.ED ? Attending Dr: ? Ordering Physician: Kristin Kelley ?? Date of Service: 06/27/24 ?? Procedure(s): CT head/brain wo IV con ?? Accession Number(s): [id number] ? cc: Cande Tolentino NP; Kristin Kelley ? Report Number: ?? [id number]: Total DLP = ??684.00 mGy-cm ?? EXAMINATION: [...] DD/ 1224 ? TD/TT: 06/27/24 1246 ? Blueprint Trimmer: ? Procedure Note [place], Image - 06/27/[address] [address] [place] Scan Report Signed Patient: Jalen Rajan#: [id number] : 1995Acct:[id number] Age/Sex: 29 / FADM Date: 06/27/24 Loc: HO.ED Attending Dr: Ordering Physician: Kristin Kelley Date of Service: 06/27/24 Procedure(s): CT head/brain wo IV con Accession Number(s): [id number] cc: Cande Tolentino MINE PROMOTOR; Kristin Kelley Report Number: [id number]: Total DLP = 684.00 mGy-cm EXAMINATION: CT [...] by: Carlitos Pascual MD 06/27/2024 01:14 PM [facility] Dictated By: Carlitos Goldstein MD Signed By: <Electronically signed by Carlitos Mendez MDin OV> 06/27/24 1314 DD/ 1224 TD/TT: 06/27/24 1246 Blueprint Trimmer: [facility] External Provider IMG CT PROCEDURES Final Result * Hepatitis C Antibody with Reflex to HCV, RNA, Quantitative, Real-Time PCR (03/31/2024 3:12 PM EST) Pathologist [facility] Hepatitis C Antibody Nonreactive Nonreactive [facility] Comment:Antibodies to HCV no t detected; does not exclude early acuteHCV infection. Blood Venous blood specimen / Unknown 03/31/2024 3:12 PM EST 03/31/2024 3:54 PM EST Result [facility] Cande Tolentino NP LAB BLOOD ORDERABLES Final Resul t Performing Organization Address [facility] Co de Phone Number [facility] [address] [place] [phone] * HIV-1/2 Antigen and Antibodies, Fourth Generation, with Reflexes (03/31/2024 3:12 PM EST) Pathologist [facility] HIV AB/AG Nonreactive Nonreactive [facility] Comment:HIV-1 p24 Ag and/or HIV-1/HIV-2 Ab not detected.A test result that is nonreactive does not exclude thepossibility of exposure to or infection with HIV-1 and/orHIV-2. Nonreactive results in this assay for individualswith prior exposure to HIV-1 and/or HIV-2 may be due toantigen and antibody levels that are below the limit ofdetection of this assay.[employer] HIV Ag/Ab Combo assay result andsupplemental assay results should be interpreted inconjunction with the patient's clinical presentation,history and other laboratory results. If the results areinconsistent with clinical evidence, additional testing issuggested to confirm the result. Blood Venous blood specimen / Unknown 03/31/2024 3:12 PM EST 03/31/2024 3:54 PM EST Result [facility] Cande Tolentino NP LAB BLOOD ORDERABLES Final Resul t Performing Organization Address City/[facility] Co de Phone Number [facility] [address] [place] [phone] * Hemoglobin A1c (03/31/2024 3:12 PM EST) Hemoglobin A1c 5.8 <6.0 % [facility] Comment:Hemoglobin A1C Refer ence Range Adults: 4.8 - 6.0 % Non diabetic: < 6.0 % Goal: < 7.0 %Additional Action Suggested: > 8.0 %Note: Hemoglobin A1c results are invalid for patients with abnormal amounts of HbF. Blood transfusions may impact the HbA1c concentration in the patient sample. Estimated Average Glucose 120 mg/dL [facility] Comment:eAG = Estimated ave rage glucose which is %A1C expressed asaverage glucose, using the formula of the A2V-FqnphzcZsqeusm Glucose study (ADAG), Diabetes Care, Vol.31,#8,Nov. 2007 Blood Venous blood specimen / Unknown 03/31/2024 3:12 PM EST 03/31/2024 3:54 PM EST us Cande Tolentino MINE PROMOTOR LAB BLOOD ORDERABLES Final Resul t [facility] [address] [place] [phone] * Lipid Panel, Standard (03/31/2024 3:12 PM EST) Triglycerides 72 <150 mg/dL [facility] Comment:Desirable Triglyceri de: less than 150 mg/dLBorderline High Triglyceride 150-199 mg/dLHigh Triglyceride: 200-499 mg/dLVery High Triglyceride: greater than or equal to 5OO mg/dL Cholesterol 126 <200 mg/dL [facility] Comment:Desirable Cholestero l: less than 200 mg/dLBorderline High Cholesterol: 200-239 mg/dLHigh Cholesterol: greater than 239 mg/dL LDL Cholesterol Calculated 67 <100 mg/dL [facility] Comment:Desirable LDL: less than 100 mg/dLNear Optimal/Above Optimal LDL: 110- 129 mg/dLBorderline High LDL: 130-159 mg/dLHigh LDL: 160-189 mg/dLVery High LDL: greater than or equal to 190 mg/dL HDL Cholesterol 45 >40 mg/dL [facility] Comment:Desirable HDL: great er than 40 mg/dL Note: This HDL assay may give artificially low results in patients with liver disease. Blood Venous blood specimen / Unknown 03/31/2024 3:12 PM EST 03/31/2024 3:54 PM EST us Cande Tolentino MINE PROMOTOR LAB BLOOD ORDERABLES Final Resul t Performing Organization Address [facility] Co de Phone Number [facility] [address] [place] [phone] * Image-Guided Pap with Age-Based Screening??with CT/NG,??Trichomonas (02/03/2023 10:58 AM EDT) Trichomonas (NAAT) NOT DETECTED NOT DETECTED [facility] Comment:The analytical perfo rmance characteristics of thisassay have been determined by [employer]. Themodifications have not been cleared or approved bythe FDA. This assay has been validated pursuant to theCLIA regulations and is used for clinical purposes.For additional information, please refer tohttp://education.Nebo/faq/Trichomonastma(This link is being provided for information/educational purposes only.)THIS TEST WAS PERFORMED AT:[facility] [place] [phone] FAIR MD CTNG Ref Lab NOT DETECTED NOT DETECTED [facility] NG Ref Lab NOT DETECTED NOT DETECTED [facility] 02/03/2023 10:5 8 AM EDT 02/04/2023 7:20 AM EDT us Kenisha Rodas CNM LAB CYTOLOGY ORDERABLES F inal Result Performing Organization Address [facility] Co de Phone Number [facility] [address] [place] [phone] [phone] from Last 3 Months or Most Recently Relevant to Health Maintenance Insurance Care Teams Pre Certification Specialist Relationship Specialty Start Date End Date Cande Tolentino NP [address] [place] [phone] PCP - General Family Medicine 12/29/23
--- OUTSIDE RECORDS SUMMARY | 2024-09-05 16:08 | XMS_ITS | Encounter Summary ---
Author Organization [employer] Address [address] [facility] 7 [place] [address] Care Team Providers Care Battery Container Inspector Name Role Phone Cande Tolentino NP Primary Care Provider [phone] Reason for Visit * Reason Onset Date Comments Hospital Follow-up 02/23/2024 Encounter Details Date Type Department Care Team ([facility] Contact Info) Description 02/23/2024 Telephone [facility] [address] [place] [address] Cande Tolentino NP [address] [place] [address] Hospital Follow-up Social History Tobacco Use Types [...] with others, in a hotel, in a senior care, living outside on the street, on a [...] from pt requesting a HDF appt. Hospital: [facility] Date of admission: 02/18/24 Discharge date: 02/21/24 Diagnosed: diverticulitis and UTI documented in this encounter Plan of Treatment Upcoming Encounters Date Type Department Care Team (Late st Contact Info) Description 10/24/2024 3:30 PM EDT Office Visit [facility] [address] [place] [address] Cande Tolentino NP [address] [place] [address] documented as of this encounter Visit Diagnoses Not on filedocumented in this encounter Additional Health Concerns Assessment Noted Time PHQ-9 Depression Total Score: 20 024 2:33 PM EST documented as of this encounter Care Teams Battery Container Inspector Relationship Specialty Start Date End Date Cande Tolentino NP [address] [place] [address] PCP - General Family Medicine 12/29/23 documented as of this encounter
--- OUTSIDE RECORDS SUMMARY | 2024-09-05 16:08 | XMS_ITS | Encounter Summary ---
Author Organization [employer] Address [address] [facility] 7t [place] [address] Care Team Providers Care E Learning Specialist Name Role Phone Cande Tolentino NP Primary Care Provider [phone] Encounter Details Date Type Department Care Team ([facility] Contact Info) Description 09/05/2024 2:30 PM EDT Office Visit [facility] MEDICINE [address] [place] [address] Cande Tolentino NP [address] [place] [address] Diarrhea of infectious origin (Primary Dx); Abdominal pain, unspecified abdominal location Social History Tobacco Use Types Packs/Day Years [...] AM EDT documented as of this encounter Last Filed Vital Signs Vital Sign Reading [...] Mass Index 50.97 09/05/2024 2:32 PM EDT documented in this encounter Plan of Treatment Upcoming Encounters Date Type Department Care Team (Late st Contact Info) Description 10/24/2024 3:30 PM EDT Office Visit [facility] MED[facility]INE [address] [place], [place] [phone] Cande Tolentino NP [address] [place] [address] Scheduled Orders Name Type Priority Associated Diagnoses Orde r Schedule Amylase Lab Routine Diarrhea of infectious origin Expected: 09/05/2024 (Approximate), Expires: 09/05/2025 Celiac panel reflex to titer Lab Routine Diarrhea of infectious origin Expected: 09/05/2024 (Approximate), Expires: 09/05/2025 Clostridium difficile EIA Microbiology Routine Diarrhea of infectious origin Expected: 09/05/2024 (Approximate), Expires: 09/05/2025 Comprehensive metabolic panel Lab Routine Diarrhea of infectious origin Expected: 09/05/2024 (Approximate), Expires: 09/05/2025 Cryptosporidium antigen, stool Lab Routine Diarrhea of infectious origin Expected: 09/05/2024 (Approximate), Expires: 09/05/2025 Fecal fat, quantitative Lab Routine Diarrhea of infectious origin Expected: 09/05/2024 (Approximate), Expires: 09/05/2025 Fecal leukocytes Lab Routine Diarrhea of infectious origin Expected: 09/05/2024 (Approximate), Expires: 09/05/2025 Occult blood x 1, stool Lab Routine Diarrhea of infectious origin Expected: 09/05/2024 (Approximate), Expires: 09/05/2025 Giardia antigen Lab Routine Diarrhea of infectious origin Expected: 09/05/2024 (Approximate), Expires: 09/05/2025 Ova and parasite screen Microbiology Routine Diarrhea of infectious origin Expected: 09/05/2024 (Approximate), Expires: 09/05/2025 Stool culture Microbiology Routine Diarrhea of infectious origin Expected: 09/05/2024 (Approximate), Expires: 09/05/2025 TSH Lab Routine Diarrhea of infectious origin Expected: 09/05/2024 (Approximate), Expires: 09/05/2025 CBC auto differential Lab Routine Abdominal pain, unspecified abdominal location Expected: 09/05/2024 (Approximate), Expires: 09/05/2025 Sed Rate by Modified W[place]gren Lab Routine Abdominal pain, unspecified abdominal location Expected: 09/05/2024, Expires: 09/05/2025 C-reactive Protein Lab Routine Abdominal pain, unspecified abdominal location Expected: 09/05/2024 (Approximate), Expires: 09/05/2025 documented as of this encounter Visit Diagnoses Diagnosis Diarrhea of infectious origin- Primary Diarrhea of presumed infectious origin Abdominal pain, unspecified abdominal location documented in this encounter Additional Health Concerns Assessment Noted Time PHQ-9 Depression Total Score: 19 12/2 024 2:03 PM EST documented as of this encounter Care Teams E Learning Specialist Relationship Specialty Start Date End Date Cande Tolentino NP [address] [place] [id number] PCP - General Family Medicine 12/29/23 documented as of this encounter
--- OUTSIDE RECORDS SUMMARY | 2024-09-05 16:08 | XMS_ITS | Encounter Summary ---
Author Organization [employer] Address [address] [facility] 7 [place] [address] Care Team Providers Care Metropolitan Editor Name Role Phone Cande Tolentino NP Primary Care Provider [phone] Reason for Visit * Reason Onset Date Comments CHART PREP 09/04/2024 Encounter Details Date Type Department Care Team ([facility] Contact Info) Description 09/04/2024 Telephone [facility] MEDICINE [address] [place] [address] Cande Tolentino NP [address] [place] [address] CHART PREP Social History Tobacco Use Types Packs/Day Years [...] encounter Miscellaneous Notes * Telephone Encounter - Adithya Urban [place] - 09/04/2024 3:34 PM EDT Chart Prep Labs: done from 03/31/24 Images: not applicable Referrals: not applicable Vaccines due: PCV20 and Hep B Screenings: LMP Overdue care gaps: SBIRT, JUANA-7, Disability screen, and Tobacco documented in this encounter Plan of Treatment Upcoming Encounters Date Type Department Care Team (Late st Contact Info) Description 10/24/2024 3:30 PM EDT Office Visit [facility] MEDICINE [address] [place] [address] Cande Tolentino NP [address] [place] [address] documented as of this encounter Visit Diagnoses Not on filedocumented in this encounter Additional Health Concerns Assessment Noted Time PHQ-9 Depression Total Score: 19 024 2:03 PM EST documented as of this encounter Care Teams Metropolitan Editor Relationship Specialty Start Date End Date Cande Tolentino NP [address] [place] [address] PCP - General Family Medicine 12/29/23 documented as of this encounter
--- OUTSIDE RECORDS SUMMARY | 2024-09-05 16:08 | XMS_ITS | Clinical Summary ---
Author Organization [facility]ly [facility] Address [address] [place] [address] Care Team Providers Care Clinical Project Assistant Name Role Phone Naty Bravo APRN Primary Care Provider + Allergies No known active allergies Medications vitamin with iron and folic acid ( PLUS) 27-1 MG Tab Take 1 tablet by mouth daily. Active ibuprofen (MOTRIN) 800 mg tabletIndication s:Menstrual cramps Take 1 tablet (800 mg total) by mouth 4 times daily (every 6 hours) as needed (menstrual cramps). 30 tablet 0 Active famotidine (PEPCID) 10 MG tablet Take 1-2 tablets (10-20 mg total) by mouth 2 (two) times a day as needed for indigestion or heartburn. 30 tablet 1 Active amoxicillin-clav ulanate (AUGMENTIN) 875-125 MG per tabletIndication s:Left otitis media, unspecified otitis media type Take 1 tablet by mouth 2 (two) times a day. 14 tablet 1 Active fluticasone (FloNASE) 50 mcg/spray nasal sprayIndications :Left otitis media, unspecified otitis media type 2 sprays into each nostril daily. 1 each 1 Active benzonatate (TESSALON) 200 MG capsuleIndicatio ns:Left otitis media, unspecified otitis media type Take 1 capsule (200 mg total) by mouth 3 (three) times a day as needed for cough. 20 capsule 1 Active Active Problems Problem Noted Date Diagnosed Date 01/03/2018 Alpha thalassemia trait 10/14/2017 Overview (10/14/2017): ?Alpha thalassemia trait vs iron deficieny anemia Obesity affecting in second trimester 10/14/2017 Overview (10/14/2017): BMI=43 Immunizations Immunization Administration Dates Next Due Rho (D) Immune Globulin 02/23/2018(Deferred: - p t rh+) Tdap 02/23/2018(Deferred: - received during PNC),12/22/2017 Social History Tobacco Use Types Packs/Day Years Used Date Smoking Tobacco: Former Cigarettes Q uit: 06/2017 Smokeless Tobacco: Never Alcohol Use Standard Drinks/Week Comments No 0 (1 standard drink = 0.6 oz pur e alcohol) Comments No Sex and Gender Information Value Date Recorded Sex Assigned at Not on file Legal Sex Female 3:04 PM EDT Gender Identity Not on file Sexual Orientation [...] series) 2012 Pap Smear (Ages 21-65) 2014 COVID-19 Vaccine (2023-2 5 season) 2023 10/02/2020, 09/04/2020 Influenza Vaccine 11/24/2024 DTaP/Tdap/Td Vaccines (2 - T d or [...] Blood specimen (specimen) Blood specimen / Unknown us External Provider LAB BLOOD ORDERABLES Final Result Performing Organization Address City/State/[facility] Co de Phone Number [facility] from Last 3 Months or Most Recently Relevant to Health Maintenance Insurance TPL (AUTO/LIABILITY) WORKER'S COMP Advance Directives * Full Code (Latest Code Status on File) Date Activated Date Inactivated Comments 02/21/2018 6:48 PM 02/25/2018 1:21 PM * Full Code Date Activated Date Inactivated Comments 02/20/2018 10:17 AM 02/21/2018 6:48 PM * Full Code Date Activated Date Inactivated Comments 01/03/2018 8:55 AM 02/20/2018 10:15 AM Care Teams Clinical Project Assistant Relationship Specialty Start Date End Date Naty Bravo APRN [address] [place] [address] PCP - General Adult Health - PA/APNP/HEAVY EQUIPMENT OPERATING ENGINEER/VESSEL TRAFFIC OFFICER 08/10/20
--- OUTSIDE RECORDS SUMMARY | 2024-09-05 16:08 | XMS_ITS | Encounter Summary ---
Author Organization [facility] Address [address] [place] [address] Care Team Providers Care Citrix Engineer Name Role Phone Unknown Primary Care Provider Naty Bravo APRN Primary Care Provider + Encounter Details Date Type Department Care Team (Late st Contact Info) Description 07/24/2020 Scanned Document [facility] [address] [place] [phone] Primary Care, Scan Social History Tobacco Use [...] encounter Results * HX OUTSIDE ORDER (07/24/2020) us Scan Primary Care HX AMB PROCEDURES Final Result documented in this encounter Visit Diagnoses Not on filedocumented in this encounter Care Teams Citrix Engineer Relationship Specialty Start Date End Date Unknown Unknow Provider Address PCP - General 04/21/20 08/09/20 Naty Bravo APRN [address] [place] [address] PCP - General Adult Health - PA/APPAULETTE/DOUGH CUTTER/PAZ 08/10/20 documented as of this encounter
--- OUTSIDE RECORDS SUMMARY | 2024-09-05 16:08 | XMS_ITS | Encounter Summary ---
Author Organization [employer] Address [address] [facility] 7t [place] [address] Care Team Providers Care Recovery Coach Name Role Phone CamCande sanchez PAULETTE Primary Care Provider [phone] Encounter Details Date Type Department Care Team (Latest Contact Info) Description 09/05/2024 Travel Social History Tobacco Use Types Packs/Day Years [...] Description 10/24/2024 3:30 PM EDT Office Visit [facility] MEDICINE [address] [place] [address] Cande Tolentino NP [address] [place] [address] documented as of this encounter Visit Diagnoses Not on filedocumented in this encounter Additional Health Concerns Assessment Noted Time PHQ-9 Depression Total Score: 19 024 2:03 PM EST documented as of this encounter Care Teams Recovery Coach Relationship Specialty Start Date End Date Cande Tolentino NP [address] [place] [address] PCP - General Family Medicine 12/29/23 documented as of this encounter
--- OUTSIDE RECORDS SUMMARY | 2024-09-05 16:08 | XMS_ITS | Encounter Summary ---
Author Organization [employer] Address [address] [facility] 7 [place] [address] Care Team Providers Care Roll Or Tape Edge Machine Operator Name Role Phone Rhonda Mejia Primary Care Provider [phone] Cande Tolentino NP Primary Care Provider [phone] Reason for Visit * Reason Onset Date Comments Med Refill 05/04/2023 Encounter Details Date Type Department Care Team (Late st Contact Info) Description 05/04/2023 Refill [facility] MEDICINE [address] [place] [address] Rhonda Mejia FNP [address] [place], [place] [phone] Gastroesophageal reflux disease without esophagitis Social History [...] Description 10/24/2024 3:30 PM EDT Office Visit [facility] MEDICINE [address] [place] [address] Cande Tolentino NP [address] [place] [address] documented as of this encounter Visit Diagnoses Diagnosis Gastroesophageal reflux disease without esophagitis Esophageal reflux documented in this encounter Additional Health Concerns Assessment Noted Time PHQ-9 Depression Total Score: 14 023 2:16 PM EDT documented as of this encounter Care Teams Roll Or Tape Edge Machine Operator Relationship Specialty Start Date End Date Rhonda Mejia FNP [address] [place] [address] PCP - General Family Medicine 08/19/22 12/28/23 Cande Tolentino NP [address] [place] [address] PCP - General Family Medicine 12/29/23 documented as of this encounter
--- OUTSIDE RECORDS SUMMARY | 2024-09-05 16:08 | XMS_ITS | Encounter Summary ---
Author Organization [employer] Address [address] [facility] 7 [place] [address] Care Team Providers Care Solution Professional Name Role Phone Rhonda Mejia Primary Care Provider [phone] Cande Tolentino NP Primary Care Provider [phone] Reason for Visit * Reason Onset Date Comments Med Refill 09/06/2023 Encounter Details Date Type Department Care Team ([facility] st Contact Info) Description 09/06/2023 Refill [facility] MEDICINE [address] [place] [address] Rhonda Mejia FNP [address] [place], [place] [phone] Depression with anxiety Social History Tobacco Use [...] Description 10/24/2024 3:30 PM EDT Office Visit [facility] MEDICINE [address] [place] [address] Cande Tolentino NP [address] [place] [address] documented as of this encounter Visit Diagnoses Diagnosis Depression with anxiety Dysthymic disorder documented in this encounter Additional Health Concerns Assessment Noted Time PHQ-9 Depression Total Score: 20 024 2:33 PM EST documented as of this encounter Care Teams Solution Professional Relationship Specialty Start Date End Date Rhonda Mejia FNP [address] [place] [address] PCP - General Family Medicine 08/19/22 12/28/23 Cande Tolentino NP [address] [place] [address] PCP - General Family Medicine 12/29/23 documented as of this encounter
[2024-09-05 16:19] LABS: MANUAL DIFF FLAG NO
[2024-09-05 16:28] LABS: Basophils Absolute Auto 0.1 X10*3/uL (0.0-0.2); Basophils Percent Auto 0.5 % (0-2); Eosinophils Absolute Auto 0.2 X10*3/uL (0.0-0.4); Eosinophils Percent Auto 1.4 % (0-4); Hemoglobin 11.8 g/dl (12.0-16.0); Imm Gran Abs Auto 0.06 X10*3/uL (0.00-0.03); Imm Gran Pct Auto 0.5 % (0.0-0.4); Lymphocytes Absolute Auto 3.2 X10*3/uL (1.2-4.9); Lymphocytes Percent Auto 27.2 % (20-40); Mean Corpuscular HGB Conc 31.9 g/dl (31.0-35.0); Mean Corpuscular Hemoglobin 22.3 pg (27.0-33.0); Mean Corpuscular Volume 69.9 fL (80.0-98.0); Mean Platelet Volume 10.5 fL (9.4-12.3); Monocytes Absolute Auto 0.7 X10*3/uL (0.1-1.2); Monocytes Percent Auto 5.9 % (2-11); Neutrophils Absolute Auto 7.6 x10*3/uL (2.0-8.3); Neutrophils Percent Auto 64.5 % (45-73); Platelet Count 420 X10*3/uL (160-400); Red Blood Count 5.29 X10*6/uL (4.20-5.50); Red Cell Distribution Width 16.2 % (11.0-16.0); White Blood Count 11.7 X10*3/uL (4.8-10.8)
[2024-09-05 17:10] LABS: Erythrocyte Sedimentation Rate 15 MM/HR (0-20)
[2024-09-05 17:17] LABS: C Reactive Protein 1.02 mg/dL (< or = 0.50)
== END 2024-09-05 15:12 | disposition home or self-care (01) ==
LOC: HO.HHCL 15:11
PROVIDERS: Visit Provider Nurse Practitioner Family
DX: R10.9 Unspecified abdominal pain (principal)
CPT/HCPCS: 36415; 85025; 85652; 86140

== ENCOUNTER 2024-10-03 06:19 | Day surgery (SDC) | payer MEDICAID, SELFPAY ==
--- OUTSIDE RECORDS SUMMARY | 2024-09-26 13:47 | XMS_ITS | Encounter Summary ---
Author Organization [facility] Address [address] [place] [address] Care Team Providers Care Expansion Joint Builder Name Role Phone Unknown Primary Care Provider Naty Bravo APRN Primary Care Provider + Encounter Details Date Type Department Care Team (Late st Contact Info) Description 07/24/2020 Scanned Document [facility] [address] [place] [phone] Primary Care, Scan Social History Tobacco Use [...] on filedocumented in this encounter Care Teams Expansion Joint Builder Relationship Specialty Start Date End Date Unknown Unknow Provider Address PCP - General 04/21/20 08/09/20 Naty Bravo APRN [address] [place] [address] PCP - General Adult Health - PA/APPAULETTE/OPERATOR MAINTAINER/PAZ 08/10/20 documented as of this encounter
--- NOTE | 2024-10-02 10:26 | P.CONAN_ITS ---
HPI - Anesthesia Eval Consult details Narrative: 29yo F for Colonoscopy BMI 48.8 PMFSH Active Problems Active Problems: All Active Problems Change in bowel habit (Acute) History of diverticulitis (Acute) Diverticulosis (Acute) HTN (hypertension) with goal to be determined (Acute) Morbid obesity (Acute) Past Medical History Medical History COVID-19 Urinary tract infection HTN (hypertension) with goal to be determined Morbid obesity No pertinent past medical history Family History Family History Mother Paroxysmal dystonia Diabetes Father Family history unknown Daughter No problems noted. Surgical History Surgical History Hx of wisdom tooth extraction History of wisdom tooth extraction, class I edentulism History of laparoscopic cholecystectomy Social History Social History Household Members: Family and Children Housing: Apartment Do you presently have visiting nurse or other home services: No Alcohol intake: never Patient Tobacco Use Status: Former Tobacco user Tobacco use type: Cigarette Cigarette Packs Per Day: 0.5 Cigarettes Per Day: 7 e-Cigarette/Vaping Use: Never Used Substance Use Type: Marijuana service: No Meds Allergies Allergy/AdvReac Type Severity Reaction Status Date / Time No Known Allergies (No Known Allergy Verified 08/02/24 14:20 Allergies*) Home Medications ?Medication ?Instructions ?Recorded ?Confirmed ?Last Taken ?Type No Known Home Meds 10/03/24 10/03/24 Un known History Assessment and Plan Assessment Anesthesia Assessment: Chart Reviewed
[2024-10-03 07:00] VITALS: BP 145/100; PULSE 78; RESP 18; TEMP 36.9; O2SAT 99; BMI 50.7
[2024-10-03 07:11] LABS: UPreg QC Valid YES
[2024-10-03 07:12] LABS: Urine Pregnancy NEGATIVE (NEGATIVE)
[2024-10-03] MEDS: Lactated Ringers 1,000 ML 100 ML IVCONT (07:15)
--- NOTE | 2024-10-03 07:42 | MHC.SHP ---
Pre-Procedural Eval Section A - 24 Hr Update-Section A only Date of Service: 10/03/24 Section B - Complete if H&P > 30 days Chief Complaint: Hx of diverticulitis, chronic diarrhea Details of Present Illness: COVID-19 Urinary tract infection HTN (hypertension) with goal to be determined Morbid obesity No pertinent past medical history Surgical History Hx of wisdom tooth extraction History of wisdom tooth extraction, class I edentulism History of laparoscopic cholecystectomy Present Medications: see Short Stay Collaborative assessment Allergies: Allergies Allergy/AdvReac Type Severity Reaction Status Date / Time No Known Allergies Allergy Verified 08/02/24 14:20 [No Known Allergies*] Review of Systems Review of Systems Comment: 10 point ROS negative Exam Exam Comment: Gen appear: No acute distress HEENT: no icterus Chest: No overt resp distress Abd: soft, nontender, nondistended Psych: Stable affect, answering questions appropriately Neuro: A/Ox3 noted to move all extremities spontaneously Ext: no peripheral edema Plan Diagnosis/Plan: Unchanged I have reviewed the history and physical and performed a pertinent physical examination on my patient. No changes have occurred unless specified. Time Spent With Patient Time: Total time managing care of this patient today ____ minutes.
--- NOTE | 2024-10-03 08:14 | P.CONAN_ITS ---
[facility] Active Problems Active Problems: All Active Problems Change in bowel habit (Acute) History of diverticulitis (Acute) Diverticulosis (Acute) HTN (hypertension) with goal to be determined (Acute) Morbid obesity (Acute) Past Medical History Medical History COVID-19 Urinary tract infection HTN (hypertension) with goal to be determined Morbid obesity No pertinent past medical history Patient : No Family History Family History Mother Paroxysmal dystonia Diabetes Father Family history unknown Daughter No problems noted. Family history of problems with anesthesia: No Surgical History Surgical History Hx of wisdom tooth extraction History of wisdom tooth extraction, class I edentulism History of laparoscopic cholecystectomy History of Problems with Anesthesia: No Social History Social History Household Members: Family and Children Housing: Apartment Do you presently have visiting nurse or other home services: No Alcohol intake: never Patient Tobacco Use Status: Former Tobacco user Tobacco use type: Cigarette Cigarette Packs Per Day: 0.5 Cigarettes Per Day: 7 e-Cigarette/Vaping Use: Never Used Substance Use Type: Marijuana Have you been hit, kicked, punched, or otherwise hurt by someone within the past year? If so, by whom?: No Advance Directives: No Advance Directives Information Provided: Yes Patient : No FDLMP: 2 weeks ago service: No Meds Allergies Allergy/AdvReac Type Severity Reaction Status Date / Time No Known Allergies Allergy Verified 08/02/24 14:20 [No Known Allergies*] Active Medications: Current Medications Lactated Ringer's (Lr) 1,000 mls @ 100 mls/hr IVCONT .Q10H JESSE Last Admin: 10/03/24 07:15 Dose: 100 mls/hr Home Medications ?Medication ?Instructions ?Recorded ?Confirmed ?Last Taken ?Type No Known Home Meds 10/03/24 10/03/24 Unknown History Exam Height,Weight and Vital Signs: Height 5 ft Weight 117.8 kg Last Vital Signs Temp 98.5 F 10/03/24 07:00 Pulse 78 10/03/24 07:00 Resp 18 10/03/24 07:00 BP 145/100 H 10/03/24 07:00 Pulse Ox 99 10/03/24 07:00 O2 Del Method Room Air 10/03/24 07:00 Pertinent Lab Results Pertinent Lab Results: Laboratory Tests 10/03/24 06:51 Urine Test NEGATIVE Airway Mallampati Class: II TM Dist: >3cm Neck ROM: Full Heart: RRR Lungs: CTA Assessment and Plan Assessment Anesthesia Assessment: Anesthesia Plan Discussed Final Anesthetic Review Family History of Problems with Anesthesia: No History of Problems with Anesthesia: No ASA Class: II and III Final Preanesthetic Review: Meds/Allgs Chart Reviewed, Consent Obtained/Reviewed and Anes Risks/Benef Reviewed Patient Risk: Low Procedure Risk: Low Anesthetic Plan Anesthetic Plan: MAC: Disposition: Standard PACU
--- NOTE | 2024-10-03 08:20 | P.OPN-COLO_ITS ---
Colonoscopy Operative Note Operative Note Date of Service: 10/03/24 Narrative: Procedure: Colonoscopy Indication: Hx of diverticulitis Endoscopist: Lindy Stacy MD Anesthesia Provider: Dr Aline Hinton Anesthesia type: MAC Instrument: Olympus [id number]-H190L Consent: Indication, risks vs benefits, and alternatives were discussed with the patient who gave written informed consent to proceed. EKG, pulse, pulse oximetry and blood pressure were monitored throughout the procedure. Please see anesthesia flowsheet. Procedure: The patient was brought to the procedure room and placed in the left lateral decubitus position. An abdominal binder was affixed to the lower abdomen. IV medications were administered by the anesthesia provider in attendance. A digital rectal exam was performed which was abnormal due to finding of external hemorrhoids. A distal attachment cap was affixed to the tip of the colonoscope which was then inserted through the anus and advanced through the colon to the cecum at 75 cm,and terminal ileum. Appendiceal orifice and ileocecal valve were identified. Mucosa was carefully examined under high definition white light as the instrument was slowly withdrawn in a retrograde panoramic fashion. Retroflexion was performed in ascending colon and rectum. The procedure was not difficult. There were no immediate obvious complications. The quality of the prep was BBPS: 3+2+3 = adequate Withdrawal time 8 minutes. Limitations: No limitations. Findings: Mucosa: Normal to cecum and terminal ileum. Cold forceps biopsies were taken from the right and left side of the colon to rule out microscopic colitis. Protruding lesions: * medium internal hemorrhoids without stigmata of recent bleeding. Excavated lesions: * Moderate diverticulosis of sigmoid colon. Impression: 1. Normal colon and terminal ileum mucosa 2. Diverticulosis 3. External and internal hemorrhoids Recommendations: - Follow path results. - Begin asymptomatic colorectal cancer screening at 45 years of age.
[2024-10-03 08:26] VITALS: BP 102/56; PULSE 84; RESP 16; TEMP 36.8; O2SAT 96
[2024-10-03 08:46] VITALS: BP 121/77; PULSE 95; RESP 18; TEMP 36.8; O2SAT 98
--- NOTE | 2024-10-03 09:39 | HO.POSTANES ---
Post Anesthesia Evaluation Post Anesthesia Evaluation Date of Service: 10/03/24 Vital Signs: Vital Signs Temp Pulse Resp BP Pulse Ox O2 Del Method 10/03/24 08:46 98.3 F 95 18 121/77 98 Room Air 10/03/24 08:26 98.3 F 84 16 102/56 L 96 Room Air 10/03/24 07:00 98.5 F 78 18 145/100 H 99 Room Air Anesthesia: Monitored Mental Status: Awake Pain Control: Satisfactory Nausea/Vomiting: None Hydration: Adequate Anesthesia-Related Issues: No Anes. Related Issues
== END 2024-10-03 09:04 | disposition home or self-care (01) ==
PROVIDERS: Nurse Practitioner; PCP Nurse Practitioner Family; Visit Provider Internal Medicine
PROC: 0DJD8ZZ Inspection of Lower Intestinal Tract, Via Natural or Artificial Opening Endoscopic (ICD-10-PCS; CPT 45378; principal; 2024-10-03 07:30)
DX: R19.4 Change in bowel habit (principal); K52.9 Noninfective gastroenteritis and colitis, unspecified; Z87.19 Personal history of other diseases of the digestive system; K57.30 Diverticulosis of large intestine without perforation or abscess without bleeding; K64.8 Other hemorrhoids; K64.4 Residual hemorrhoidal skin tags; K21.9 Gastro-esophageal reflux disease without esophagitis; I10 Essential (primary) hypertension; Z87.440 Personal history of urinary (tract) infections; E66.01 Morbid (severe) obesity due to excess calories; Z90.49 Acquired absence of other specified parts of digestive tract; F17.210 Nicotine dependence, cigarettes, uncomplicated
CPT/HCPCS: 45380; 81025; 88305; J2003; J2704

== ENCOUNTER → 2024-10-03 06:19 | Outpatient (BNV) | payer MEDICAID, SELFPAY | PROVIDERS: PCP Nurse Practitioner Family; Visit Provider Internal Medicine | DX: Z12.11 Encounter for screening for malignant neoplasm of colon (principal); Z87.19 Personal history of other diseases of the digestive system; K57.30 Diverticulosis of large intestine without perforation or abscess without bleeding; K64.8 Other hemorrhoids | CPT/HCPCS: 45380 ==

== ENCOUNTER 2024-10-16 10:24 | Outpatient (AMB) | payer MEDICAID, SELFPAY ==
--- NOTE | 2024-10-16 10:24 | MHC.OFFVIS ---
Intake Visit Reasons: S/p colo Intake Note: # on file verified as active. Est pt for eval s/p colo. CC; Pt denies any additional sx or concerns at this time. Transcription Required: No Accompanied by: Self / Same As Patient Allergies No Known Allergies (No Known Allergies*) Allergy (Verified 08/02/24 14:20) HPI Comments Details: 29 y.o F with PMH of recent uncomplicated diverticulitis x 2 in Feb 2024. Both episodes were uncomplicated. Was seen by surg in Jan 2024. Currently reports persistent dull discomfort in left side all the time but dominique after eating. Irrespective of the type of food. This is assoc wth diarrhea with up to 3-4 BMs per day which are very loose and watery. Baseline prior t diverticulosis was formed BMs. No blood in stool. No fam hx of CRC in [facility]. 10/03/24: [place] 1. Normal colon and terminal ileum mucosa 2. Diverticulosis 3. External and internal hemorrhoids Path: A. Colon, right side, biopsy: Colonic mucosa within normal limits; negative for active, chronic or microscopic colitis. B. Colon, left side, biopsy: Colonic mucosa within normal limits; negative for active, chronic or microscopic colitis 10/16/24: Booked as a tele health visit for post colonoscopy follow-up. Reassured normal findings in the colon, except diverticulosis, that we were already aware of. Biopsies normal. Patient reports stool intermittently fluctuates between solid and liquid. No urgency. No abdominal pain. PFSH Medical History COVID-19 Urinary tract infection HTN (hypertension) with goal to be determined Morbid obesity No pertinent past medical history Surgical History Hx of wisdom tooth extraction History of wisdom tooth extraction, class I edentulism History of laparoscopic cholecystectomy Family History Mother Paroxysmal dystonia Diabetes Father Family history unknown Daughter No problems noted. Social History Household Members: Family and Children Housing: Apartment Do you presently have visiting nurse or other home services: No Alcohol intake: never Patient Tobacco Use Status: Former Tobacco user Tobacco use type: Cigarette Cigarette Packs Per Day: 0.5 Cigarettes Per Day: 7 e-Cigarette/Vaping Use: Never Used Substance Use Type: Marijuana service: No Review of Systems Const All systems reviewed & are unremarkable except as noted in HPI and below Physical Exam Video visit: No acute distress No icterus noted No facial asymmetry Speaking in full sentences Telehealth Telehealth Telehealth Platform: [employer] Location of provider rendering services: practice address Location of patient: address on file Patient Identification confirmed using: Name, : Yes Telehealth method: video Patient verbally consented to treatment: Yes Patient verbally consented to billing insurance company: Yes Patient informed of any privacy concerns related to visit: Yes Minutes spent on Phone/Video with Pt.: 12 Assessment & Plan Assessment & Plan (1) Diverticulosis: Code(s): K57.90 - Diverticulosis of intestine, part unspecified, without perforation or abscess without bleeding Category: Medical (2) Change in bowel habit: Code(s): R19.4 - Change in bowel habit Category: Medical Plan Normal findings of the colonoscopy and biopsies conveyed. Advised incorporating fiber as a bulking agent to help with stool consistency. In addition, can take Imodium as needed for intermittent loose stools. Start asymptomatic colorectal cancer screening at age 43. Pt being discharged back to PCP's care. Follow up with GI as needed. Coding Level of Care Code Tele Est Pt Level 3 (55470) Diagnoses Diverticulosis K57.90 Change in bowel habit R19.4
--- OUTSIDE RECORDS SUMMARY | 2024-10-16 11:37 | XMS_ITS | Clinical Summary ---
Author Organization [facility] Address [address] [place] [address] Care Team Providers Care Medical Imaging Technologist Name Role Phone Naty Bravo APRN Primary [...] 101 03/12/2021 9:17 AM EST Temperature 36.4 C (97.5 F) 03/12/2021 9:17 AM EST Respiratory Rate 16 03/12/2021 9:17 AM EST [...] BLOOD ORDERABLES Final Result Performing Organization Address City/State/[facility] Co de Phone Number [facility] [...] 8:55 AM 02/20/2018 10:15 AM Care Teams Medical Imaging Technologist Relationship Specialty Start Date End Date Naty Bravo APRN [address] [place] [id number] PCP - General Adult Health - PA/APNP/DOCUMENT MANAGEMENT CONSULTANT/FILTER PRESS TENDER 08/10/20
== END 2024-10-16 11:53 | disposition home or self-care (01) ==
LOC: HO.HGI 10:24
PROVIDERS: PCP Nurse Practitioner Family; Visit Provider Internal Medicine
DX: K57.90 Diverticulosis of intestine, part unspecified, without perforation or abscess without bleeding (principal); R19.4 Change in bowel habit
CPT/HCPCS: 99213